=== PATIENT | female | born 1950 | race Caucasian/White ===

== ENCOUNTER → 2018-03-09 10:05 | Outpatient (CLI) | payer MEDICARE, OTHER, SELFPAY ==
[2018-03-09 12:46] LABS: Anion Gap 12 (5-15); BUN 15 mg/dL (7-18); BUN/Creat Ratio 22.9 RATIO (10-20); CRP, High Sensitivity Cardiac 1.84 mg/L; Calcium,Total 9.5 mg/dL (8.5-10.1); Chloride 105 mmol/L (98-107); Cholesterol 406 mg/dL (200); Creatinine, Serum 0.66 mg/dL (0.55-1.02); EST Glomerular Filtration Rate 96 mL/min (>60); Est Glom Filt Rate - Afr Amer 116 mL/min (>60); Glucose 92 mg/dL (74-106); High Density Lipoprotein 54 mg/dL; Sodium Level 143 mmol/L (136-145); Triglycerides 99 mg/dL; Very Low Density Lipoprotein 20 mg/dL (5-40)
[2018-03-09 12:50] LABS: Vitamin D,25 Hydroxy 59.2 ng/mL (29.95-100.01)
== END ==
PROVIDERS: Family Provider Family Medicine; PCP Family Medicine; Visit Provider Family Medicine
DX: I10 Essential (primary) hypertension (principal); E78.5 Hyperlipidemia, unspecified; E55.9 Vitamin D deficiency, unspecified
CPT/HCPCS: 36415; 80048; 80061; 82306; 86141

== ENCOUNTER → 2018-04-13 06:57 | Outpatient (CLI) | payer MEDICARE, OTHER, SELFPAY ==
--- NOTE | 2018-04-13 07:00 | BI_ITS ---
MAMMOGRAPHY - BILATERAL SCREENING 3-D HERBIE SYNTHESIS REASON FOR EXAM: Female, 68 years old. Bilateral Screening 3-D tomosynthesis PERTINENT HISTORY: Left breast carcinoma with lumpectomy and radiation treatment 2009. No significant family history. TECHNIQUE: 2-D mammograms and 3-D Heribe synthesis of the breast (s) were performed. CAD was performed. COMPARISON: 03/18/2017, 03/04/2016. FINDINGS: The breast composition is composed of scattered fibroglandular density. Scattered benign appearing calcifications are again seen. No dense spiculated dominant masses or suspicious microcalcification cluster are identified. No new architectural distortion, asymmetric density, adenopathy, skin thickening or nipple retraction identified. There has been no significant change since the most recent prior study including left breast postsurgical changes. BI/SCREENING MAMM (CAD), BILAT IMPRESSION: No mammographic sign of malignancy. Routine yearly mammograms recommended. ASSESSMENT CATEGORY: BIRADS Category 2: Benign. A letter regarding these results will be sent to the patient by the facility within 30 days. FOLLOW UP RECOMMENDATION: Yearly follow up mammogram recommended. (A) Negative mammographic results should not deter biopsy as a palpable lesion if present should be followed on clinical grounds and biopsy performed if clinically persistent for 3 months or increasing size. Approximately 10% of breast cancers are not detected by mammography. A normal mammogram should not delay biopsy of a clinically suspicious abnormality. Dense breast tissue mainstream neoplasm. Electronically Signed: Ramon Becerra, at 20:38 EDT Tel , Service support ,
== END ==
PROVIDERS: Family Provider Family Medicine; PCP Family Medicine; Referring Provider Family Medicine; Visit Provider Family Medicine
DX: Z12.31 Encounter for screening mammogram for malignant neoplasm of breast (principal)
CPT/HCPCS: 77063; 77067

== ENCOUNTER → 2018-10-31 14:51 | Outpatient (CLI) | payer MEDICARE, OTHER, SELFPAY ==
[2018-10-31 17:45] LABS: Absolute Lymphocyte Count 2.05 X10^3/ul (0.83-4.51); Absolute Neutrophil Count 4.5 X10^3/uL (2.0-7.7); Basophil# 0.04 X10^3/uL; Basophil% 0.5 % (0-1); Eosinophil# 0.25 X10^3/uL; Eosinophils% 3.4 % (0-5); Hematocrit 38.5 % (37-47); Hemoglobin 12.5 g/dl (12.0-15.0); Lymphocyte # 2.05 X10^3/ul (4.0); Lymphocyte % 27.8 % (19-41); Mean Corp Hgb Conc 32.5 g/gl (32-36); Mean Corpuscular Hgb 29.6 pg (27.0-32.0); Mean Platelet Vol. 9.2 fl (6.2-12.0); Monocyte# 0.49 X10^3/uL; Monocyte% 6.6 % (0-10); Neutrophil # 4.53 X10^3/uL (2.7-7.7); Neutrophil % 61.6 % (47-70); Platelet Count 296 K/mm3 (150-450); RBC Distribution Width CV 12.9 % (11.6-14.6); RBC Distribution Width SD 42.5 fl (35.1-43.9); Red Blood Count 4.23 M/mm3 (4.2-5.4); White Blood Count 7.4 K/mm3 (4.4-11.0)
[2018-10-31 17:46] LABS: POSITIVE COUNT NO; POSITIVE DIFFERENTIAL NO; POSITIVE MORPHOLOGY NO
[2018-10-31 18:18] LABS: AST(SGOT) 22 U/L (15-37); Alanine Aminotransfer ALT/SGPT 43 U/L (13-56); Alkaline Phosphatase 146 U/L (45-117); Anion Gap 8 (5-15); BUN 17 mg/dL (7-18); Calcium,Total 9.3 mg/dL (8.5-10.1); Chloride 105 mmol/L (98-107); Creatinine, Serum 0.63 mg/dL (0.55-1.02); EST Glomerular Filtration Rate 100 mL/min (>60); Est Glom Filt Rate - Afr Amer 121 mL/min (>60); Glucose 82 mg/dL (74-106); Potassium 3.6 mmol/L (3.5-5.1); Sodium Level 140 mmol/L (136-145); Thyroid Stim Hormone (TSH) 0.82 uIU/mL (0.358-3.74)
[2018-11-01 13:18] LABS: GGTP 141 U/L (5-55)
== END ==
PROVIDERS: Family Provider Family Medicine; PCP Family Medicine; Visit Provider Family Medicine
DX: R00.2 Palpitations (principal); R74.8 Abnormal levels of other serum enzymes
CPT/HCPCS: 36415; 80053; 82977; 84443; 85025

== ENCOUNTER → 2018-11-07 11:56 | Outpatient (CLI) | payer MEDICARE, OTHER, SELFPAY ==
[2018-11-07 12:03] LABS: Lyme Ab Screen Interpretation REF LAB
[2018-11-11 11:59] LABS: Lyme Scn Total Ab w/Rflx <0.91 ISR (0.00-0.90)
== END ==
PROVIDERS: Family Provider Family Medicine; PCP Family Medicine; Referring Provider Family Medicine; Visit Provider Family Medicine
DX: T14.8XXA Other injury of unspecified body region, initial encounter (principal); W57.XXXA Bitten or stung by nonvenomous insect and other nonvenomous arthropods, initial encounter; Y93.9 Activity, unspecified; Y92.9 Unspecified place or not applicable; Y99.9 Unspecified external cause status
CPT/HCPCS: 36415; 86618

== ENCOUNTER → 2018-11-08 08:47 | Outpatient (CLI) | payer MEDICARE, OTHER, SELFPAY ==
--- NOTE | 2018-11-08 08:51 | US_ITS ---
STUDY: ABDOMINAL ULTRASOUND - RIGHT UPPER QUADRANT REASON FOR VISIT: Female, 68 years old. Elevated liver enzymes. TECHNIQUE: Ultrasound evaluation of the right upper quadrant was performed with real-time and static connell-scale imaging. TECHNICAL QUALITY: Adequate. COMPARISON: None. FINDINGS: Liver: The liver measures 14.4 cm. There is normal echogenicity of the liver. The bile ducts are within normal limits. There is hepatic color flow. The direction of portal flow is hepatopetal. There is no demonstrated mass lesion. Gallbladder: Normal distended gallbladder. The gallbladder wall measures 2.3 mm. There is a negative sonographic Webb's sign. There is no pericholecystic fluid. There are no gallstones. There is a 4 mm polyp adherent to the gallbladder wall. Common Bile Duct (C.B.D.): The common bile duct measures 4.3 mm. Pancreas: Normal size of the head, body and tail of the pancreas. There is normal echogenicity of the pancreas. There is no demonstrated pancreatic mass or cyst. Right Kidney: Normal size of the right kidney. The right kidney measures 11 cm x 4.4 cm x 4.5 cm. Normal renal cortex. The right cortex measures 1.2 cm. There is no demonstrated renal mass or cyst. There is no right hydronephrosis. US/Abdomen Limited IMPRESSION: There is evidence of a 4 mm gallbladder polyp. Electronically Signed: Kurtis Plaza, at 15:41 EDT , Service support ,
== END ==
PROVIDERS: Family Provider Family Medicine; PCP Family Medicine; Referring Provider Family Medicine; Visit Provider Family Medicine
DX: R00.2 Palpitations (principal)
CPT/HCPCS: 76705

== ENCOUNTER → 2019-01-02 11:34 | Outpatient (CLI) | payer MEDICARE, OTHER, SELFPAY ==
[2019-01-02 14:29] LABS: AST(SGOT) 20 U/L (15-37); Alanine Aminotransfer ALT/SGPT 31 U/L (13-56); Albumin, Serum 3.8 g/dL (3.2-5.0); Alkaline Phosphatase 120 U/L (45-117); Bilirubin, Direct 0.06 mg/dL (0.00-0.30); GGTP 58 U/L (5-55); Globulin 3.7 g/dL (2.2-4.2); Protein, Total 7.5 g/dL (6.4-8.2)
== END ==
PROVIDERS: Family Provider Family Medicine; PCP Family Medicine; Visit Provider Family Medicine
DX: R74.8 Abnormal levels of other serum enzymes (principal)
CPT/HCPCS: 36415; 80076; 82977

== ENCOUNTER 2019-01-19 10:10 | Emergency (ER) | payer MEDICARE, OTHER, SELFPAY ==
[2019-01-19 10:12] VITALS: BP 172/77; PULSE 67; RESP 17; TEMP 36.7; O2SAT 99; BMI 24.4
--- NOTE | 2019-01-19 10:38 | RAD_ITS ---
STUDY: X-RAY CHEST REASON FOR EXAM: Female, 68 years old. Chest pain following a fall. TECHNIQUE: Single AP portable view of the chest. COMPARISON: None. FINDINGS: Hyperinflation. Scattered calcified granulomas. The lungs are clear. There is no demonstrated pleural abnormality. Normal size heart. Normal mediastinum and emiliano. Normal visualized pulmonary arteries. There is atherosclerotic calcification of the aortic arch with tortuosity. There are degenerative changes of the visualized thoracic spine. Normal visualized ribs, clavicles, and shoulders. There is no demonstrated abnormality of the visualized soft tissue structures of the upper abdomen. RAD/Chest 1 View (Portable) IMPRESSION: Hyperinflation. No acute abnormality is seen. Electronically Signed: Kurtis Plaza, at 11:05 EDT , Service support ,
--- NOTE | 2019-01-19 10:38 | RAD_ITS ---
STUDY: X-RAY - LEFT SHOULDER REASON FOR EXAM: Female, 68 years old. Shoulder pain following a fall. TECHNIQUE: 4 view(s) of the shoulder. COMPARISON: None. FINDINGS: Normal glenohumeral articulation. Normal acromioclavicular joint. Normal acromion. Nondisplaced avulsion fracture of the distal aspect of the left clavicle. Normal humeral head and visualized proximal humerus. The soft tissue structures are unremarkable. Normal visualized pulmonary apex. RAD/Shoulder min 2 Views IMPRESSION: Nondisplaced avulsion type fracture of the distal portion of the left clavicle. Electronically Signed: Kurtis Plaza, at 11:06 EDT , Service support ,
[2019-01-19] MEDS: fentaNYL 100 MCG/2 ML Ampul 50 MCG IM (10:43)
--- NOTE | 2019-01-19 11:17 | ED.DCSUM_ITS ---
- ER Visit Summary Date of Service: 01/19/19 Chief Complaint: Fall History of Present Illness: The patient is a [address] Herrera. She reports that she was moving a canopy down the steps and lost her balance. She fell off the steps today did not have a railing from approximately 5 to 6 feet. She reports that she has left shoulder pain that stated 10 severity at rest and 10 out of 10 with movement. She has neck pain is 5/10 severity. She is right- hand dominant. Patient denies any blood in the head or loss of consciousness. No wrist or hip pain. Physical Examination: Vitals: Stable. Afebrile. Neck: No vertebral tenderness. Full ROM without difficulty. Cleared by NEXUS criteria. Moderate tenderness palpation over the left trapezius muscle. Back: No vertebral tenderness. General: A&O x 3. NAD. Cardiovascular exam: Regular rate and rhythm, no murmur, rub or gallop. Respiratory exam: Chest nontender. No crepitus. Clear to auscultation bilaterally. No wheezes or stridor. Abdominal exam: Soft, nontender, nondistended, normal bowel sounds. No pain in RUQ or LUQ specifically. No peritoneal signs. Extremity: Severe tenderness palpation over the left AC joint. Mild tenderness palpation over the left deltoid. She is neurovascular intact distal to this. Test Results: Left shoulder x-ray shows a distal clavicle fracture. Chest x-ray shows no acute disease. Emergency Department Course and Treatment: Patient was treated with fentanyl IM prior to the x-rays. She was then given ibuprofen and Percocet p.o. She is placed in a sling. Treatment Plan: Patient will be discharged with Percocet and Colace. Instruction of Dr. Jourdan Valle within a week for another exam. Return to the emergency department for any worsening symptoms. Disposition: To home in improved and stable condition. Impression: 1. Fall. 2. Left clavicle fracture. This note was generated with [employer] dictation software. It may contain incorrect words, spelling, and punctuation that were not noted in review of the chart prior to signing ED Disposition - Plan for ED Patient: Instructions: FRACTURE, Clavicle Prescriptions: Docusate Sodium [Colace] 100 mg PO DAILY #20 cap Prescription Printed Oxycodone HCl/Acetaminophen [Percocet 5/325] 1 tab PO Q6H PRN PRN 5 Days #20 tab PRN Reason: Pain Prescription Printed Referrals: Jourdan Valle MD [STAFF PHYSICIAN] - 1 Week
[2019-01-19] MEDS: Ibuprofen 400 MG Tablet PO (13:00)
[2019-01-19] MEDS: oxyCODONE 5 MG Tablet PO (13:01)
[2019-01-19 13:07] VITALS: PULSE 65; RESP 14; RESP 17; O2SAT 98
== END 2019-01-19 13:10 | disposition home or self-care (01) ==
PROVIDERS: Emergency Provider Emergency Medicine; Family Provider Family Medicine; PCP Family Medicine
DX: S42.035A Nondisplaced fracture of lateral end of left clavicle, initial encounter for closed fracture (principal); M54.2 Cervicalgia; W10.9XXA Fall (on) (from) unspecified stairs and steps, initial encounter; Y93.9 Activity, unspecified; Y92.9 Unspecified place or not applicable; Y99.9 Unspecified external cause status; I10 Essential (primary) hypertension; Z79.899 Other long term (current) drug therapy; Z85.3 Personal history of malignant neoplasm of breast
CPT/HCPCS: 71045; 73030; 96372; 99284

== ENCOUNTER → 2019-05-03 07:37 | Outpatient (CLI) | payer MEDICARE, OTHER, SELFPAY ==
--- NOTE | 2019-05-03 07:40 | BI_ITS ---
MAMMOGRAPHY - BILATERAL SCREENING REASON FOR EXAM: Female, 69 years old. Routine annual screening examination. PERTINENT HISTORY: Personal history of breast cancer. Prior left lumpectomy with radiation therapy. TECHNIQUE: Digital bilateral breast herbie (3D mammographic acquisition) in the CC and MLO projections. 2-D mediolateral oblique (MLO) and craniocaudad (CC) views of both breasts were obtained. CAD: Full Field Digital Mammography with Computer Added Detection was performed. COMPARISON: Comparison is made with prior study dated April 13, 2018 and March 14, 2010. FINDINGS: Breast Composition: There are scattered areas of fibroglandular density. There are no dominant masses or suspicious calcifications. Stable postsurgical appearance of the upper outer quadrant of the left breast and keep with prior lumpectomy. No other significant abnormalities are identified. There has been no significant change since the prior study. BI/SCREEN MAMM (CAD) W/HERBIE BILAT IMPRESSION: Stable bilateral screening mammogram. Yearly follow-up mammogram recommended. (A) ASSESSMENT CATEGORY: BIRADS Category 2: Benign. A letter regarding these results will be sent to the patient by the facility within 30 days. Approximately 10% of breast cancers are not detected by mammography. A normal mammogram should not delay biopsy of a clinically suspicious abnormality. [id number] Electronically Signed: Kurtis Plaza, at 9:53 EDT , Service support ,
== END ==
PROVIDERS: Family Provider Family Medicine; PCP Family Medicine; Referring Provider Family Medicine; Visit Provider Family Medicine
DX: Z12.31 Encounter for screening mammogram for malignant neoplasm of breast (principal); Z85.3 Personal history of malignant neoplasm of breast
CPT/HCPCS: 77063; 77067

== ENCOUNTER → 2019-07-28 09:47 | Outpatient (CLI) | payer MEDICARE, OTHER, SELFPAY ==
[2019-07-28 12:49] LABS: Anion Gap 7 (5-15); BUN 27 mg/dL (7-18); BUN/Creat Ratio 34.5 RATIO (10-20); Calcium,Total 9.7 mg/dL (8.5-10.1); Chloride 105 mmol/L (98-107); Creatinine, Serum 0.78 mg/dL (0.55-1.02); EST Glomerular Filtration Rate 78 mL/min (>60); Est Glom Filt Rate - Afr Amer 94 mL/min (>60); Glucose 70 mg/dL (74-106); Potassium 3.8 mmol/L (3.5-5.1); Sodium Level 139 mmol/L (136-145)
== END ==
PROVIDERS: PCP Family Medicine; Referring Provider Family Medicine; Visit Provider Family Medicine
DX: I10 Essential (primary) hypertension (principal)
CPT/HCPCS: 36415; 80048

== ENCOUNTER → 2020-01-22 14:36 | Outpatient (CLI) | payer MEDICARE, OTHER, SELFPAY ==
--- NOTE | 2020-01-22 14:38 | CT_ITS ---
STUDY: CT LEFT ankle WITH CONTRAST REASON FOR EXAM: Female, 69 years old. PT STATED PAINLESS PALPABLE LUMPS POSTERIOR ANKLE RADIATION DOSAGE (If Supplied By Facility): CTDIvol = ( 6.13 ) mGy, DLP = ( 270.0 ) mGycm TECHNIQUE: Transaxial imaging of the pelvis was performed without oral contrast. IV 100ML ISOVUE 300 was administered intravenously. Individualized dose optimization techniques were used for this CT. COMPARISON: None. FINDINGS: The distal Achilles tendon is thickened measuring 2.6 cm in diameter. Thickened length is 10 cm. There are also calcifications within the tendon. 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 Other possibilities include tophaceous gout, chronic mucoid tendon degeneration, giant cell tumor of the tendon sheath. Bony structures are intact. There is NO intramuscular abnormality. CT/Extremity Lower WITH Contrast IMPRESSION: Distal Achilles tendon mass as described. Electronically Signed: Layo Hooker MD at 3:18 EDT , Service support ,
[2020-01-22 14:56] LABS: CREATININE FINGERSTICK < 0.6 mg/dL (0.55-1.02)
--- NOTE | 2020-01-24 00:50 | ED.RN ---
RADIOLOGY SUPPORT CALLED IN ASKING MORE DETAILS ABOUT EXAM AND REASON FOR ORDER ATTEMPTED TO FIND INFORMATION AT THIS TIME
== END ==
PROVIDERS: PCP Family Medicine; Referring Provider Family Medicine; Visit Provider Family Medicine
DX: R22.42 Localized swelling, mass and lump, left lower limb (principal)
CPT/HCPCS: 73701; Q9967

== ENCOUNTER → 2020-02-06 14:13 | Outpatient (CLI) | payer MEDICARE, OTHER, SELFPAY ==
--- NOTE | 2020-02-06 14:14 | RAD_ITS ---
STUDY: X-RAY - LEFT HAND REASON FOR EXAM: Lump posterior area of the third metacarpophalangeal joint, began years ago, growing with numbness. TECHNIQUE: 3 view(s) of the hand. COMPARISON: None. FINDINGS: There is osteopenia. Normal radiocarpal articulation. Normal distal radioulnar joint. Normal visualized carpal bones. There is moderate to severe joint space narrowing of the triscaphe articulation. There are marginal osteophytes and moderate to severe joint space narrowing of the carpometacarpal articulation of the thumb. Normal second through fifth carpometacarpal joints. Normal metacarpi. Normal metacarpophalangeal joint of the thumb. Normal interphalangeal joint of the thumb. Normal proximal and distal phalanges of the thumb. Normal metacarpophalangeal joints of the second through fifth fingers. Normal proximal and distal interphalangeal joints of the second through fifth fingers. Normal phalanges of the second through fifth fingers. There is a noncalcified soft tissue mass at the dorsal aspect of the third metacarpophalangeal joint. RAD/Hand Min 3 Views IMPRESSION: Soft tissue mass at the dorsal aspect of the third metacarpophalangeal joint. 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 Electronically Signed: Didier Leigh MD at 8:43 EDT Tel , Service support ,
== END ==
PROVIDERS: PCP Family Medicine; Referring Provider Orthopaedic Surgery; Visit Provider Orthopaedic Surgery
DX: M79.642 Pain in left hand (principal)
CPT/HCPCS: 73130

== ENCOUNTER → 2020-02-12 13:57 | Outpatient (CLI) | payer MEDICARE, OTHER, SELFPAY ==
[2020-02-06 15:13] VITALS: BMI 24.4
[2020-02-12 18:24] LABS: Anion Gap 6 (5-15); BUN 16 mg/dL (7-18); BUN/Creat Ratio 23.9 RATIO (10-20); Calcium,Total 9.7 mg/dL (8.5-10.1); Chloride 105 mmol/L (98-107); Creatinine, Serum 0.67 mg/dL (0.55-1.02); EST Glomerular Filtration Rate 93 mL/min (>60); Est Glom Filt Rate - Afr Amer 112 mL/min (>60); Glucose 109 mg/dL (74-106); Potassium 3.7 mmol/L (3.5-5.1); Sodium Level 140 mmol/L (136-145)
[2020-02-12 18:26] LABS: Vitamin D,25 Hydroxy 79.7 ng/mL
== END ==
PROVIDERS: PCP Family Medicine; Visit Provider Family Medicine
DX: I10 Essential (primary) hypertension (principal); E55.9 Vitamin D deficiency, unspecified
CPT/HCPCS: 36415; 80048; 82306

== ENCOUNTER → 2020-02-13 17:38 | Outpatient (CLI) | payer MEDICARE, OTHER, SELFPAY ==
[2020-02-06 15:13] VITALS: BMI 24.4
--- NOTE | 2020-02-13 17:39 | MRI_ITS ---
STUDY: MRI LEFT HAND (ATTENTION THIRD FINGER) REASON FOR EXAM: Lump at the dorsal aspect of the third metacarpophalangeal joint for 6-8 months, pain and numbness. TECHNIQUE: Standardized fat and water weighted pulse sequences were obtained in all 3 orthogonal planes. COMPARISON: Radiographs 02/06/2020. FINDINGS: Normal visualized metacarpals and visualized phalanges. There is very mild flexor tenosynovitis of the third digit at the level of the distal metacarpal diaphysis (inversion recovery axial images 4, 5). Otherwise, unremarkable flexor and extensor tendons. There are marginal osteophytes and chondral thinning of the first carpometacarpal articulation (T1 coronal images 8, 9). Normal second through fifth carpometacarpal articulations. There is a small subchondral cyst in the fourth metacarpal head (inversion recovery coronal image 9). Otherwise, unremarkable metacarpophalangeal joints. Normal interphalangeal joints. There is a soft tissue mass surrounding the third extensor tendon at the level of the metacarpophalangeal joint measuring approximately 0.6 x 1.2 x 1.3 cm (AP x transverse x length). The lesion is intermediate on T1 sequences (T1 coronal image 15; T1 axial images 11-13) and on T2 sequences (T2 sagittal image 21) with hypointense inversion recovery signal (inversion recovery coronal images 15, 16). MRI/Upper Ext/No Jt/ wo IMPRESSION: Soft tissue mass surrounding the third extensor tendon at the level of the metacarpophalangeal joint, giant cell tumor of the tendon sheath is a leading differential consideration. Very mild flexor tenosynovitis of the third digit. Arthrosis of the first carpometacarpal articulation. Electronically Signed: Didier Leigh MD at 7:41 EDT Tel , Service support ,
== END ==
PROVIDERS: PCP Family Medicine; Referring Provider Orthopaedic Surgery; Visit Provider Orthopaedic Surgery
DX: M25.842 Other specified joint disorders, left hand (principal)
CPT/HCPCS: 73218

== ENCOUNTER → 2020-06-05 07:14 | Outpatient (CLI) | payer MEDICARE, OTHER, SELFPAY ==
[2020-02-06 15:13] VITALS: BMI 24.4
--- NOTE | 2020-06-05 07:16 | BI_ITS ---
MAMMOGRAPHY - BILATERAL SCREENING REASON FOR EXAM: Female, 70 years old. Routine annual screening examination. PERTINENT HISTORY: Personal history of breast cancer. Prior left lumpectomy with radiation treatment. History of chronic bilateral inversion of the nipples. TECHNIQUE: Digital bilateral breast herbie (3D mammographic acquisition) in the CC and MLO projections. 2-D mediolateral oblique (MLO) and craniocaudad (CC) views of both breasts were obtained. CAD: Full Field Digital Mammography with Computer Added Detection was performed. COMPARISON: Comparison is made with prior study dated 05/03/2019 and 04/13/2018. FINDINGS: Breast Composition: There are scattered areas of fibroglandular density. There are no dominant masses or suspicious calcifications. Stable postsurgical changes are seen in the upper outer quadrant of the left breast in keeping with prior lumpectomy. No other significant abnormalities are identified. There has been no significant change since the prior study. BI/SCREEN MAMM (CAD) W/HERBIE BILAT IMPRESSION: Stable bilateral screening mammogram. Yearly follow-up mammogram recommended. (A) ASSESSMENT CATEGORY: BIRADS Category 2: Benign. A letter regarding these results will be sent to the patient by the facility within 30 days. Approximately 10% of breast cancers are not detected by mammography. A normal mammogram should not delay biopsy of a clinically suspicious abnormality. [id number] Electronically Signed: Kurtis Plaza, at 8:48 EST , Service support ,
== END ==
PROVIDERS: PCP Family Medicine; Referring Provider Family Medicine; Visit Provider Family Medicine
DX: Z12.31 Encounter for screening mammogram for malignant neoplasm of breast (principal); Z85.3 Personal history of malignant neoplasm of breast
CPT/HCPCS: 77063; 77067

== ENCOUNTER → 2020-12-10 14:59 | Outpatient (CLI) | payer MEDICARE, OTHER, SELFPAY ==
[2020-06-10 10:01] VITALS: BMI 24.6
[2020-12-10 18:18] LABS: Anion Gap 6 (5-15); BUN 20 mg/dL (7-18); BUN/Creat Ratio 29.1 RATIO (10-20); Calcium,Total 10.8 mg/dL (8.5-10.1); Chloride 102 mmol/L (98-107); Creatinine, Serum 0.69 mg/dL (0.55-1.02); EST Glomerular Filtration Rate 90 mL/min (>60); Est Glom Filt Rate - Afr Amer 108 mL/min (>60); Glucose 83 mg/dL (74-106); Potassium 3.5 mmol/L (3.5-5.1); Sodium Level 139 mmol/L (136-145)
== END ==
PROVIDERS: PCP Family Medicine; Visit Provider Family Medicine
DX: Z20.822 Contact with and (suspected) exposure to COVID-19 (principal)
CPT/HCPCS: 36415; 80048; 86769

== ENCOUNTER → 2021-02-26 08:35 | Outpatient (CLI) | payer MEDICARE, OTHER, SELFPAY | PROVIDERS: PCP Family Medicine; Referring Provider Family Medicine; Visit Provider Family Medicine | DX: Z20.822 Contact with and (suspected) exposure to COVID-19 (principal) | CPT/HCPCS: 36415; 86769 ==

== ENCOUNTER → 2021-06-13 09:14 | Outpatient (CLI) | payer MEDICARE, OTHER, SELFPAY ==
--- NOTE | 2021-06-13 09:18 | BI_ITS ---
MAMMOGRAPHY - BILATERAL SCREENING REASON FOR EXAM: Female, 71 years old. Routine annual screening examination. PERTINENT HISTORY: Personal history of breast cancer. Prior left lumpectomy and radiation treatment. TECHNIQUE: Digital bilateral breast herbie (3D mammographic acquisition) in the CC and MLO projections. 2-D mediolateral oblique (MLO) and craniocaudad (CC) views of both breasts were obtained. CAD: Full Field Digital Mammography with Computer Added Detection was performed. COMPARISON: Comparison is made with prior study dated 06/05/2020 and 05/03/2019. FINDINGS: Breast Composition: There are scattered areas of fibroglandular density. There are no dominant masses or suspicious calcifications. Once again, the patient is status post lumpectomy in the upper outer quadrant of the left breast with resultant postoperative deformity and scarring. This is unchanged. Stable benign appearing bilateral axillary lymph nodes. No other significant abnormalities are identified. There has been no significant change since the prior study. BI/SCRN MAMM (CAD)W/HERBIE BILAT IMPRESSION: Stable bilateral screening mammogram. Yearly follow-up mammogram recommended. (A) ASSESSMENT CATEGORY: BIRADS Category 2: Benign. A letter regarding these results will be sent to the patient by the facility within 30 days. Approximately 10% of breast cancers are not detected by mammography. A normal mammogram should not delay biopsy of a clinically suspicious abnormality. [id number] Electronically Signed: Kurtis Plaza MD at 10:26 EST , Service support ,
== END ==
PROVIDERS: PCP Family Medicine; Referring Provider Family Medicine; Visit Provider Family Medicine
DX: Z12.31 Encounter for screening mammogram for malignant neoplasm of breast (principal); Z85.3 Personal history of malignant neoplasm of breast
CPT/HCPCS: 77063; 77067

== ENCOUNTER → 2021-11-10 | Outpatient (CLI) | payer MEDICARE, OTHER, SELFPAY ==
[2021-11-10 15:50] LABS: Anion Gap 7 (5-15); BUN 18 mg/dL (7-18); BUN/Creat Ratio 23.9 RATIO (10-20); Calcium,Total 9.8 mg/dL (8.5-10.1); Chloride 106 mmol/L (98-107); Cholesterol 392 mg/dL (200); Creatinine, Serum 0.75 mg/dL (0.55-1.02); EST Glomerular Filtration Rate 81 mL/min (>60); Est Glom Filt Rate - Afr Amer 97 mL/min (>60); Glucose 89 mg/dL (74-106); High Density Lipoprotein 55 mg/dL; Potassium 4.1 mmol/L (3.5-5.1); Sodium Level 140 mmol/L (136-145); Triglycerides 119 mg/dL; Very Low Density Lipoprotein 24 mg/dL (5-40)
== END | disposition home or self-care (01) ==
LOC: MFPLAB 10:12
PROVIDERS: PCP Family Medicine; Visit Provider Family Medicine
DX: I10 Essential (primary) hypertension (principal)
CPT/HCPCS: 36415; 80048; 80061

== ENCOUNTER → 2022-11-23 | Outpatient (CLI) | payer MEDICARE, OTHER, SELFPAY ==
[2022-11-23 10:46] LABS: AST(SGOT) 17 U/L (15-37); Alanine Aminotransfer ALT/SGPT 31 U/L (13-56); Anion Gap 8 (5-15); BUN 24 mg/dL (7-18); BUN/Creat Ratio 34.4 RATIO (10-20); Calcium,Total 9.3 mg/dL (8.5-10.1); Chloride 106 mmol/L (98-107); Cholesterol 380 mg/dL (200); EST Glomerular Filtration Rate 88 mL/min (>60); Est Glom Filt Rate - Afr Amer 106 mL/min (>60); Glucose 105 mg/dL (74-106); High Density Lipoprotein 56 mg/dL; Potassium 3.9 mmol/L (3.5-5.1); Sodium Level 141 mmol/L (136-145); Triglycerides 96 mg/dL; Very Low Density Lipoprotein 19 mg/dL (5-40)
== END | disposition home or self-care (01) ==
LOC: MFPLAB 08:05
PROVIDERS: PCP Family Medicine; Visit Provider Family Medicine
DX: E78.5 Hyperlipidemia, unspecified (principal); I10 Essential (primary) hypertension
CPT/HCPCS: 36415; 80048; 80061; 84450; 84460

== ENCOUNTER → 2022-12-08 | Outpatient (CLI) | payer MEDICARE, OTHER, SELFPAY ==
--- NOTE | 2022-12-08 16:20 | RAD_ITS ---
EXAM: XR SACRUM AND COCCYX, 2 OR MORE VIEWS CLINICAL INDICATION: SACROILIAC PAIN TECHNIQUE: Frontal and lateral views of the sacrum and coccyx. COMPARISON: No relevant prior studies available. FINDINGS: SACRUM/COCCYX: Unremarkable. No displaced fracture. No destructive or sclerotic lesions. Note that overlapping bowel shadows may however obscure fine detail in the frontal view. Sacroiliac joints are unremarkable. SOFT TISSUES: Unremarkable. No soft tissue swelling or gas. RAD/S-I Jts 3 or More Views IMPRESSION: Unremarkable sacro-coccygeal spine. Electronically Signed: Magdiel Hare MD at 17:24 EDT ,
== END | disposition home or self-care (01) ==
LOC: MTRAD 16:18
PROVIDERS: PCP Family Medicine; Referring Provider Family Medicine; Visit Provider Family Medicine
DX: M53.3 Sacrococcygeal disorders, not elsewhere classified (principal)
CPT/HCPCS: 72202

== ENCOUNTER → 2022-12-17 | Outpatient (CLI) | payer MEDICARE, OTHER, SELFPAY ==
--- NOTE | 2022-12-17 14:23 | BI_ITS ---
MAMMOGRAPHY - BILATERAL SCREENING REASON FOR EXAM: Female, 72 years old. Routine annual screening examination. PERTINENT HISTORY: Personal history of breast cancer. Prior left lumpectomy and radiation treatment. Bilateral nipple inversion. TECHNIQUE: Digital bilateral breast herbie (3D mammographic acquisition) in the CC and MLO projections. 2-D mediolateral oblique (MLO) and craniocaudad (CC) views of both breasts were obtained. CAD: Full Field Digital Mammography with Computer Added Detection was performed. COMPARISON: Comparison is made with prior study dated June 13, 2021 and June 05, 2020. FINDINGS: Breast Composition: There are scattered areas of fibroglandular density. There are no dominant masses or suspicious calcifications. The patient is status post lumpectomy in the deep central lateral aspect of the left breast with resultant scarring. No other significant abnormalities are identified. There has been no significant change since the prior study. BI/SCRN MAMM (CAD)W/HERBIE BILAT IMPRESSION: Stable bilateral screening mammogram. Yearly follow-up mammogram recommended. (A) ASSESSMENT CATEGORY: BIRADS Category 2: Benign. A letter regarding these results will be sent to the patient by the facility within 30 days. Approximately 10% of breast cancers are not detected by mammography. A normal mammogram should not delay biopsy of a clinically suspicious abnormality. [id number] Electronically Signed: Kurtis Plaza MD at 15:40 EDT ,
--- NOTE | 2022-12-17 14:28 | BD_ITS ---
STUDY: DUAL ENERGY X-RAY ABSORPTIOMETRY / DXA REASON FOR EXAM: Female, 72 years old. N95.9 TECHNIQUE: Bone Mineral Density (BMD) measurements of lumbar spine and bilateral hips were obtained. COMPARISON: Comparison is made with prior study dated January 25, 2017. FINDINGS: Lumbar Spine (L1-L4): g/cm2 (0.705) / T-score (-3.1) / Z-score (-0.8) Findings are suggestive of osteoporosis with a high fracture risk. Left Femur Total: g/cm2 (0.610) / T-score (-2.7) / Z-score (-1.1) Left Femoral Neck: g/cm2 (0.462) / T-score (-3.5) / Z-score (-1.5) Right Femur Total: g/cm2 (0.633) / T-score (-2.5) / Z-score (-0.9) Right Femoral Neck: g/cm2 (0.521) / T-score (-3.0) / Z-score (-1.0) The T-Scores on the most recent prior examination were: Lumbar Spine (L1-L4): There has been worsening of bone density since the previous examination. Left Femur Total: which represents a worsening of 4.3%. Right Femur Total: which represents a worsening of 0.2%. BD/Dexa Bone Density Study IMPRESSION: The patient is considered osteoporotic as outlined below according to World [employer] (WHO) criteria with a high fracture risk. There has been worsening of bone density since the previous examination. Reference Information: The T-score is the number of standard deviations above or below the standard which is normal for young adults at their peak bone mineral density. The World Health Organization (WHO) interprets the T-scores as follows: Above -1 Normal bone density Between -1 and -2.5 Osteopenia Equal to / or below -2.5 Osteoporosis As a practical clinical guideline, osteopenia may be graded as follows: Mild -1 through -1.5 Moderate -1.6 through -2.0 Severe -2.1 through -2.4 The Z-score is the number of standard deviations above or below age-matched controls. A Z-score of less than -1.5 would be considered abnormal. References: 1. NIH Osteoporosis and Related Bone Diseases www osteo.org 2. International Society for Clinical Densitometry www iscd.org 3. National Osteoporosis Foundation www nof.org Electronically Signed: Kurtis Plaza MD at 14:41 EDT ,
== END | disposition home or self-care (01) ==
LOC: OPBI 14:20
PROVIDERS: PCP Family Medicine; Referring Provider Family Medicine; Visit Provider Family Medicine
DX: Z12.31 Encounter for screening mammogram for malignant neoplasm of breast (principal); M81.0 Age-related osteoporosis without current pathological fracture; N95.9 Unspecified menopausal and perimenopausal disorder; Z85.3 Personal history of malignant neoplasm of breast
CPT/HCPCS: 77063; 77067; 77080

== ENCOUNTER 2023-02-09 09:30 | Outpatient (RCR) | payer MEDICARE, OTHER, SELFPAY ==
--- NOTE | 2022-12-22 08:45 | HP.PTEVAL_ITS ---
Patient's Visit Information FATOUMATA NUNEZ is a 72 year old F referred to Physical Therapy by Dr. Angelique Herrera MD with a diagnosis of SI Pain. Date of Evaluation: 12/22/22 Physical Therapist: GINNY West - Visit Plan Frequency: 2x /Week Duration: 2 Months Plan: 2X/ week for 8 weeks for L LE 90/90 nerve root stretching, L IT band stretching, LTR, Piriformis stretches, neutral spine core stability. +++Pt does have microtears in B achilles with increase inflammation present...stretching on her own and being seen for that by another Dr+++. HEP: 90/90 nerve root stretch L, bridges, supine hip ball squeeze, LTR with knees more up in flexion to get more stretch into SI area - Subjective This started mid September and woke up one morning. The pain is on L side and points to SI area. It is painful when she is sitting, walking. Pain is getting worse with walking. She has been wearing a back brace. Heat feels soothing to it. She has pain in the L ankle and calf. She also has microtears in her achilles. Her pain radiates to that area and it is a sharp pain. She has to stand sometimes. Dr Herrera did an x-ray and that came back normal. She feels weakness on the L LE especially on the L and will feel like it will give out with sit to stand. If she lays on her L side she has spasm and tight and painful. Last night she slept in a recliner and not as stiff or as spasms. - Pain SI pain Pain Intensity (Out of 10): 4 L ankle Pain Intensity (Out of 10): 6 - Objective Gait: Walks with decrease stride length and flexed trunk. LE MMT: R hip flex 15.5 and L 11.8. R knee ext 14.1 and L 15.7. R knee flex 13.3 and L 15.2. Supine hip abd R 16 and L 16.5. Hip ext B 3+/5 with increase pain. Standing he el and toe raises: able without and UE assistance. Patella DTR 1+/3 B. SLUMP Test +on the R for L sided back pain and only a little pain on the R. SLR test: + on the L and on the R for L sided back pain. Pt is tight on the L side IT band, Neural tension of sciatic nerve, HS. Supine 90/90 floss: very painful on the L but the more she did it the better she was able to move. Trunk AROM: Fle x 25, Ext 10, SB B 50%, Rot L 25%, Rot R 50%. Stairs: up and down one at a time with a railing due to pain - Balance/Special Test Scores Oswestry Low Back Score: 25 - Goals Goal 1:: I HEP Goal Time Frame: 6-8 Weeks Goal 2:: Increase stride length with gait and be able to get back to normal 2 mile walks per day Goal Time Frame: 6-8 Weeks Goal 3:: Increase pain free trunk AROM (at time of the eval: Trunk AROM: Flex 25, Ext 10, SB B 50%, Rot L 25%, Rot R 50%) Goal Time Frame: 6-8 Weeks Goal 4:: Increase hip ext strength and with no pain (3+/5 at eval B with pain) Goal Time Frame: 6-8 Weeks - Rehabilitation Potential Rehabilitation Potential: Good - Anticipated Interventions Patient/Client Instruction: Educate patient on: Condition, Plan of Care For the Purpose of:: To decrease pain, To increase ROM, To improve nutrient delivery to tissue, To improve muscle performance and motor function, To improve ability to perform ADL's, To increase tolerance to activity/condition/position, To improve performance and independence with ADL's, To decrease level of supervision to perform tasks, To improve ability of physical actions for home/community/work/leisure, To improve gait and locomotor functions, To improve health of tissue, To decrease soft tissue restriction, To increase flexibility/ROM Therapeutic Exercise to Include: Strength training, Postural training, Flexibilty training, Gait and locomotor training, Neuromotor development, Passive ROM, Active ROM, Dynamic Lumbar Stabilization For the Purpose of:: To decrease pain, To increase ROM, To improve nutrient delivery to tissue, To improve muscle performance and motor function, To improve ability to perform ADL's, To increase tolerance to activity/condition/position, To improve performance and independence with ADL's, To improve ability of physical actions for home/community/work/leisure, To improve health of tissue, To decrease soft tissue restriction, To increase flexibility/ROM Functional Training to Include: Gait training For the Purpose of:: To improve gait and locomotor functions Manual Therapy Techniques to Include: Mobilization, Passive ROM, Soft tissue mobilization For the Purpose of:: To decrease pain, To decrease swelling/inflammation, To improve nutrient delivery to tissue, To improve muscle performance and motor function, To improve ability to perform ADL's, To increase tolerance to activity/condition/position Thank you for the opportunity to evaluate your patient. For Medicare and Medicare HMO plans, please review the plan of care and approve it. It will need to be FAXED BACK to us at [phone] for Medicare purposes. For Medicare only, by signing this I certify the plan of care. Please let me know if there are questions or concerns regarding this plan of care. Physician Signature: Date:
--- NOTE | 2023-01-04 10:28 | HP.PTDCSUM ---
Discharge Summary D/C summary: It has been my pleasure to treat FATOUMATA NUNEZ referred by Dr. Angelique Herrera MD, with the diagnosis of SI Pain for a total of 3 visit(s). Discharge Date: Please see the following information for a summary of their discharge status. Subjective Subjective: Patient reports sharp, stabbing, throbbing and some burning pain in buttocks and ankle. Fluctuates between 4-8 pain when up and moving. Ankle pain has been more frequent and when sitting pain is a 8-10 Pain SI pain: Pain Intensity (Out of 10): 4 L ankle: Pain Intensity (Out of 10): 8 Objective Objective/Function: Patient had pinpoint pain and tenderness along piriformis. Continued with stretches with patient stating the stretches seem to help in the moment and added US today. Goals Goal 1:: I HEP Goal 2:: Increase stride length with gait and be able to get back to normal 2 mile walks per day Goal 3:: Increase pain free trunk AROM (at time of the eval: Trunk AROM: Flex 25, Ext 10, SB B 50%, Rot L 25%, Rot R 50%) Goal 4:: Increase hip ext strength and with no pain (3+/5 at eval B with pain) Plan Plan: Trial of US along the L piriformis muscle belly and continue with stretches 2X/ week for 8 weeks for L LE 90/90 nerve root stretching, L IT band stretching, LTR, Piriformis stretches, neutral spine core stability +++Pt does have microtears in B achilles with increase inflammation present...stretching on her own and being seen for that by another Dr+++ HEP: 90/90 nerve root stretch L, bridges, supine hip ball squeeze, LTR with knees more up in flexion to get more stretch into SI area D/C Information d/c sentence: If there are questions or concerns regarding this patient's physical therapy, please feel free to call me at [phone]. Thank you for the referral of this patient. Sincerely, Jason Jurado, PT, Cert MDT, OCS Balance/Gait/Functional tests Balance/Special Test Scores Oswestry Low Back Score: 25
--- NOTE | 2023-02-09 09:51 | HP.PTDCSUM ---
Discharge Summary D/C summary: It has been my pleasure to treat FATOUMATA NUNEZ referred by Dr. Angelique Herrera MD, with the diagnosis of SI Pain for a total of 10 visit(s). Discharge Date: 02/09/23 Please see the following information for a summary of their discharge status. Subjective Subjective: Pt back is much better since the injection in her back. She now has an appt with Dr Santos for her B achilles cause she is afraid it will rupture. She is still doing her exercises. She had an amazing vacation. Pain SI pain: Pain Intensity (Out of 10): 1 L ankle: Pain Intensity (Out of 10): 0 Overall Improvement % Improvement: 100 Objective Objective/Function: Trunk AROM: Flex 75, Ext 50, SB B 90%, Rot B 75% Gait: Walks with decrease stride and decreased heel to toe gait pattern. If we try and increase stride her back now feels fine but she still walks with less PF and push off... Pt admits to being fearful of ankles and them tearing more. Hip ext strength: 4/5 B Goals Goal 1:: I HEP Goal Progress: Goal Met Goal 2:: Increase stride length with gait and be able to get back to normal 2 mile walks per day Goal Progress: Progressing Goal 3:: Increase pain free trunk AROM (at time of the eval: Trunk AROM: Flex 25, Ext 10, SB B 50%, Rot L 25%, Rot R 50%) Goal Progress: Goal Met Goal 4:: Increase hip ext strength and with no pain (3+/5 at eval B with pain) Goal Progress: Goal Met Plan Plan: DC PT to HEP. Pt to go to about her B achilles issues D/C Information Discharge Comments: DC PT to HEP d/c sentence: If there are questions or concerns regarding this patient's physical therapy, please feel free to call me at [phone]. Thank you for the referral of this patient. Sincerely, Kimberly Gonsales, MPT Balance/Gait/Functional tests Balance/Special Test Scores Oswestry Low Back Score: 0
== END 2023-02-09 10:00 | disposition home or self-care (01) ==
LOC: PT 09:30
PROVIDERS: PCP Family Medicine; Referring Provider Family Medicine; Visit Provider Family Medicine
DX: M53.3 Sacrococcygeal disorders, not elsewhere classified (principal)
CPT/HCPCS: 97035; 97110; 97161; 97530

== ENCOUNTER → 2023-03-03 | Outpatient (CLI) | payer MEDICARE, OTHER, SELFPAY | END | disposition home or self-care (01) | LOC: LABSPEC 14:06 | PROVIDERS: PCP Family Medicine; Visit Provider Family Medicine | DX: N39.0 Urinary tract infection, site not specified (principal) | CPT/HCPCS: 87086; 87088; 87186 ==

== ENCOUNTER → 2023-11-22 | Outpatient (CLI) | payer MEDICARE, OTHER, SELFPAY ==
[2023-11-22 13:06] LABS: Vitamin D,25 Hydroxy 121.2 ng/mL
[2023-11-22 13:21] LABS: Anion Gap 3 (5-15); BUN 19 mg/dL (7-18); BUN/Creat Ratio 28.4 RATIO (10-20); Calcium,Total 9.6 mg/dL (8.5-10.1); Chloride 105 mmol/L (98-107); Cholesterol 403 mg/dL (200); Creatinine, Serum 0.67 mg/dL (0.55-1.02); EST Glomerular Filtration Rate 92 mL/min (>60); Est Glom Filt Rate - Afr Amer 111 mL/min (>60); Glucose 95 mg/dL (74-106); High Density Lipoprotein 52 mg/dL; Potassium 3.7 mmol/L (3.5-5.1); Sodium Level 138 mmol/L (136-145); Triglycerides 141 mg/dL; Very Low Density Lipoprotein 28 mg/dL (5-40)
[2023-11-22 13:27] LABS: Protein, Urine (Random) < 6.0 mg/dL (<11.9)
== END | disposition home or self-care (01) ==
LOC: MFPLAB 09:59
PROVIDERS: PCP Family Medicine; Visit Provider Family Medicine
DX: I10 Essential (primary) hypertension (principal); E55.9 Vitamin D deficiency, unspecified
CPT/HCPCS: 36415; 80048; 80061; 82306; 82570; 84156

== ENCOUNTER → 2023-12-17 | Outpatient (CLI) | payer MEDICARE, OTHER, SELFPAY ==
--- NOTE | 2023-12-17 13:45 | RAD_ITS ---
EXAM: XR RIGHT SHOULDER COMPLETE, 2 OR MORE VIEWS CLINICAL INDICATION: pain -- R TECHNIQUE: Two or more views of the right shoulder. COMPARISON: No relevant prior studies available. FINDINGS: BONES/JOINTS: Unremarkable. No acute fracture. No subluxation. Normal alignment. Preservation of the joint space. No sclerotic or destructive changes observed. SOFT TISSUES: Unremarkable. No soft tissue swelling or gas. No radiopaque foreign body. RAD/Shoulder min 2 Views IMPRESSION: Negative right shoulder x-rays. Electronically Signed: Segun Choe MD at 16:14 EDT ,
== END | disposition home or self-care (01) ==
LOC: MTRAD 13:42
PROVIDERS: PCP Family Medicine; Referring Provider Family Medicine; Visit Provider Family Medicine
DX: M75.80 Other shoulder lesions, unspecified shoulder (principal)
CPT/HCPCS: 73030

== ENCOUNTER → 2023-12-21 | Outpatient (CLI) | payer MEDICARE, OTHER, SELFPAY ==
--- NOTE | 2023-12-21 09:30 | BI_ITS ---
MAMMOGRAPHY - BILATERAL SCREENING REASON FOR EXAM: Female, 73 years old. Routine annual screening examination. PERTINENT HISTORY: Personal history of breast cancer. Prior left lumpectomy with radiation treatment. Chronic inversion of both nipples. TECHNIQUE: Digital bilateral breast herbie (3D mammographic acquisition) in the CC and MLO projections. 2-D mediolateral oblique (MLO) and craniocaudad (CC) views of both breasts were obtained. CAD: Full Field Digital Mammography with Computer Added Detection was performed. COMPARISON: Comparison is made with prior study dated December 17, 2022 and June 13, 2021. FINDINGS: Breast Composition: There are scattered areas of fibroglandular density. There are no dominant masses or suspicious calcifications. The patient is status post lumpectomy with resultant postoperative changes in the central lateral aspect of the left breast. No other significant abnormalities are identified. There has been no significant change since the prior study. BI/SCRN MAMM (CAD)W/HERBIE BILAT IMPRESSION: Stable bilateral screening mammogram. Yearly follow-up mammogram recommended. (A) ASSESSMENT CATEGORY: BIRADS Category 2: Benign. A letter regarding these results will be sent to the patient by the facility within 30 days. Approximately 10% of breast cancers are not detected by mammography. A normal mammogram should not delay biopsy of a clinically suspicious abnormality. [id number] Electronically Signed: Kurtis Plaza MD at 10:13 EDT ,
== END | disposition home or self-care (01) ==
LOC: OPBI 09:30
PROVIDERS: PCP Family Medicine; Referring Provider Family Medicine; Visit Provider Family Medicine
DX: Z12.31 Encounter for screening mammogram for malignant neoplasm of breast (principal); Z85.3 Personal history of malignant neoplasm of breast; Z92.3 Personal history of irradiation
CPT/HCPCS: 77063; 77067

== ENCOUNTER 2024-01-21 10:00 | Outpatient (RCR) | payer MEDICARE, OTHER, SELFPAY | END 2024-01-21 19:00 | disposition home or self-care (01) | LOC: PT 10:00 | PROVIDERS: PCP Family Medicine; Referring Provider Family Medicine; Visit Provider Family Medicine | DX: M77.9 Enthesopathy, unspecified (principal) | CPT/HCPCS: 97014; 97032; 97110; 97162; 97530; G0283 ==

== ENCOUNTER → 2024-03-02 | Outpatient (CLI) | payer MEDICARE, OTHER, SELFPAY ==
--- NOTE | 2024-03-02 13:28 | EKG12_ITS ---
Test Reason : PRE OP Blood Pressure : / mmHG Vent. Rate : 069 BPM Atrial Rate : 069 BPM P-R Int : 184 ms QRS Dur : 072 ms QT Int : 402 ms P-R-T Axes : 083 081 058 degrees QTc Int : 430 ms Normal sinus rhythm Normal ECG Confirmed by Jw Camacho ([id number]), market editor CHRIS TOLEDO ([id number]) on 03/03/2024 6:31:31 AM Referred By: Rosalba Andino Confirmed By:Jw Camacho
[2024-03-02 13:34] LABS: Absolute Lymphocyte Count 1.91 X10^3/uL (0.83-4.51); Absolute Neutrophil Count 3.7 X10^3/uL (2.0-7.7); Basophil# 0.05 X10^3/uL; Basophil% 0.8 % (0-1); Eosinophils% 4.7 % (0-5); Hematocrit 36.7 % (37-47); Hemoglobin 12.2 g/dL (12.0-15.0); Lymphocyte # 1.91 X10^3/ul (0.83-4.51); Lymphocyte % 29.9 % (19-41); Mean Corp Hgb Conc 33.2 g/dL (32-36); Mean Corpuscular Hgb 30.6 pg (27.0-32.0); Monocyte# 0.45 X10^3/uL; NRBC Flagged by Analyzer 0 % (0-5); Neutrophil # 3.67 X10^3/uL (2.7-7.7); Neutrophil % 57.4 % (47-70); Platelet Count 292 K/mm3 (150-450); RBC Distribution Width CV 12.1 % (11.6-14.6); RBC Distribution Width SD 40.6 fl (35.1-43.9); Red Blood Count 3.99 M/mm3 (4.2-5.4); White Blood Count 6.4 K/mm3 (4.4-11.0)
[2024-03-02 13:55] LABS: Anion Gap 7 (5-15); BUN 20 mg/dL (7-18); BUN/Creat Ratio 26.6 RATIO (10-20); Calcium,Total 9.4 mg/dL (8.5-10.1); Chloride 103 mmol/L (98-107); Creatinine, Serum 0.75 mg/dL (0.55-1.02); EST Glomerular Filtration Rate 80 mL/min (>60); Est Glom Filt Rate - Afr Amer 97 mL/min (>60); Glucose 93 mg/dL (74-106); Sodium Level 138 mmol/L (136-145)
== END | disposition home or self-care (01) ==
LOC: PSN 13:18
PROVIDERS: PCP Family Medicine; Referring Provider Physician Assistant Surgical; Visit Provider Physician Assistant Surgical
DX: Z01.810 Encounter for preprocedural cardiovascular examination (principal)
CPT/HCPCS: 36415; 80048; 85025; 93005

== ENCOUNTER → 2024-12-01 | Outpatient (CLI) | payer MEDICARE, OTHER, SELFPAY ==
[2024-12-01 13:16] LABS: Cholesterol 427 mg/dL (<=200); Hemoglobin A1c 5.7 % (<=5.6); High Density Lipoprotein 53 mg/dL; Low Density Lipoprotein Calc. 353 mg/dL; Triglycerides 103 mg/dL; Very Low Density Lipoprotein 21 mg/dL (5-40); cholesterol:hdl ratio screen 8.04
== END | disposition home or self-care (01) ==
LOC: MFPLAB 10:48
PROVIDERS: PCP Family Medicine; Visit Provider Family Medicine
DX: Z13.220 Encounter for screening for lipoid disorders (principal); Z13.1 Encounter for screening for diabetes mellitus
CPT/HCPCS: 36415; 80061; 83036

== ENCOUNTER → 2025-01-02 | Outpatient (CLI) | payer MEDICARE, OTHER, SELFPAY ==
--- NOTE | 2025-01-02 15:49 | BI_ITS ---
EXAM: SCRN MAMM (CAD)W/HERBIE BILAT DATE: 01/02/2025 CLINICAL HISTORY: F, Age 74 y/o , SCREENING FOR BREAST CANCER TECHNIQUE: SCRN MAMM (CAD)W/HERBIE BILAT COMPARISON: Prior exam(s) were compared FINDINGS: TISSUE DENSITY: The breasts are heterogeneously dense, which may obscure small masses. Bilateral Breast Mammographic Findings: No significant masses, calcifications or other abnormalities are identified. BI/SCRN MAMM (CAD)W/HERBIE BILAT IMPRESSION: No mammographic evidence of malignancy in either breast. OVERALL FINAL ASSESSMENT BI-RADS 1: NEGATIVE. RECOMMEND ANNUAL MAMMOGRAPHIC SCREENING. RECOMMENDATION: Routine annual follow-up in 1 Year A letter with findings and recommendations will be mailed to the patient. Reading Location: [id number]
--- NOTE | 2025-01-02 15:51 | BD_ITS ---
PROCEDURE: DEXA BONE DENSITY STUDY 01/02/2025 REASON FOR EXAM: F, age 74 y/o . TECHNIQUE: DEXA BONE DENSITY STUDY COMPARISON: DEXA scan on 12/17/2022 FINDINGS: BMD and T-SCORES Lumbar spine: 0.697 g/cm2, T-score -3.2 Levels: L1 through L4 Change from prior: No significant change in BMD.. Left femoral neck: 0.525 g/cm2, T-score -2.9 Femoral neck comparison data not recommended for monitoring change. Prior T-score -3.5 Left total hip: 0.597 g/cm2, T-score -2.8 Change from prior: No significant change in BMD.. Right femoral neck: 0.503 g/cm2, T-score -3.1 Femoral neck comparison data not recommended for monitoring change. Prior T-score -3.0 Right total hip: 0.605 g/cm2, T-score -2.8 Change from prior: Statistically significant BMD decrease of 4.4%. The World Health Organization has defined the following categories based on bone density: Normal bone density: T-score equal to or greater than -1.0 Osteopenia: T-score between -1.0 and -2.5 Osteoporosis: T-score equal to or less than -2.5 BD/Dexa Bone Density Study IMPRESSION: OSTEOPOROSIS. Reading Location: [id number]
== END | disposition home or self-care (01) ==
LOC: OPBD 15:45
PROVIDERS: PCP Family Medicine
DX: Z13.820 Encounter for screening for osteoporosis (principal); N95.9 Unspecified menopausal and perimenopausal disorder; Z12.31 Encounter for screening mammogram for malignant neoplasm of breast
CPT/HCPCS: 77063; 77067; 77080

== ENCOUNTER → 2025-03-26 | Outpatient (CLI) | payer MEDICARE, OTHER, SELFPAY ==
--- OUTSIDE RECORDS SUMMARY | 2025-03-26 10:29 | XMS RPT_ITS | CCD ---
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 Angelique Saavedra Primary Care Provider Javier ESPARZA, Dr. Angelique Saavedra Referring Provider [phone] Janice ESPARZA, Dr. Escalera Attending Provider Javier ESPARZA, Dr. Angelique Saavedra Attending Provider [phone] [facility] FNPS-CAnjel Attending Provider [phone] [facility] FNPS-C, Anjel Referring Provider [phone] Javier Angelique S Referring Unavailable Joaleksandriff, Angelique S Primary Care Unavailable Jw Camacho Attending Unavailable Jw Camacho Attending Unavailable Rosalba Andino Referring Unavailable Jolliff, Angelique S Primary Care Unavailable Jolliff, Angelique S Primary Care Unavailable Christiano Arnold Consulting Unavailable Rosalba Andino Attending Unavailable Rosalba Andino Referring Unavailable Jolliff, Angelique S Attending Unavailable Jolliff, Angelique S Primary Care Unavailable Joaleksandriff, Angelique S Primary Care Unavailable [facility] FNPSAnjel Attending Unavailable McMorrow FNPSAnjel Referring Unavailable Jolliff, Angelique S Primary Care Unavailable Jolliff, Angelique S Attending Unavailable Jolliff, Angelique S Referring Unavailable Allergies Allergy Classification Reported Allergen(s) Allergy Type Date of Onset Reaction(s) Facility (3 sources) Qbtrpsy-Yjr-Ufq Reductase Inhibitor Propensity to adverse reactions 5 myalgia [facility] (1 source) Eaxatvp-Bal-Hka Reductase Inhibitor Drug allergy (disorder) 5 [facility] Repository Medications Current Medications Medication Drug Class(es) Dates Sig (Normalized) Sig (Original) aspirin 81 mg delayed release oral tablet (3 sources) Platelet Aggregation Inhibitor, Nonsteroidal Anti-inflammator y Drug Start: 5 Aspirin (Adult Low Dose Aspirin) 81 mg tablet,delayed release (DR/EC) Active 81 mg PO daily November 13, 2024 12:00am Chondroitin Sulfates / Glucosamine (3 sources) Start: 5 Glucosamine-Chondroiti n (Osteo Bi-Flex) 250-200 mg tablet Active 2 {tbl} PO daily November 13, 2024 12:00am 1 ml evolocumab 140 mg/ml auto-injector (2 sources) PCSK9 Inhibitor Start: 5 Evolocumab (Repatha Sureclick) 140 mg/mL pen injector Active 140 mg SC every 2 weeks 2 November 22, 2024 3:20pm hydroCHLOROthiazide 25 mg oral tablet (7 sources) Thiazide Diuretic Start: 6 take 1 tablet by mouth once daily Hydrochlorothiazide 25 MG tablet Active 25 mg PO DAILY December 10, 2015 12:00am lisinopril 40 mg oral tablet (10 sources) Angiotensin Converting Enzyme Inhibitor Start: 5 take 1 tablet by mouth once daily Lisinopril 40 mg tablet Active 40 mg PO daily November 13, 2024 12:00am Start: 12-10-2015 End: 11-13-2024 take 1 tablet by mouth once daily Lisinopril 10 MG tablet Discontinued 10 mg PO DAILY December 10, 2015 12:00am November 13, 2024 9:46am melatonin 10 mg oral capsule (3 sources) Start: 11-13-2024 take 1 capsule by mouth at bedtime as needed Melatonin 10 mg capsule Active 10 mg PO BEDTIME as needed November 13, 2024 12:00am zolpidem tartrate 10 mg oral tablet (3 sources) gamma-Aminobutyr ic Acid-ergic Agonist Start: 11-13-2024 take 1 tablet by mouth at bedtime Zolpidem (Ambien) 10 mg tablet Active 10 mg PO AT BEDTIME November 13, 2024 12:00am Completed/Discontinued Medications Medication Drug Class(es) Dates Sig (Normalized) Sig (Original) acetaminophen 325 mg / oxyCODONE hydrochloride 5 mg oral tablet (7 sources) Opioid Agonist Start: 01-19-2019 End: 01-29-2019 Oxycodone-Acetamino phen 1 TABLET tablet Discontinued 1 {tbl} PO EVERY 6 HOURS NEEDED as needed for Pain 20 5 0 January 19, 2019 January 23, 2019 12:00am January 29, 2019 12:08am Closed fracture of shaft of clavicle Start: 01-19-2019 End: 01-29-2019 take 1 tablet by mouth every six hours as needed Oxycodone-Acetaminophen Discontinued 1 TABLET PO EVERY 6 HOURS NEEDED 20 5 January 19, 2019 January 29, 2019 12:08am docusate sodium 100 mg oral capsule (7 sources) Start: 01-19-2019 End: 06-10-2020 take 1 capsule by mouth once daily Docusate Sodium 100 MG capsule Discontinued 100 mg PO DAILY 20 0 January 19, 2019 12:00am June 10, 2020 11:00am Evolocumab (Repatha Sureclick) 140 mg/mL pen injector (3 sources) Start: 11-22-2024 End: 11-22-2024 Evolocumab (Repatha Sureclick) 140 mg/mL pen injector Discontinued 140 mg SC every 2 weeks 2 November 22, 2024 12:00am November 22, 2024 3:20pm Start: 11-22-2024 End: 11-22-2024 Evolocumab (Repatha Sureclic k) 140 mg/mL pen injector Discontinued 140 mg SC every 2 weeks November 22, 2024 12:00am November 22, 2024 3:20pm Start: 11-22-2024 Evolocumab (Re patha Sureclick) 140 mg/mL pen injector Active 140 mg SC every 2 weeks November 22, 2024 12:00am Problems Problem Classification Problem Date Documented Da te Episodic/Chronic Cancer of breast (1 source) Malignant neoplasm of unspecified site of left female breast; Translations: [Malignant neoplasm of unspecified site of left female breast] Onset: 03-18-2017 Chronic Disorders of lipid metabolism (8 sources) Hyperlipidemia; Translations: [Hyperlipidemia, unspecified] Onset: 11-22-2024 11-22-2024 Chronic Essential hypertension (7 sources) Hypertensive disorder; Translations: [Essential (primary) hypertension] Onset: 11-22-2024 11-22-2024 Chronic Neoplasms of unspecified nature or uncertain behavior (7 sources) Nodular tenosynovitis; Translations: [Neoplasm of uncertain behavior of connective and other soft tissue] 06-11-2020 Episodic Comment on above: 1.3 cm soft tissue m ass dorsum left long finger at proximal aspect proximal phalanx near the MP joint Other connective tissue disease (2 sources) Achilles tendinitis, right leg; Translations: [Achilles tendinitis, right leg] Onset: 02-12-2023 Episodic Other connective tissue disease (2 sources) Achilles tendinitis, left leg; Translations: [Achilles tendinitis, left leg] Onset: 02-12-2023 Episodic Residual codes; unclassified (6 sources) Family history of sudden cardiac ; Translations: [Family history of sudden cardiac ] 11-22-2024 Episodic Residual codes; unclassified (1 source) Family history of sudden cardiac ; Translations: [Family history of sudden cardiac ] Onset: 11-22-2024 Episodic Unclassified (3 sources) Encounter for screening mammogram for malignant neoplasm of breast; Translations: [Encounter for screening for osteoporosis] Onset: 03-18-2017 Episodic Results Test Name Value Interpretation Reference Range Facility Bone density reportOrdered B y: Luís Love on 01-03-2025 Study report Skeletal system DXA [facility] Imaging Services [address] [place] [address] [id number] Dexa Bone Density Study MR#: [id number] Acct: [id number] Name: VIKI NUNEZ Rep #: [id number] : 1950 F 74 From: Pretty Love MD PCP: Dr. Angelique Herrera MD Status: [facility] Study:Dexa Bone Density Study Date of Exam: 01/02/25 Exam# [id number] Ordering Dr: Anjel Adams NP FNPS-C PROCEDURE: DEXA BONE DENSITY STUDY 01/02/2025 REASON FOR EXAM: F, age 74 y/o . TECHNIQUE: DEXA BONE DENSITY STUDY COMPARISON: DEXA scan on 12/17/2022 FINDINGS: BMD and T-SCORES Lumbar spine: 0.697 g/cm2, T-score -3.2 Levels: L1 through L4 Change from prior: No significant change in BMD.. Left femoral neck: 0.525 g/cm2, T-score -2.9 Femoral neck comparison data not recommended for monitoring change. Prior T-score -3.5 Left total hip: 0.597 g/cm2, T-score -2.8 Change from prior: No significant change in BMD.. Right femoral neck: 0.503 g/cm2, T-score -3.1 Femoral neck comparison data not recommended for monitoring change. Prior T-score -3.0 Right total hip: 0.605 g/cm2, T-score -2.8 Change from prior: Statistically significant BMD decrease of 4.4%. The World Health Organization has defined the following categories based on bonedensity: Normal bone density: T-score equal to or greater than -1.0 Osteopenia: T-score between -1.0 and -2.5 Osteoporosis: T-score equal to or less than -2.5 BD/Dexa Bone Density Study IMPRESSION: OSTEOPOROSIS. Reading Location: [id number] CC: Anjel Adams; Dr. Angelique Herrera MD ~ Side Sawyer: Signed [facility] Breast imaging reportOrdered By: Adriana Cash on 01-02-2025 Study report [facility] Imaging Services [address] [place] [address] SCRN MAMM (CAD)W/HERBIE BILAT MR#: [id number] Acct: [id number] Name: VIKI NUNEZ Rep #: [id number] : 1950 F 74 From: Demario Mccauley MD PCP: Dr. Angelique Herrera MD Status: [facility] Study:SCRN MAMM (CAD)W/HERBIE BILAT Date of Exa m: 01/02/25 Exam# [id number] Ordering Dr: Anjel Adams NP FNPS-C EXAM: SCRN MAMM (CAD)W/HERBIE BILAT DATE: 01/02/2025 CLINICAL HISTORY: F, Age 74 y/o , SCREENING FOR BREAST CANCER TECHNIQUE: SCRN MAMM (CAD)W/HERBIE BILAT COMPARISON: Prior exam(s) were compared FINDINGS: TISSUE DENSITY: The breasts are heterogeneously dense, which may obscure small masses. Bilateral Breast Mammographic Findings: No significant masses, calcifications or other abnormalities are identified. BI/SCRN MAMM (CAD)W/HERBIE BILAT IMPRESSION: No mammographic evidence of malignancy in either breast. OVERALL FINAL ASSESSMENT BI-RADS 1: NEGATIVE. RECOMMEND ANNUAL MAMMOGRAPHIC SCREENING. RECOMMENDATION: Routine annual follow-up in 1 Year A letter with findings and recommendations will be mailed to the patient. Reading Location: [id number] CC: Anjel Adams; Dr. Angelique Herrera MD ~ Side Sawyer: Signed [facility] Dexa Bone Density Studyon Dexa Bone Density Study [facility] Imaging Services [address] [place] [address] Dexa Bone Density Study MR#: [id number] Acct: [id number] Name: VIKI NUNEZ Rep #: [id number] : 1950 F 74 From: Luís Love MD PCP: Dr. Angelique Herrera MD Status: REG CLI Study: Dexa Bone Density Study Date of Exam: 01/02/25 Exam# [id number] Ordering Dr: Anjel Adams NP, NP PROCEDURE: DEXA BONE DENSITY STUDY 01/02/2025 REASON FOR EXAM: F, age 74 y/o . TECHNIQUE: DEXA BONE DENSITY STUDY COMPARISON: DEXA scan on 12/17/2022 FINDINGS: BMD and T-SCORES Lumbar spine: 0.697 g/cm2, T-score -3.2 Levels: L1 through L4 Change from prior: No significant change in BMD.. Left femoral neck: 0.525 g/cm2, T-score -2.9 Femoral neck comparison data not recommended for monitoring change. Prior T-score -3.5 Left total hip: 0.597 g/cm2, T-score -2.8 Change from prior: No significant change in BMD.. Right femoral neck: 0.503 g/cm2, T-score -3.1 Femoral neck comparison data not recommended for monitoring change. Prior T-score -3.0 Right total hip: 0.605 g/cm2, T-score -2.8 Change from prior: Statistically significant BMD decrease of 4.4%. The World Health Organization has defined the following categories based on bone density: Normal bone density: T-score equal to or greater than -1.0 Osteopenia: T-score between -1.0 and -2.5 Osteoporosis: T-score equal to or less than -2.5 BD/Dexa Bone Density Study IMPRESSION: OSTEOPOROSIS. Reading Location: [id number] CC: Anjel RUTLEDGE NP-Melba Adams; Dr. Angelique Herrera MD Side Sawyer: Signed Normal [facility] SCRN MAMM (CAD)W/HERBIE BILATo n 01-02-2025 SCRN MAMM (CAD)W/HERBIE BILAT [facility] Imaging Services [address] [place] [address] SCRN MAMM (CAD)W/HERBIE BILAT MR#: [id number] Acct: [id number] Name: VIKI NUNEZ Rep #: [id number] : 1950 F 74 From: Adriana Jernigan i, MD PCP: Dr. Angelique Herrera MD Status: REG CLI Study: SCRN MAMM (CAD)W/HERBIE BILAT Date of Exam: 07/29 Exam# [id number] Ordering Dr: Anjel Adams NP FNPS -C EXAM: SCRN MAMM (CAD)W/HERBIE BILAT DATE: 01/02/2025 CLINICAL HISTORY: F, Age 74 y/o , SCREENING FOR BREAST CANCER TECHNIQUE: SCRN MAMM (CAD)W/HERBIE BILAT COMPARISON: Prior exam(s) were compared FINDINGS: TISSUE DENSITY: The breasts are heterogeneously dense, which may obscure small masses. Bilateral Breast Mammographic Findings: No significant masses, calcifications or other abnormalities are identified. BI/SCRN MAMM (CAD)W/HERBIE BILAT IMPRESSION: No mammographic evidence of malignancy in either breast. OVERALL FINAL ASSESSMENT BI-RADS 1: NEGATIVE. RECOMMEND ANNUAL MAMMOGRAPHIC SCREENING. RECOMMENDATION: Routine annual follow-up in 1 Year A letter with findings and recommendations will be mailed to the patient. Reading Location: [facility] CC: Anjel Adams; Dr. Angelique Herrera MD Side Sawyer: Signed Normal [facility] Calculated very low density lipoprotein (VLDL) cholesterol measurementOrdered By: Anjel Adams on 12-01-2024 Calculated very low density lipoprotein (VLDL) cholesterol measurement 21 mg/dL 5-40 [facility] Hemoglobin A1con 12-01-2024 HbA1c (Bld) [Mass fraction] 5.7 % Normal <=5.6 [facility] Comment on above: Order Comment: PER P T-JUST ORDER Order Date: 12/01/24 Order Info: [id number] - A1C Comments: screening diabetes Result Comment: Norm al < 5.7 % Prediabetic 5.7 - 6.4 % Diabetic >or= 6.5 % Please note range changes. Performed By: #### L 501.9945 #### [facility] [address] [place], [address] Hemoglobin A1c percentageOrd ered By: Anjel Adams on 12-01-2024 HbA1c (Bld) [Mass fraction] 5.7 % <5.7 [facility] Comment on above: Normal < 5.7 % Predi abetic 5.7 - 6.4 % Diabetic >or= 6.5 % Please note range changes. LDL calc ser/plasOrdered By: Anjel Adams on 12-01-2024 Cholesterol in LDL [Mass/Vol] 353 mg/dL [facility] Comment on above: Ptzscfnmgn=106-436 m g/dL & Higher Pprz=894 mg/dL or greater Lipid Profileon 12-01-2024 CHOL:HDL 8.04 Normal [facility] Comment on above: Order Comment: PER P T-JUST [facility] ORDER Order Date: 12/01/24 Order Info: [id number] - LIPID Comments: screening cholesterol Performed By: #### L 500.4100 #### [facility] [address] [place], [address] Cholesterol [Mass/Vol] 427 mg/dL High <=200 [facility] Comment on above: Order Comment: PER P T-JUST ORDER Order Date: 12/01/24 Order Info: [id number] - LIPID Comments: screening cholesterol Result Comment: Chol esterol level, Desirable <200 mg/dL Borderline high cholesterol 200-239 mg/dL High cholesterol >=240 mg/dL Recommendations of the NCEP Adult Treatment Panel for the following risk-cutoff thresholds for the [place] population. Performed By: #### L 500.4100 #### [facility] [address] [place], [address] Cholesterol in HDL [Mass/Vol] 53 mg/dL Normal [facility] Comment on above: Order Comment: PER P T-JUST ORDER Order Date: 12/01/24 Order Info: [id number] - LIPID Comments: screening cholesterol Result Comment: Lauren onal Cholesterol Education Program (NCEP) guidelines: <40 mg/dL: Low HDL-cholesterol (major risk factor for CHD) >= 60 mg/dL: High HDL-cholesterol (negative risk factor for CHD) HDL-cholesterol is affected by a number of factors, e.g. smoking, exercise, hormones, sex and age. Performed By: #### L 500.4100 #### [facility] [address] [place], [address] Cholesterol in LDL [Mass/Vol] 353 mg/dL Normal [facility] Comment on above: Order Comment: PER P T-JUST ORDER Order Date: 12/01/24 Order Info: [id number] - LIPID Comments: screening cholesterol Result Comment: Bord wcimft=313-318 mg/dL Higher Wdwa=480 mg/dL or greater Performed By: #### L 500.4100 #### [facility] [address] [place], [address] Cholesterol in VLDL [Mass/Vol] 21 mg/dL Normal 5-40 [facility] Comment on above: Order Comment: PER P T-JUST ORDER Order Date: 12/01/24 Order Info: [id number] - LIPID Comments: screening cholesterol Performed By: #### L 500.4100 #### [facility] [address] [place], [address] Triglyceride [Mass/Vol] 103 mg/dL Normal [facility] Comment on above: Order Comment: MARTINEZ Mejia IsauraROBERT ADAMS ORDER Order Date: 12/01/24 Order Info: [id number] - LIPID Comments: screening cholesterol Result Comment: The drugs N-Acetylcysteine and Metamizole may falsely depress this assay. Normal range: <150 mg/dL Borderline High: 150-199 mg/dL High: 200-499 mg/dL Very High: >500 mg/dL Performed By: #### L 500.4100 #### [facility] [address] [place], [place], [id number] Screening total cholesterol/ high density lipoprotein (HDL) cholesterol ratioOrdered By: Anjel Adams on 12-01-2024 Cholesterol.total/Chol esterol in HDL [Mass ratio] 8.04 {ratio} [facility] Serum or plasma cholesterol in HDL measurement (mass/volume)Ordered By: Anjel Adams on 12-01-2024 Cholesterol in HDL [Mass/Vol] 53 mg/dL >40 [facility] Comment on above: National Cholesterol Education Program (NCEP) guidelines:<40 mg/dL: Low HDL-cholesterol (major risk factor for CHD)>= 60 mg/dL: High HDL-cholesterol (negative risk factor for CHD)HDL-cholesterol is affected by a number of factors, e.g. smoking, exercise, hormones, sex and age. Serum or plasma cholesterol measurement (mass/volume)Ordered By: Anjel Adams on 12-01-2024 Cholesterol [Mass/Vol] 427 mg/dL High <201 [facility] Comment on above: Cholesterol level, D esirable <200 mg/dLBorderline high cholesterol 200-239 mg/dLHigh cholesterol >=240 mg/dLRecommendations of the NCEP Adult Treatment Panel for the following risk-cutoff thresholds for the [place] population. Triglycerides measurementOrd ered By: Anjel Adams on 12-01-2024 Triglyceride [Mass/Vol] 103 mg/dL <199 [facility] Comment on above: The drugs N-Acetylcy steine and Metamizole may falsely depress this assay. Normal range: <150 mg/dLBorderline High: 150-199 mg/dLHigh: 200-499 mg/dLVery High: >500 mg/dL 12 Lead EKG performed by [facility] on 11-22-2024 12 Lead EKG performed by [facility] [address] [place] [address] 12 Lead EKG performed by [facility] 11/22/24 1659 MR#: [id number] Acct: [id number] Name: VIKI NUNEZ Rep #: [id number] : 1950 74 From: Jw Camacho MD Attending Dr: Dr. Jw Camacho MD Status: DE P AMB Ordering Dr: Jw Camacho MD Date: 11/22/24 Location: [facility] Sex: F C Admitted: BMS/12 Lead EKG performed by [facility] ECG Report Interpretation --Sinus Rhythm WITHIN NORMAL LIMITSElectronically signed on 11/22/2024 at 12:[address] Jw Camacho [employer] Version [id number] 11/22/24 1207 Date Jw Camacho MD CC: Dr. Angelique Herrera MD Date Dictated: 11/22/241658 Date Transcribed: 11/22/241658 Side Sawyer: Signed Normal [facility] Cardiology Visit Reporton Cardiology Visit Report [facility] [address] [place] [address] OFFICE VISIT Date of Service: 11/22/24 MR#: [id number] Acct: [id number] Name: VIKI NUNEZ Rep #: [id number] : 1950 Provider: Dr. Jw hutchinson MD Age/Sex: 74/F Location: [facility] Status: Signed with Addenda ADDENDUM by Dr. Jw Camacho MD on 11/22/24 at 0910 HPI History of Present Illness Details: ECG in the office today shows sinus rhythm and is within normal limits. Assessment and Plan Assessment and Plan (1) Hyperlipidemia: Status: Acute Qualifiers: Hyperlipidemia type: pure hypercholesterolemia Qualified Code(s): E78.00 - Pure hypercholesterolemia, unspecified (2) Family history of sudden cardiac : Status: Acute (3) Hypertension: Status: Chronic Qualifiers: Hypertension type: primary hypertension Qualified Code(s): I10 - Essential (primary) hypertension Orders: Orders 12 Lead EKG performed by [facility] Today E78.5 - Hyperlipidemia, unspecified Lipid Profile 8 Weeks E78.5 - Hyperlipidemia, unspecified Liver Profile 8 Weeks E78.5 - Hyperlipidemia, unspecified Plan Details Follow Up: 1 Year (With Dr. Camacho and as needed) 11/22/24909 Date Jw Camacho MD cc: Dr. Angelique Herrera MD * Signed HPI HPI History of Present Illness Details: Patient is a 74-year-old white female is comes in today for a new patient visit. Patient reports that she is here because of a concern over her cardiovascular risk. The patient has had multiple family members that have suddenly of sudden cardiac related to ischemic heart disease she is the only living person in her immediate family that has not had a cardiac event. She has brothers and sisters both older and younger as well as her dad. The patient has failed multiple statins due to myalgias and brain fog. She actually tried to take him for several years but just could not tolerate the symptoms. The patient's lipids in November 2023 total cholesterol was 403 HDL 52 LDL 323 and triglycerides 141. There is not a documented diagnosis of familial hyperlipidemia in the family. The patient is very active she walks at least 2 miles every day and has had no change in her exercise tolerance in the past several months. The patient is not diabetic she is never smoked she does have hyperlipidemia and hypertension which is well-controlled. 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 Accompanied by: Self Is patient in pain?: No Allergies Njagmgc-LSM-TtF Reductase Inhibitor Adverse Reaction (Verified 11/22/24 08:30) myalgia Medications ???Medication ???Instructions ???Recorded ???Confirmed ???Type hydrochlorothiazide 25 mg tablet 25 mg PO DAILY 12/10/15 11/22/24 H istory aspirin 81 mg tablet,delayed 81 mg PO QDAY 11/13/24 11/22/24 Hi story release (Adult Low Dose Aspirin) glucosamine-chondroitin 250 mg-200 2 tab PO QDAY 11/13/24 11/22/24 History mg tablet (Osteo Bi-Flex) lisinopril 40 mg tablet 40 mg PO QDAY 11/13/24 11/22/24 Hi story melatonin 10 mg capsule 10 mg PO HS PRN 11/13/24 11/22/24 History zolpidem 10 mg tablet (Ambien) 10 mg PO QHS 11/13/24 11/22/24 His tory evolocumab 140 mg/mL subcutaneous 140 mg subcut Q2W #2 mL 11/22/24 Rx pen injector ([employer]) Have you fallen in the past year?: No PFSH Medical History Colon polyp Hyperlipidemia Hypertension Giant cell tumor of tendon sheath Hearing problem Breast cancer Breast lump Bone fracture Surgical History History of lumpectomy of left breast Family History Father , age 58 Hypertension CAD (coronary artery disease) Mother Diabetes Myocardial infarction Brother , age 62 CAD (coronary artery disease) Brother , age 64 CAD (coronary artery disease) Sister CAD (coronary artery disease) Sister Hx of CABG CAD (coronary artery disease) Brother Myocardial infarction Brother Myocardial infarction Social History Smoking Status: Never smoker alcohol intake: never substance use type: does not use additional social history: DOES TAKE ASPIRIN NEEDED DOES TAKE IBUPROFEN NEEDED ROS Const Const: Negative for fatigue or we (more content not included)... Normal [facility] PT D/C Summary (1)on 024 PT D/C Summary (1) [facility] Physical Therapy [facility] [address] [place] [address] / REHABILITATION SERVICES DISCHARGE SUMMARY MR#: [id number] Acct: [id number] Name: VIKI NUNEZ Rep #: [id number] : 1950 74 From: Jason Jurado PT, Cert. T, OCS Referring Dr.: Dr. Angelique Herrera MD Status: RE G RCR Insurance: MEDICARE PART A B [employer] [facility] Discharge Summary D/C summary: It has been my pleasure to treat VIKI NUNEZ referred by Dr. Angelique Herrera MD, with the diagnosis of RIGHT ROTATOR CUFF TENDONITIS for a total of 8 visit(s). Discharge Date: Please see the following information for a summary of their discharge status. Subjective Subjective: Feels stronger ,but conts to have Pain Right Shoulder: Pain Intensity (Out of 10): 5 Objective Objective/Function: POSTURE: mild forward posture NEURO: denies paresthesia/tingling ,reflexes intact PALAPTION: unremarkable AROM: shoulder flexion 90 degrees pain ,abduction 80 degrees pain ,ER 70 degrees pain ,IR L1 MMT: ( peak force) infraspinatus 10.7 ,supraspinatus 3.7 ,deltoid 4.9 ,subscapularis 13.2 Goals Goal 1:: I with HEP for shoulder Goal 2:: Patient to improve AROM shoulder flexion/abduction by 140 degrees to improve function with ADLS Goal 3:: Patient to improve peak force RTC and deltoid by 5-10 # to improve function and ADLS Goal 4:: Patient to improve quick dash by 5 points to improve QOL and function Goal 5:: Patient to demonstrate 50% improvement with less pain and improved function. Plan Plan: RTD NO PROGRESS PAINFUL WEAK AND DECREASE LAILA POSSIBLE NEEDING MRI D/C Information d/c sentence: If there are questions or concerns regarding this patient's physical therapy, please feel free to call me at [phone]. Thank you for the referral of this patient. Sincerely, Jason Jurado, PT, Cert T, OCS Balance/Gait/Functional tests Balance/Special Test Scores Quick DASH Score: 63.6350 06/07/24 1455 CC: Dr. Angelique Herrera MD FLAQUITA Signed Normal [facility] 12 Lead EKGon 03-02-2024 12 Lead EKG [facility] Cardiovascular Services [address] [place] [address] 12 Lead EKG 03/02/24 1347 MR#: [id number] Acct: [id number] Name: VIKI NUNEZ Rep #: [id number] : 1950 73 From: Jw Camacho MD Attending Dr: DAMEON Chapin Status: REG CLI Ordering Dr: Rosalba Andino Date: 03/02/24 Location: [facility] Sex: F C Admitted: Test Reason : PRE OP Blood Pressure : / mmHG Vent. Rate : 069 BPM Atrial Rate : 069 BPM P-R Int : 184 ms QRS Dur : 072 ms QT Int : 402 ms P-R-T Axes : 083 081 058 degrees QTc Int : 430 ms Normal sinus rhythm Normal ECG Confirmed by Jw Camacho ([id number]), film and video editor CHRIS TOLEDO ([id number]) on 03/03/2024 6:31:31 AM Referred By: Rosalba Andino Confirmed By:Jw Camacho 03/03/24 0631 Date Jw Camacho MD CC: Dr. Angelique Herrera MD; DAMEON Chapin Signed Normal [facility] Basic Metabolic Profile (BMP )on 03-02-2024 BUN/CRE 26.6 RATIO High 10-20 [facility] Comment on above: Performed By: #### L 500.2500, L100.0100 #### [facility] Laboratory [address] [place], [address] CA,Total 9.4 mg/dL Normal 8.5-10.1 [facility] Comment on above: Performed By: #### L 500.2500, L100.0100 #### [facility] Laboratory [address] [place], [address] Chloride [Moles/Vol] 103 mmol/L Normal 98-107 [facility] Comment on above: Performed By: #### L 500.2500, L100.0100 #### [facility] Laboratory [address] [place], [address] CO2 [Moles/Vol] 28.0 mmol/L Normal 21.0-32.0 [facility] Comment on above: Performed By: #### L 500.2500, L100.0100 #### [facility] Laboratory [address] [place], [address] Creatinine [Mass/Vol] 0.75 mg/dL Normal 0.55-1.02 [facility] Comment on above: Result Comment: The validity of the calculated GFR GFRAA in patients over 70 years has not been determined. Clinical correlation is essential. Performed By: #### L 500.2500, L100.0100 #### [facility] [address] [place], [address] EST GFR - AA 97 mL/min Normal >60 [facility] Comment on above: Result Comment: Afri can [place]i GFR Calc Performed By: #### L 500.2500, L100.0100 #### [facility] Laboratory [address] [place], [address] GAP 7 Normal 5-15 [facility] Comment on above: Performed By: #### L 500.2500, L100.0100 #### [facility] [address] [place], [address] GFR/1.73 sq M.predicted among non-blacks MDRD (S/P/Bld) [Vol rate/Area] 80 mL/min/{1.73_m2} Normal >60 [facility] Comment on above: Result Comment: Non- GFR Calc Performed By: #### L 500.2500, L100.0100 #### [facility] Laboratory [address] [place], [address] Glucose [Mass/Vol] 93 mg/dL Normal 74-106 [facility] Comment on above: Performed By: #### L 500.2500, L100.0100 #### [facility] [address] [place], [address] Potassium [Moles/Vol] 4.0 mmol/L Normal 3.5-5.1 [facility] Comment on above: Performed By: #### L 500.2500, L100.0100 #### [facility] [address] [place], [address] Sodium [Moles/Vol] 138 mmol/L Normal 136-145 [facility] Comment on above: Performed By: #### L 500.2500, L100.0100 #### [facility] [address] [place], [address] Urea nitrogen [Mass/Vol] 20 mg/dL High 7-18 [facility] Comment on above: Performed By: #### L 500.2500, L100.0100 #### [facility] [address] [place], [address] CBC W/Diff, Automatedon 08-2 Absolute Lymph 1.91 X10 3/uL Normal 0.83-4.51 [facility] Comment on above: Performed By: #### L 500.2500, L100.0100 #### [facility] Laboratory [address] [place], [address] Absolute Neut 3.7 X10 3/uL Normal 2.0-7.7 [facility] Comment on above: Performed By: #### L 500.2500, L100.0100 #### [facility] [address] [place], [address] Basophils/100 WBC (Bld) 0.8 % Normal 0-1 [facility] Comment on above: Performed By: #### L 500.2500, L100.0100 #### [facility] [address] [place], [address] Eosinophils/100 WBC (Bld) 4.7 % Normal 0-5 [facility] Comment on above: Performed By: #### L 500.2500, L100.0100 #### [facility] [address] [place], [address] Erythrocyte distribution width (RBC) [Ratio] 12.1 % Normal 11.6-14.6 [facility] Comment on above: Performed By: #### L 500.2500, L100.0100 #### [facility] [address] [place], [address] Hematocrit (Bld) [Volume fraction] 36.7 % Low 37-47 [facility] Comment on above: Performed By: #### L 500.2500, L100.0100 #### [facility] [address] [place], [address] Hemoglobin (Bld) [Mass/Vol] 12.2 g/dL Normal 12.0-15.0 [facility] Comment on above: Performed By: #### L 500.2500, L100.0100 #### [facility] [address] [place], [address] IG% 0.200 Normal 0.0-0.9 [facility] Comment on above: Result Comment: IG% - Immature Granulocytes (promyelocytes, myelocytes and metamyelocytes) > 1% indicates that a LEFT SHIFT is Present. Performed By: #### L 500.2500, L100.0100 #### [facility] Laboratory [address] [place], [address] Lymphocytes/100 WBC (Bld) 29.9 % Normal 19-41 [facility] Comment on above: Performed By: #### L 500.2500, L100.0100 #### [facility] [address] [place], [address] MCH (RBC) [Entitic mass] 30.6 pg Normal 27.0-32.0 [facility] Comment on above: Performed By: #### L 500.2500, L100.0100 #### [facility] [address] [place], [address] MCHC (RBC) [Mass/Vol] 33.2 g/dL Normal 32-36 [facility] Comment on above: Performed By: #### L 500.2500, L100.0100 #### [facility] [address] [place], [address] MCV (RBC) [Entitic vol] 92.0 fL Normal 81-99 [facility] Comment on above: Performed By: #### L 500.2500, L100.0100 #### [facility] [address] [place] [place], [address] Monocytes/100 WBC (Bld) 7.0 % Normal 0-10 [facility] Comment on above: Performed By: #### L 500.2500, L100.0100 #### [facility] [address] [place], [address] Neutrophils/100 WBC (Bld) 57.4 % Normal 47-70 [facility] Comment on above: Performed By: #### L 500.2500, L100.0100 #### [facility] [address] [place], [address] Nucleated RBC (Bld) [#/Vol] 0 10*3/uL Normal 0-5 [facility] Comment on above: Performed By: #### L 500.2500, L100.0100 #### [facility] [address] [place], [address] Platelet mean volume (Bld) [Entitic vol] 9.0 fL Normal 6.2-12.0 [facility] Comment on above: Performed By: #### L 500.2500, L100.0100 #### [facility] Laboratory [address] [place], [address] Platelets (Bld) [#/Vol] 292 10*3/uL Normal 150-450 [facility] Comment on above: Performed By: #### L 500.2500, L100.0100 #### [facility] [address] [place], [address] RBC (Bld) [#/Vol] 3.99 10*6/uL Low 4.2-5.4 [facility] Comment on above: Performed By: #### L 500.2500, L100.0100 #### [facility] [address] [place], [address] RDW SD 40.6 fl Normal 35.1-43.9 [facility] Comment on above: Performed By: #### L 500.2500, L100.0100 #### [facility] [address] [place], [address] WBC (Bld) [#/Vol] 6.4 10*3/uL Normal 4.4-11.0 [facility] Comment on above: Performed By: #### L 500.2500, L100.0100 #### [facility] [address] [place], [address] Culture, urineOrdered By: Dameon Rowe on 03-03-2023 Bacteria identified Cx Nom (U) Presumptive E. coli [facility] Office Visiton 02-12-2023 Follow-up visit [id number] Quentin Nunez 1950 F Date Provider Department Center 02/12/2023 20191-VVBJHELGRODOLFO NAVARRETE [facility] None No family history on file Level of Service:25464 PA OFFICE/OUTPATIENT NEW LOW MDM 30-44 MINUTES Reason for Visit and Comments: New Patient [542] - Left Achilles Tendinitis Normal [facility] PATINSon 08-11-2023 PATINS Achilles Tendon: Eccentric Exercises Range of Motion: Static Stretch Stand about 2 feet from a wall, and place your hands on the wall at about shoulder height. Or you can stand behind a chair, placing your hands on the back of it for balance. Step back with the leg you want to stretch. Keep the knee straight, and press your heel into the floor with your toe turned slightly in. Lean forward, and bend your other leg slightly. Feel the stretch in the Achilles tendon of your back leg. Hold for 60 seconds. Repeat 2 to 4 times a session, up to 5 sessions a day. Repeat steps 1 to 3 stretching with your back leg knee bent. Do both legs. Eccentric Achilles Stand with the balls of both feet on the edge of a step or curb (or a medium-sized phone book). With at least one hand, hold onto something solid for balance, such as a banister or handrail. Keeping both legs straight, slowly push all the way up onto your toes. On one foot, slowly lower yourself as low as possible without loosing balance or control. Take about 5-6 seconds to lower yourself. Hold this position for at least 5 to 10 seconds. Reposition your other foot on the step. Slowly raise yourself back to the starting position with BOTH feet. Repeat steps 3 to 6. Repeat 2-15 times a session, up to 5 times a day. Repeat with your knees bent. Progression Start on the progression listed below where you feel comfortable. When the last three reps are perfect form, then increase one step. When you add a set, don't add to the total reps. Repetitions Sets 4 2 6 2 8 2 10 2 12 2 15 2 10 3 12 3 15 3 Normal [facility] Progress Noteon 02-12-2023 Progress Note [facility] [address] [place] [address] Dept: [phone] Dept Chief Complaint Patient presents with New Patient Left Achilles Tendinitis Subjective History of Present Illness: Viki Nunez is a 72 y.o. female who presents today for evaluation of left ankle pain. Hx of Herniated disc with nerve pain and sharp pain from low back down legs. Location: posterior Onset: 3 years, chronic, Flare up over the last 4-5 weeks Injury: no Quality: aching, throbbing, tight/stiff, and sharp Mechanical symptoms: grinding and instability Radiation of symptoms: no Severity: 0/10 at rest and 4/10 at worst Exacerbating factor(s): repetitive use, direct pressure, walking, and prolonged standing Relieving factor(s): rest and heat Timing: intermittently Imaging to date: uploaded from disc Treatment to date: PT/OT/HEP: yes, physician directed exercise plan for 3 years. 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 Respiratory: Breathing comfortably on room air. No respiratory distress. Skin: Warm, dry, intact. No visible rashes or erythema overlying area of focused exam. Physical Exam Musculoskeletal: Right ankle: Swelling and deformity (Diffuse significant irregular swelling across the Achilles tendon.) present. Tenderness present. Normal range of motion. Right Achilles Tendon: Tenderness present. No defects. Mcmahon's test negative. Left ankle: Swelling and deformity (Diffuse significant irregular swelling across the Achilles tendon.) present. Tenderness present. Normal range of motion. Left Achilles Tendon: Tenderness present. No defects. Mcmahon's test negative. External Notes None available Labs No results found for: HGBA1C No results found for: CREATININE Imaging Images reviewed with patient today I have personally reviewed the images pertinent to the appointment today EMG/NCT N/A Procedure No procedures completed today Assessment Diagnosis Plan 1. Achilles tendinitis of both lower extremities Plan -Discussed with the patient the nature of Achilles tendinopathy. -Discussed options for activity modification. -Discussed possible treatment modalities including nothing, PT including eccentrics, as well as other topics, we discussed the chronicity of Achilles swelling even if symptoms entirely resolved.. -Discussed home exercises for Achilles and how to do them, eccentric nature. -Questions answered. -Written patient information provided in the AVS. - Will prescribe PT at home on their own with exercises given.. No follow-ups on file. Rodolfo Navarrete MD 02/12/2023 2:22 PM Please note that portions of this note may have been completed with voice recognition software. Documentation reviewed prior to signing but minor errors in real estate processor may have occurred. Normal [facility] Basophil percentageOrdered B y: Dr. Herrera on 11-23-2022 Chloride [Moles/Vol] 106 mmol/L 98-107 [facility] Cholesterol [Mass/Vol] 380 mg/dL <200 [facility] Comment on above: <200 mg/dL Desirable 200-240 mg/dL Borderline >240 mg/dL High Risk Glucose [Mass/Vol] 105 mg/dL 74-106 [facility] Comment on above: Fasting Glucose resu lt from 100 to 125 mg/dL suggests IMPAIRED HOMEOSTASIS per A.D.A. criteria. Potassium [Moles/Vol] 3.9 mmol/L 3.5-5.1 [facility] Sodium [Moles/Vol] 141 mmol/L 136-145 [facility] Triglyceride [Mass/Vol] 96 mg/dL <199 [facility] Comment on above: The drugs N-Acetylcy steine and Metamizole may falsely depress this assay.Serum Triglycerides Reference Interval Normal <150 mg/dL Borderline high 150 - 199 mg/dL High 200 - 499 mg/dL Very High > or = 500 mg/dL Laboratory - Chemistry and C hemistry - challengeOrdered By: Dr. Herrera on 11-23-2022 ALT [Catalytic activity/Vol] 31 U/L 13-56 [facility] CO2 [Moles/Vol] 27.0 mmol/L 21.0-32.0 [facility] Urea nitrogen/Creatinine [Mass ratio] 34.4 mg/mg 10-20 [facility] No Panel InformationOrdered By: Dr. Herrera on 11-23-2022 Estimated GFR (MDRD) Amer 106 mL/min >60 [facility] Comment on above: GFR Calc Estimated GFR (MDRD) Non-Af Amer 88 mL/min >60 [facility] Comment on above: Non- GFR Calc Serum or plasma calcium og urement (mass/volume)Ordered By: Dr. Herrera on 11-23-2022 Calcium [Mass/Vol] 9.3 mg/dL 8.5-10.1 [facility] Serum or plasma cholesterol in HDL measurement (mass/volume)Ordered By: Dr. Herrera on 11-23-2022 Cholesterol in HDL [Mass/Vol] 56 mg/dL >40 [facility] Comment on above: The drugs N-Acetylcy steine and Metamizole may falsely depress this assay. Reference Range HDL <40 mg/dL Low HDL Cholesterol HDL >or= 60 mg/dL High HDL Cholesterol Serum or plasma cholesterol in VLDL measurement (mass/volume)Ordered By: Dr. Herrera on 11-23-2022 Cholesterol in VLDL [Mass/Vol] 19 mg/dL 5-40 [facility] Serum or plasma creatinine m easurement (mass/volume)Ordered By: Dr. Herrera on 11-23-2022 Creatinine [Mass/Vol] 0.70 mg/dL 0.55-1.02 [facility] Comment on above: The validity of the calculated GFR & GFRAA in patients over 70 years has not been determined. Clinical correlation is essential. Serum or plasma low density lipoprotein (LDL) cholesterol measurement (mass/volume)Ordered By: Dr. Herrera on 11-23-2022 Cholesterol in LDL [Mass/Vol] 305 mg/dL 0-130 [facility] Serum or plasma urea nitroge n measurement (mass/volume)Ordered By: Dr. Herrera on 11-23-2022 Urea nitrogen [Mass/Vol] 24 mg/dL 7-18 [facility] Thin prep Papanicolaou smear with manual screeningOrdered By: Dr. Herrera on 11-23-2022 Thin prep Papanicolaou smear with manual screening 17 U/L 15-37 [facility] Thin prep Papanicolaou smear with manual screening 8 5-15 [facility] Basophil percentageon 2021 Chloride [Moles/Vol] 106 mmol/L 98-107 [facility] Work Phone: Cholesterol [Mass/Vol] 392 mg/dL <200 [facility] Work Phone: Comment on above: <200 mg/dL Desirable 200-240 mg/dL Borderline >240 mg/dL High Risk Glucose [Mass/Vol] 89 mg/dL 74-106 [facility] Work Phone: Potassium [Moles/Vol] 4.1 mmol/L 3.5-5.1 [facility] Work Phone: [phone] Sodium [Moles/Vol] 140 mmol/L 136-145 [facility] Work Phone: [phone] Triglyceride [Mass/Vol] 119 mg/dL [facility] Work Phone: [phone] Comment on above: The drugs N-Acetylcy steine and Metamizole may falsely depress this assay.Serum Triglycerides Reference Interval Normal <150 mg/dL Borderline high 150 - 199 mg/dL High 200 - 499 mg/dL Very High > or = 500 mg/dL Laboratory - Chemistry and C hemistry - challengeon 11-10-2021 CO2 [Moles/Vol] 27.0 mmol/L 21.0-32.0 [facility] Work Phone: Urea nitrogen/Creatinine [Mass ratio] 23.9 mg/mg 10-20 [facility] Work Phone: No Panel Informationon 11-10 Estimated GFR (MDRD) Amer 97 mL/min >60 [facility] Work Phone: Comment on above: GFR Calc Estimated GFR (MDRD) Non-Af Amer 81 mL/min >60 [facility] Work Phone: Comment on above: Non- GFR Calc Serum or plasma calcium og urement (mass/volume)on 11-10-2021 Calcium [Mass/Vol] 9.8 mg/dL 8.5-10.1 [facility] Work Phone: [phone] Serum or plasma cholesterol in HDL measurement (mass/volume)on 11-10-2021 Cholesterol in HDL [Mass/Vol] 55 mg/dL [facility] Work Phone: [phone] Comment on above: The drugs N-Acetylcy steine and Metamizole may falsely depress this assay. Reference Range HDL <40 mg/dL Low HDL Cholesterol HDL >or= 60 mg/dL High HDL Cholesterol Serum or plasma cholesterol in VLDL measurement (mass/volume)on 11-10-2021 Cholesterol in VLDL [Mass/Vol] 24 mg/dL 5-40 [facility] Work Phone: Serum or plasma creatinine m easurement (mass/volume)on 11-10-2021 Creatinine [Mass/Vol] 0.75 mg/dL 0.55-1.02 [facility] Work Phone: Comment on above: The validity of the calculated GFR & GFRAA in patients over 70 years has not been determined. Clinical correlation is essential. Serum or plasma low density lipoprotein (LDL) cholesterol measurement (mass/volume)on 11-10-2021 Cholesterol in LDL [Mass/Vol] 313 mg/dL 0-130 [facility] Work Phone: Serum or plasma urea nitroge n measurement (mass/volume)on 11-10-2021 Urea nitrogen [Mass/Vol] 18 mg/dL 7-18 [facility] Work Phone: Thin prep Papanicolaou smear with manual screeningon 11-10-2021 Thin prep Papanicolaou smear with manual screening 7 5-15 [facility] Work Phone: CNCOon 03-18-2017 [facility] HNO ID: [id number]: Mammography CoordinatorService: (none)Author Type: PhysicianType: LetterFiled: 03/22/2017 11:32 PMNote Text:March 18, 2017 PID: [id number] [address] [place] [address] [place], [place] [address]Wpnq Ms. Nunez,We are pleased to inform you that the results of your recent breastimaging exam on 03/18/2017 are normal. Early detection of cancer is veryimportant. We also understand recommendations regarding breast cancerscreening are controversial. Please discuss with your primary careprovider which strategy is best for you and whether a mammogram is rightfor you.Your imaging studies and report will be kept on file at [facility] part of your permanent medical record and are available for yourcontinuing care.Thank you for allowing us to help in meeting your health care needs.Sincerely,Dr. Drummondpreerasmo RadiologistWooster Specialty Center (Normal over 40) Normal [facility] CAR SCREENINGon 03-18-2017 CRA SCREENING * * *Final Report* * *DATE OF EXAM: Mar 18 2017 8:52AM [facility] - [facility] SCREENING / REASON: multiple diagnoses * * * * Physician Interpretation * * * *RESULT: #[id number] - [facility] SCREENINGBILATERAL DIGITAL SCREENING MAMMOGRAM WITH CAD: 03/18/2017HISTORY: Screening Mammogram - patient reports NO breast symptoms /priors available for comparison.RESULT:TECHNI QUE: The study was acquired using full field digital technology and interpreted from soft copy.Current study was also evaluated with a Computer Aided Detection (CAD).Comparison is made to exams dated: 03/04/2016 mammogram, 02/27/2015 mammogram, and 02/20/2014 mammogram - [facility].There are scattered fibroglandular elements in both breasts.There are post operative findings in the left breast.No significant masses, calcifications, or other findings are seen in either breast.There has been no significant interval change.IMPRESSION: NEGATIVEThere is no mammographic evidence of malignancy.A 1 year screening mammogram is recommended. The exam was reviewed by a staff physician.Krystal Denis M.D.ch,bb/penrad:03/18/20 17 10:01:18Imaging Technologist: Anjelica RIVERA)(Darrell), [facility]: Normal over 40Mammogram BI-RADS: 1 NegativeTranscriptionist : JujuTranselizabet Date/Time: Mar 18 2017 8:52ADictated by: JACIEL DENIS MDThis examination was interpreted and the report reviewed and electronically signed by: KRYSTAL SANCHEZ MD on Mar 18 2017 10:01AM EST Normal [facility] PROGRESSon 03-18-2017 PROGRESS HNO ID: [id number]: Angélica Sheppard RtService: (none)Author Type: (none)Type: Progress NotesFiled: 03/18/2017 8:54 AMNote Text: Radiology Service Progress NotePATIENT NAME: Viki NunezMRN: [id number] OF SERVICE: March 18, 2017TIME: 8:30 AMPATIENT IDENTITY VERIFICATION COMPLETED USING TWO (2) METHODS: Patientconfirmed name verbally and Date of .PATIENT GENDER DATA: Female. status: : NoBreastfeeding status: NO.PATIENT RELEVANT IMPLANT DATA REVIEWED: Not ApplicableRADIOLOGY DEPARTMENT: Women's Health abbi scr mammogramPERIPHERAL IV DATA: Not applicableSIGNED BY: Angélica Sheppard RtSeptember 2016 8:30 AM Normal [facility] Vital Signs Date Time Vital Sign Value Performing Clinician Jimbo moeller 11-22-2024 08:30-0400 Body height 154.[address] Angelique Herrera MD Work Phone: [facility] 11-22-2024 08:30-0400 Body mass index (BMI) [Ratio] 23.8 kg/m2 Dr. Angelique Herrera MD Work Phone: [facility] 11-22-2024 08:30-0400 Body weight 57.[address] Angelique Herrera MD Work Phone: [facility] 11-22-2024 08:30-0400 Diastolic blood pressure 65 mm[Hg] Dr. Angelique Herrera MD Work Phone: [facility] 11-22-2024 08:30-0400 Heart rate 73 /min Dr. Angelique Herrera MD Work Phone: [facility] 11-22-2024 08:30-0400 Respiratory rate 18 /min Dr. Angelique Herrera MD Work Phone: [facility] 11-22-2024 08:30-0400 SaO2% (BldA) [Mass fraction] 97 % Dr. Angelique Herrera MD Work Phone: [facility] 11-22-2024 08:30-0400 Systolic blood pressure 115 mm[Hg] Dr. Angelique Herrera MD Work Phone: [facility] 12-17-2022 14:23-0400 Body height 154.94 cm [facility] Encounters Encounter Date Encounter Type Care Provider Facility Start: 01-02-2025 End: 01-02-[address] Angelique Herrera MD Work Phone: -[facility] Start: 01-02-2025 End: 01-02-2025 Patient encounter procedure Anjel Angie FNPS-C -Outpatient Bone Densitometry Work Phone: Start: 01-02-2025 End: 01-02-2025 ambulatory Angelique Herrera Facility:[facility] Start: 12-01-2024 End: 12-01-[address] Angelique Herrera MD Work Phone: [facility] Work Phone: Start: 12-01-2024 End: 12-01-[address] [facility] Start: 12-01-2024 End: 12-01-2024 ambulatory Angelique Herrera Facility:[facility] Start: 11-22-2024 End: 11-22-[address] Jw Camacho MD -[facility] Work Phone: Start: 11-22-2024 End: 11-22-[address] Angelique Herrera MD Work Phone: [facility] Work Phone: Start: 03-14-2024 Encounter for preprocedural cardiovascular examination Rosalba Andino [facility] Start: 03-02-2024 End: 03-02-2024 ambulatory Jw Camacho Facility:[facility] Start: 03-02-2024 End: 03-02-2024 ambulatory Angelique Herrera Facility:[facility] Start: 01-21-2024 End: 01-21-2024 ambulatory Angelique Herrera Facility:[facility] Start: 03-03-2023 End: 03-03-2023 ambulatory [facility] Work Phone: Start: 03-03-2023 End: 03-03-2023 Patient encounter procedure [facility]-Laboratory, Specimen Work Phone: Start: 02-12-2023 End: 02-12-2023 ambulatory [facility] Start: 02-09-2023 End: 02-09-2023 ambulatory [facility] Work Phone: Start: 02-09-2023 End: 02-09-2023 Discharged Recurring [facility]-Physical Therapy Work Phone: Start: 12-22-2022 Registered Recurring [facility]-Physical Therapy Start: 12-17-2022 End: 12-17-2022 ambulatory [facility] Work Phone: Start: 12-17-2022 End: 12-17-2022 Patient encounter procedure [facility]-Outpatient Breast Imaging Start: 12-08-2022 End: 12-08-2022 [facility] Start: 11-23-2022 End: 11-23-2022 [facility] Start: 11-10-2021 End: 11-10-2021 [facility] Start: 03-18-2017 End: 03-18-2017 Ambulatory TAD (NATHALIE) [facility] Procedures Date Procedure Procedure Detail Performing Clinician Start: 01-02-2025 Dual energy X-ray absorptiometry Dr. Angelique Herrera MD Work Phone: Start: 01-02-2025 Screening mammography Minerva Herrera MD Work Phone: Start: 11-22-2024 Evaluation of diagno stic study results Dr. Angelique Herrera MD Work Phone: Start: 03-03-2023 Bacteria identified in Urine by Culture Start: 03-03-2023 Urine culture Start: 12-17-2022 Dual energy X-ray absorptiometry Start: 12-17-2022 Screening mammography Start: 12-08-2022 Plain X-ray of bilat eral sacroiliac joints Plan of Treatment Date Care Activity Detail Author Start: 11-22-2024 Evaluation of diagnostic study results 12 Lead EKG performed by [facility] Hepatic function panel [facility] Lipid 1996 panel - Serum or Plasma [facility] Payers Date Payer Category Payer Self-pay [id number] 2015 Medicare [id number] [id number] 2015 Unknown [id number] Unknown [id number] 2.16.8 [id number] Unknown [id number] 2.16.8 [id number] Unknown [id number] 2.16.8 [id number] Unknown [id number] 2.16.8 [id number] Unknown [id number] 2.16.8 [id number] Unknown [id number] 2.16.8 [id number] Social History Date Type Detail Facility [facility] Start: 1950 Sex Assigned At Female [facility] Start: 06-11-2020 [facility] Evaluation note 11-22-2024 Note Date & Type Note Facility 11-22-2024 Evaluation note Diagnosis Onset Date Resolution Family history of sudden cardiac acute November 22, 2024 8:26am Hyperlipidemia acute November 22, 2024 8:26am Hypertension chronic November 22 8:26am [facility] Work Phone: Progress note 11-22-2024 Note Date & Type Note Facility 11-22-2024 Progress note [facility] Progress note 11-22-2024 Note Date & Type Note Facility 11-22-2024 Progress note Note Date/Time November 22, 2024 9:10am [facility] [address] [place] [address] [address] [place], [place] [address] OFFICE VISIT Date of Service: 11/22/24 MR#: [id number] Acct: [id number] Name: ENRIQUEVIKI Zandra Rep #: [id number] : 1950 Provider: Dr. Don Camacho MD Age/Sex: 74/F Location: [facility] Status: Signed with Addenda ADDENDUM by Dr. Jw aCmacho MD on 11/22/24 at 0910 HPI History of Present Illness Details: ECG in the office today shows sinus rhythm and is within normal limits. Assessment and Plan Assessment and Plan (1) Hyperlipidemia: Status: Acute Qualifiers: Hyperlipidemia type: pure hypercholesterolemia Qualified Code(s): E78.00 - Pure hypercholesterolemia, unspecified (2) Family history of sudden cardiac : Status: Acute (3) Hypertension: Status: Chronic Qualifiers: Hypertension type: primary hypertension Qualified Code(s): I10 - Essential (primary) hypertension Orders: Orders 12 Lead EKG performed by [facility] Today E78.5 - Hyperlipidemia, unspecified Lipid Profile 8 Weeks E78.5 - Hyperlipidemia, unspecified Liver Profile 8 Weeks E78.5 - Hyperlipidemia, unspecified Plan Details Follow Up: 1 Year (With Dr. Camacho and as needed) 11/22/24 0910 <Electronically signed by Jw saavedra MD> Date _ Jw Camacho MD cc: Dr. Angelique Herrera MD ~* Signed HPI HPI History of Present Illness Details: Patient is a 74-year-old white female is comes in today for a new patient visit. Patient reports that she is here because of a concern over her cardiovascular risk. The patient has had multiple family members that have suddenly of sudden cardiac related to ischemic heart disease she is the only living person in her immediate family that has not had a cardiac event. She has brothers and sisters both older and younger as well as her dad. The patient has failed multiple statins due to myalgias and brain fog. She actually tried to take him for several years but just could not tolerate the symptoms. The patient's lipids in November 2023 total cholesterol was 403 HDL 52 [id number] and triglycerides 141. There is not a documented diagnosis of familial hyperlipidemia in the family. The patient is very active she walks at least 2 miles every day and has had no change in her exercise tolerance in the past several months. The patient is not diabetic she is never smoked she does have hyperlipidemia andhypertension which is well-controlled. 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 Accompanied by: Self Is patient in pain?: No Allergies Wzhbezr-NII-HjV Reductase Inhibitor Adverse Reaction (Verified 11/22/24 08:30) myalgia Medications ?Medication ?Instructions ?Recorded ?Confirmed ?Type hydrochlorothiazide 25 mg tablet 25 mg PO DAILY 11/22/24 History aspirin 81 mg tablet,delayed 81 mg PO QDAY 11/13/24 History release (Adult Low Dose Aspirin) glucosamine-chondroitin 250 mg-200 2 tab PO QDAY 11/1311/22/24 History mg tablet (Osteo Bi-Flex) lisinopril 40 mg tablet 40 mg PO QDAY 11/13/2411/22 History melatonin 10 mg capsule 10 mg PO HS PRN 11/13/24 History zolpidem 10 mg tablet (Ambien) 10 mg PO QHS 11/13/24 0 11/22/24 History evolocumab 140 mg/mL subcutaneous 140 mg subcut Q2W #2 mL 11/22/24 Rx pen injector (Reprica Eugenioick) Have you fallen in the past year?: No PFSH Medical History Colon polyp Hyperlipidemia Hypertension Giant cell tumor of tendon sheath Hearing problem Breast cancer Breast lump Bone fracture Surgical History History of lumpectomy of left breast Family History Father , age 58 Hypertension CAD (coronary artery disease) Mother Diabetes Myocardial infarction Brother , age 62 CAD (coronary artery disease) Brother , age 64 CAD (coronary artery disease) Sister CAD (coronary artery disease) Sister Hx of CABG CAD (coronary artery disease) Brother Myocardial infarction Brother Myocardial infarction Social History Smoking Status: Never smoker alcohol intake: never substance use type: does not use additional social history: DOES TAKE ASPIRIN NEEDED DOES TAKE IBUPROFEN NEEDED ROS Const Const: Negative for fatigue or weakness ENT ENT: Negative for dizziness or balance problems Cardio Chest Pain: No Palpitations: Yes Edema: None Muscle aches with walking: None Resp Respiratory: Negative for SOB with activity, SOB at rest or SOB orthopneaundefinedSOB lying down GI GI: Negative nausea, vomiting or heartburn Musc Musc: Negative for muscle weakness or balance problems Neuro Neuro: Negative for dizziness, lightheadedness, near syncope, syncope or weakness Endo Endo: Negative for fatigue Cardiology Exam Const Appearance: cooperative, healthy appearing, comfortable, no acute distress, welldeveloped and well groomed Head Head: normal to inspection Eyes General: appearance normal, both eyes and all related structures Neck Neck: normal visual inspection and no JVD Carotids: Negative bruit Chest Chest inspection: normal inspection of the chest Auscultation: Bilateral: Clear to Auscultation Cardio Palpation: normal PMI Rate: regular rate Rhythm: regular rhythm Heart sounds: S1 normal, S2 normal and murmur; Negative rub or gallop Murmur: Grade 1/6, soft, early systolic and LLSB GI GI: normal to inspection Neuro General: patient alert and patient oriented x3 Extremities Pulses: Normal: Right Radial Pulse and Left Radial Pulse Lower Extremity Edema: None: Bilateral Psych Psychological: normal affect Supplemental Info Supplemental Information Labs: LDL Cholesterol 323 mg/dL (0-130) H HDL Cholesterol 52 mg/dL (40-) Cholesterol 403 mg/dL (200) H Triglycerides 141 mg/dL (-199) Diagnostics: Electrocardiogram Pulmonary: No Data to Display Past Visits: Cardiology Visit 11/22/24 Assessment and Plan Assessment and Plan (1) Hyperlipidemia: Status: Acute Qualifiers: Hyperlipidemia type: pure hypercholesterolemia Qualified Code(s): E78.00 - Pure hypercholesterolemia, unspecified Plan: Patient is last lipids that I have from November 2023 total cholesterol 403 HDL 52, LDL 323, and triglycerides 141. The patient has failed multiple statins. Givenher numbers and her family history of significant coronary disease and multiple episodes of sudden cardiac in first-degree relatives I would recommend that she be trialed on Repatha. (2) Family history of sudden cardiac : Status: Acute Plan: The patient's father and at least 1 brother of sudden cardiac relatedto ischemic heart disease. She also has 2 sisters that have both had documentedcoronary disease status post revascularization procedures. All have significantelevated lipids in the range that hers are currently showing. The patient's hypertension is well-controlled she has never smoked and she is not diabetic. However given this significant family history I would recommend that she be placed on Repatha given her intolerance of statin therapy. (3) Hypertension: Status: Chronic Qualifiers: Hypertension type: primary hypertension Qualified Code(s): I10 - Essential (primary) hypertension Plan: Blood pressure is well-controlled on her current medical therapy. Orders: Orders 12 Lead EKG performed by [facility] Today E78.5 - Hyperlipidemia, unspecified Lipid Profile 8 Weeks E78.5 - Hyperlipidemia, unspecified Liver Profile 8 Weeks E78.5 - Hyperlipidemia, unspecified Plan 1. Will start Repatha injections twice a month. 2. Fasting lipids and liver functions in 8 weeks. 3. Patient be reevaluated here on a yearly basis and as needed. Plan Details Additional Comments: Thank you for allowing me to participate in the care of your patient. Please don't hesitate to call if any issues arise. This note was generated using a voice recognition system and there may be incorrect words, spelling, or punctuation that were not noted when reviewing theoffice note prior to saving. Portions of this documentation were copied and pasted from previous office visitnotes to provide a cohesive continuity of the history. The note has been reviewed, edited, and updated, as necessary. Follow Up: 1 Year (With Dr. Camacho and as needed) Coding Level of Care Code Off vis,new,level 3 Diagnoses Pure hypercholesterolemia E78.00 Hyperlipidemia type: pure hypercholesterolemia Family history of sudden cardiac Z82.41 Primary hypertension I10 Hypertension type: primary hypertension Coding Level of Care Code Off vis,new,level 3 Diagnoses Pure hypercholesterolemia E78.00 Hyperlipidemia type: pure hypercholesterolemia Family history of sudden cardiac Z82.41 Primary hypertension I10 Hypertension type: primary hypertension Clinical Quality Measures Falls Risk Screening/Assistive Devices Have you fallen in the past year?: No 11/22/24 0908 <Electronically signed by Jw saavedra MD> Date _ Jw Sandoval Signature: Date (if applicable) CC: Dr. Angelique Herrera MD ~ [place] [facility] Work Phone: Discharge summary 02-09-2023 Note Date & Type Note Facility 02-09-2023 Discharge summary Note Date/Time February 09, 2023 9:5 1am [facility] Physical Therapy [facility] [address] [place] [address] / REHABILITATION SERVICES DISCHARGE SUMMARY MR#: [id number] Acct: [id number] Name: VIKI NUNEZ Rep #: [id number] : 1950 72 From: Kimberly Gonsales MP T Referring Dr.: Dr. Angelique Herrera MD Status: REG RCR Insurance: MEDICARE PART A B [employer] [facility] Discharge Summary D/C summary: It has been my pleasure to treat VIKI NUNEZ referred by Dr. Angelique Herrera MD, with the diagnosis of SI Pain for a total of 10 visit(s). Discharge Date: 02/09/23 Please see the following information for a summary of their discharge status. Subjective Subjective: Pt back is much better since the injection in her back. She now hasan appt with Dr Santos for her B achilles cause she is afraid it will rupture. She is still doing her exercises. She had an amazing vacation. Pain SI pain: Pain Intensity (Out of 10): 1 L ankle: Pain Intensity (Out of 10): 0 Overall Improvement % Improvement: 100 Objective Objective/Function: Trunk AROM: Flex 75, Ext 50, SB B 90%, Rot B 75% Gait: Walks with decrease stride and decreased heel to toe gait pattern. If wetry and increase stride her back now feels fine but she still walks with less PFand push off... Pt admits to being fearful of ankles and them tearing more. Hip ext strength: 4/5 B Goals Goal 1:: I HEP Goal Progress: Goal Met Goal 2:: Increase stride length with gait and be able to get back to normal 2 mile walks per day Goal Progress: Progressing Goal 3:: Increase pain free trunk AROM (at time of the eval: Trunk AROM: Flex 25, Ext 10, SB B 50%, Rot L 25%, Rot R 50%) Goal Progress: Goal Met Goal 4:: Increase hip ext strength and with no pain (3+/5 at eval B with pain) Goal Progress: Goal Met Plan Plan: DC PT to HEP. Pt to go to Dr about her B achilles issues D/C Information Discharge Comments: DC PT to HEP d/c sentence: If there are questions or concerns regarding this patient's physical therapy, please feel free to call me at [phone]. Thank you for the referral of thispatient. Sincerely, GINNY West Balance/Gait/Functional tests Balance/Special Test Scores Oswestry Low Back Score: 0 <Electronically signed by Kimberly Gonsales MPT> 02/09/23 0951 CC: Dr. Angelique Herrera MD ~ Signed [facility] Work Phone: Discharge summary 01-31-2023 Note Date & Type Note Facility 01-31-2023 Discharge summary Note Date/Time January 04, 2023 10:28 am [facility] Physical [facility] [address] [place] [address]. [address] [place] [address] / REHABILITATION SERVICES DISCHARGE SUMMARY MR#: [id number] Acct: [id number] Name: VIKI NUNEZ Rep #: [id number] : 1950 72 From: Cert. VILMA rKuseT, [facility] Referring Dr.: Dr. Angelique Herrera MD Status: REG RCR Insurance: MEDICARE PART A B [employer] [facility] Discharge Summary D/C summary: It has been my pleasure to treat VIKI NNUEZ referred by Dr. Angelique Herrera MD, with the diagnosis of SI Pain for a total of 3 visit(s). Discharge Date: Please see the following information for a summary of their discharge status. Subjective Subjective: Patient reports sharp, stabbing, throbbing and some burning pain in buttocks and ankle. Fluctuates between 4-8 pain when up and moving. Ankle pain has been more frequent and when sitting pain is a 8-10 Pain SI pain: Pain Intensity (Out of 10): 4 L ankle: Pain Intensity (Out of 10): 8 Objective Objective/Function: Patient had pinpoint pain and tenderness along piriformis. Continued with stretches with patient stating the stretches seem to help in the moment and added US today. Goals Goal 1:: I HEP Goal 2:: Increase stride length with gait and be able to get back to normal 2 mile walks per day Goal 3:: Increase pain free trunk AROM (at time of the eval: Trunk AROM: Flex 25, Ext 10, SB B 50%, Rot L 25%, Rot R 50%) Goal 4:: Increase hip ext strength and with no pain (3+/5 at eval B with pain) Plan Plan: Trial of US along the L piriformis muscle belly and continue with stretches 2X/ week for 8 weeks for L LE 90/90 nerve root stretching, L IT band stretching,LTR, Piriformis stretches, neutral spine core stability +++Pt does have microtears in B achilles with increase inflammation present...stretching on her own and being seen for that by another Dr+++ HEP: 90/90 nerve root stretch L, bridges, supine hip ball squeeze, LTR with knees more up in flexion to get more stretch into SI area D/C Information d/c sentence: If there are questions or concerns regarding this patient's physical therapy, please feel free to call me at [phone]. Thank you for the referral of thispatient. Sincerely, Jason Jurado PT, Cert MDT, OCS Balance/Gait/Functional tests Balance/Special Test Scores Oswestry Low Back Score: 25 <Electronically signed by Jason Jurado PT Cert. BELIA, BETTY> 01/31/23 9423 CC: Dr. Angelique Herrera MD ~ FLAQUITA Signed [facility] Work Phone: Evaluation note Note Date & Type Note Facility Evaluation note No assessment information availa ble [facility] Work Phone: Evaluation note Note Date & Type Note Facility Evaluation note Diagnosis Onset Date Resolution Family history of sudden cardiac acute November 22, 2024 8:26am Hyperlipidemia acute November 22, 2024 8:26am Hypertension chronic November 22 8:26am [facility] Work Phone: Reason for referral (narrative) Note Date & Type Note Facility Reason for referral (narrative) No reason for referral information available [place] [facility] Work Phone: Summary Purpose Family History No Family History Records Found Relationship Condition Age at Onset Recorded Date/T alex father Hypertension Unknown mother Hypertension Unknown Cerebrovascular accident (CVA) Unknown Relationship Condition Age at Onset Recorded Date/T alex father Hypertension Unknown Coronary artery disease Unknown mother Diabetes mellitus Unknown Myocardial infarction Unknown brother Coronary artery disease Unknown sister Coronary artery disease Unknown sister History of coronary artery bypass surgery Unknown brother Myocardial infarction Unknown Advance Directives No Advanced Directives Records Found Advance Directive Response Recorded Date/ Time Living Will Yes January 19, 2019 10:12am Power of Visual Lead Yes January 19 10:12am Chief Complaint and Reason for Visit Chief Complaint Admit Date HDL (Jolliff) November 22, 2024 8:26a m SCREENING January 02, 2025 3:38p m Reason for Visit Admit Date Family history of sudden cardiac M ay 2024 8:26am Hyperlipidemia November 22, 2024 8:26a m Hypertension November 22, 2024 8:26a m Chief Complaint SACROILIAC PAIN SCREENING, POSTMENOPAUSAL SACROILIAC PAIN/RX HERE Chief Complaint Admit Date HDL (Jolliff) November 22, 2024 8:26a m Additional Source Comments INFORMATION SOURCE (unrecogn ized section and content) DATE CREATED AUTHOR 12/29/2017 [facility] DATE CREATED AUTHOR AUTHOR'S ORGANIZ ATION 02/13/2023 [facility] DATE CREATED AUTHOR AUTHOR'S ORGANIZ ATION 01/12/2025 [facility] Goals (unrecognized section and content) Goals may be documented in a n alternate sectionGoals may be documented in an alternate sectionGoals may be documented in an alternate sectionGoals may be documented in an alternate sectionGoals may be documented in an alternate sectionGoals may be documented in an alternate sectionGoals may be documented in an alternate section Care Teams (unrecognized sec tion and content) Team Status: Active Member Role Status Dates Dr. Angelique Herrera MD Family Provider Active Dr. Angelique Herrera MD Primary Care Provider Active Team Status: Inactive Member Role Status Dates Dr. Angelique Herrera MD Primary Care Prov ider, Attending Provider, Referring Provider Active Team Status: Inactive Member Role Status Dates Dr. Angelique Herrera MD Primary Care Provider, Attendin g Provider Active Team Status: Active Member Role Status Dates Dr. Angelique Herrera MD Primary Care Prov ider, Attending Provider, Referring Provider Active Team Status: Inactive Member Role Status Dates Dr. Angelique Herrera MD Primary Care Provider Active Dr. Esdras Rowe MD Attending Provider Active Team Status: Inactive Member Role Status Dates Dr. Angelique Herrera MD Primary Care Provider Active Start: November 22, 2024 End: November 22, 2024 Dr. Angelique Herrera MD Referring Provider Active Start: November 22, 2024 End: November 22, 2024 Dr. Jw Camacho MD Attending Provider Active Start: November 22, 2024 End: November 22, 2024 Team Status: Active Member Role Status Dates Dr. Angelique Herrera MD Primary Care Provider Active Team Status: Inactive Member Role Status Dates Dr. Angelique Herrera MD Primary Care Provider Active Start: December 01, 2024 End: December 01, 2024 Dr. Angelique Herrera MD Attending Provider Active Start: December 01, 2024 End: December 01, 2024 Team Status: Active Member Role/Relationship Status Dates Dr. Angelique Herrera MD Primary Care Provider Active Team Status: Inactive Member Role/Relationship Status Dates Dr. Angelique Herrera MD Primary Care Provider Active Start: November 22, 2024 End: November 22, 2024 Dr. Angelique Herrera MD Referring Provider Active Start: November 22, 2024 End: November 22, 2024 Dr. Jw Camacho MD Attending Provider Active Start: November 22, 2024 End: November 22, 2024 Team Status: Inactive Member Role/Relationship Status Dates Dr. Angelique Herrera MD Primary Care Provider Active Start: December 01, 2024 End: December 01, 2024 Dr. Angelique Herrera MD Attending Provider Active Start: December 01, 2024 End: December 01, 2024 Team Status: Inactive Member Role/Relationship Status Dates Dr. Angelique Herrera MD Primary Care Provider Active Start: January 02, 2025 End: January 02, 2025 INNA Crowley NP Attending Provider Active Start: January 02, 2025 End: January 02, 2025 INNA Crowley NP Referring Provider Active Start: January 02, 2025 End: January 02, 2025 FOR RECORDS PERTAINING TO PATIENTS WHO ARE OR HAVE BEEN ENROLLED IN A CHEMICAL DEPENDENCY/SUBSTANCEABUSE PROGRAM, SOME INFORMATION MAY BE OMITTED. This clinical summary was aggregated from multiple sources. Caution should be exercised in using it in the provision of clinical care. This summary normalizes information from multiple sources, and as a consequence, information in this document may materially change the coding, format and clinical context of patient data. In addition, data may be omitted in some cases. CLINICAL DECISIONS SHOULD BE BASED ON THE PRIMARY CLINICAL RECORDS. [facility] [employer] provides no warranty or guarantee of the accuracy or completeness of information in this document.
[2025-03-26 13:05] LABS: Cholesterol 299 mg/dL (<=200); Low Density Lipoprotein Calc. 225 mg/dL; Triglycerides 93 mg/dL; Very Low Density Lipoprotein 19 mg/dL (5-40); cholesterol:hdl ratio screen 5.37
[2025-03-26 14:07] LABS: AST(SGOT) 21 U/L (<=31); Alanine Aminotransfer ALT/SGPT 20 U/L (<=34); Albumin, Serum 4.2 g/dL (3.4-4.8); Alkaline Phosphatase 103 U/L (35-104); Bilirubin, Direct 0.15 mg/dL (0.00-0.30); Globulin 2.9 g/dL (2.2-4.2)
== END | disposition home or self-care (01) ==
LOC: MFPLAB 09:38
PROVIDERS: Internal Medicine Cardiovascular Disease; PCP Family Medicine; Visit Provider Family Medicine
DX: E78.5 Hyperlipidemia, unspecified (principal)
CPT/HCPCS: 36415; 80061; 80076

== ENCOUNTER 2025-05-27 23:20 | Inpatient (IN) | payer MEDICARE, OTHER, SELFPAY ==
--- NOTE | 2025-05-27 00:15 | RAD_ITS ---
PROCEDURE: CHEST PA AND LATERAL 05/28/2025 REASON FOR EXAM: CHEST PAIN TECHNIQUE: Procedure Code: RADCXR Modality: DX Procedure: CHEST PA AND LATERAL COMPARISON: 01/19/2019. FINDINGS: Chronic bronchopulmonary changes are noted within the lungs, similar to the previous study. No airspace consolidation or pleural effusion. The cardiac silhouette is stable in size with mild atherosclerotic calcification of the aortic knob. Mild levoconvex scoliosis of the lumbar spine, similar to the previous study. Diffuse osteopenia. RAD/Chest PA and Lateral IMPRESSION: As above. Reading Location: [id number]
[2025-05-27 23:21] VITALS: BP 174/76; PULSE 92; RESP 20; TEMP 36.1; O2SAT 98; BMI 23.7
--- NOTE | 2025-05-27 23:45 | EKG12_ITS ---
Test Reason : CP Blood Pressure : */* mmHG Vent. Rate : 91 BPM Atrial Rate : 91 BPM P-R Int : 172 ms QRS Dur : 74 ms QT Int : 362 ms P-R-T Axes : 72 44 93 degrees QTcB Int : 445 ms Normal sinus rhythm Nonspecific ST and T wave abnormality Abnormal ECG Confirmed by RAS ESPARZA, SHOSHANA ([id number]), order editor NANCY ALBARADO ([id number]) on 05/28/2025 1:11:09 PM Referred By: Confirmed By: SHOSHANA MCGINNIS MD
[2025-05-27 23:51] LABS: Hematocrit 38.3 % (37-47); Hemoglobin 12.9 g/dL (12.0-15.0); Immature Granulocytes Count 0.020 X10^3/uL (0.0-0.0); Mean Corp Hgb Conc 33.7 g/dL (32-36); Mean Corpuscular Volume 92.1 fL (81-99); Mean Platelet Vol. 9.3 fl (6.2-12.0); NRBC Flagged by Analyzer 0 % (0-5); Platelet Count 297 K/mm3 (150-450); RBC Distribution Width CV 12.2 % (11.6-14.6); RBC Distribution Width SD 41.8 fl (35.1-43.9); Red Blood Count 4.16 M/mm3 (4.2-5.4); White Blood Count 8.9 K/mm3 (4.4-11.0)
[2025-05-27] MEDS: Nitroglycerin SL (ED/IMG/CATH) 0.4 MG TABLET SL (23:53)
[2025-05-27 23:57] VITALS: BP 147/84; PULSE 74; RESP 18; TEMP 36.6; O2SAT 97
[2025-05-28] VITALS (28 sets, daily range): BP systolic 105–152; BP diastolic 58–94; PULSE 67–91; RESP 14–20; TEMP 36.4–36.8; O2SAT 94–100; BMI 23.7; BMI 23.6
[2025-05-28 00:17] LABS: Prothrombin Time (Protime)PT. 13.0 SECONDS (11.7-14.9)
[2025-05-28 00:18] LABS: Partial Thromboplast Time 29.4 Seconds (24.1-36.2)
[2025-05-28 00:30] LABS: Anion Gap 15 (5-15); BUN 23 mg/dL (4-19); BUN/Creat Ratio 26.9 RATIO (10-20); Calcium,Total 10.0 mg/dL (7.6-11.0); Carbon Dioxide 24.3 mmol/L (21.0-32.0); Chloride 101 mmol/L (98-108); Estimated Creatinine Clearance 42.16 ml/min (50-250); Glucose 118 mg/dL (70-99); Potassium 3.5 mmol/L (3.3-5.1)
[2025-05-28 00:31] LABS: Magnesium 2.0 mg/dL (1.5-2.2)
--- OUTSIDE RECORDS SUMMARY | 2025-05-28 00:32 | XMS RPT_ITS | CCD ---
Author Organization [facility] Inform ion Partnership [facility] Care Team Providers Care [employer] Umpire Name Role Phone TAD CANDELARIO (PARTS SALVAGER) Unavailable [employer], [place] Primary Care Unavailable RODOLFO NAVARRETE Attending Unavailable Javier ESPARZA, Dr. Angelique Saavedra Primary Care Provider Javier ESPARZA, Dr. Angelique Saavedra Referring Provider Dr. Jw Camacho MD Attending Provider Javier ESPARZA, Dr. Angelique Saavedra Attending Provider McMorrow CARD FEEDER-C, Anjel Attending Provider McMorrow CARD FEEDER-C, Anjel Referring Provider Javier ESPARZA, Dr. Aneglique Saavedra Primary Care Physician McMorrow CARD FEEDER-C, Anjel Attending Physician Ninoska Sales MD Attending Physician Angelique Herrera Primary Care Unavailable Ninoska Sales Attending Unavailable McMorrow CARD FEEDERAnjel Referring Unavailable McMorrow CARD FEEDERAnjel Attending Unavailable Angelique Herrera Primary Care Unavailable Angelique Herrera Attending Unavailable Angelique Herrera Primary Care Unavailable Jw Camacho Attending Unavailable Angelique Herrera Referring Unavailable Angelique Herrera Primary Care Unavailable Allergies Allergy Classification Reported Allergen(s) Allergy Type Date of Onset Reaction(s) Facility (4 sources) Wsaeuxu-Xry-Uqk Reductase Inhibitor Propensity to adverse reactions 5 myalgia [facility] (1 source) Hqgegfx-Vgr-Oqf Reductase Inhibitor Drug allergy (disorder) 5 [facility] Repository Medications Current Medications Medication Drug Class(es) Dates Sig (Normalized) Sig (Original) aspirin 81 mg delayed release oral tablet (4 sources) Platelet Aggregation Inhibitor, Nonsteroidal Anti-inflammatory Drug Start: 11-13-2024 chondroitin sulfates 200 mg / glucosamine hydrochloride 250 mg oral tablet (4 sources) Start: 11-13-2024 Start: 11-13-2024 Glucosamine-Ch ondroitin (Osteo Bi-Flex) 250-200 mg tablet Active 2 {tbl} PO daily November 13, 2024 12:00am 1 ml evolocumab 140 mg/ml auto-injector (4 sources) PCSK9 Inhibitor Start: 11-22-2024 End: 11-22-2024 hydroCHLOROthiazide 25 mg oral tablet (8 sources) Thiazide Diuretic Start: 12-10-2015 take 1 tablet by mouth once daily lisinopril 40 mg oral tablet (12 sources) Angiotensin Converting Enzyme Inhibitor Start: 11-13-2024 take 1 tablet by mouth once daily Start: 12-10-2015 End: 11-13-2024 take 1 tablet by mouth once daily Lisinopril 10 MG tablet Discontinued 10 mg PO DAILY December 10, 2015 12:00am November 13, 2024 9:46am melatonin 10 mg oral capsule (4 sources) Start: 11-13-2024 take 1 capsule by mouth at bedtime as needed zolpidem tartrate 10 mg oral tablet (4 sources) gamma-Aminobutyric Acid-ergic Agonist Start: 11-13-2024 take 1 tablet by mouth at bedtime Completed/Discontinued Medications Medication Drug Class(es) Dates Sig (Normalized) Sig (Original) acetaminophen 325 mg / oxyCODONE hydrochloride 5 mg oral tablet (8 sources) Opioid Agonist Start: 01-19-2019 End: 01-29-2019 Oxycodone-Acetamino phen 1 TABLET tablet Discontinued 1 {tbl} PO EVERY 6 HOURS NEEDED as needed for Pain January 19, 2019 January 23, 2019 12:00am January 29, 2019 12:08am Closed fracture of shaft of clavicle Start: 01-19-2019 End: 01-29-2019 take 1 tablet by mouth every six hours as needed Oxycodone-Acetaminophen Discontinued 1 TABLET PO EVERY 6 HOURS NEEDED 21 11January 19, 2019 January 29, 2019 12:08am docusate sodium 100 mg oral capsule (8 sources) Start: 01-19-2019 End: 06-10-2020 take 1 capsule by mouth once daily Docusate Sodium 100 MG capsule Discontinued 100 mg PO DAILY January 19, 2019 12:00am June 10, 2020 [...] 2 weeks November 22, 2024 12:00am Problems Active Problems Problem Classification Problem Date Documented Da te Episodic/Chronic Cancer of breast (1 source) Malignant neoplasm of unspecified site of left female breast; Translations: [Malignant neoplasm of unspecified site of left female breast] Onset: 03-18-2017 Chronic Disorders of lipid metabolism (9 sources) Hyperlipidemia; Translations: [Hyperlipidemia, unspecified] Onset: 11-22-2024 11-22-2024 Chronic Essential hypertension (8 sources) Hypertensive disorder; Translations: [Essential (primary) hypertension] Onset: 11-22-2024 11-22-2024 Chronic Neoplasms of unspecified nature or uncertain behavior (8 sources) Nodular tenosynovitis; Translations: [Neoplasm of uncertain [...] leg] Onset: 02-12-2023 Episodic Residual codes; unclassified (7 sources) Family history of sudden cardiac ; Translations: [Family history of sudden cardiac ] 11-22-2024 Episodic Unclassified (3 sources) Encounter for screening mammogram for malignant neoplasm of breast; Translations: [Encounter for screening for osteoporosis] Onset: 03-18-2017 Episodic Past or Other Problems Problem Classification Problem Date Documented Da te Episodic/Chronic Residual codes; unclassified (1 source) Family history of sudden cardiac ; Translations: [Family history of sudden cardiac ] Onset: 11-22-2024 Episodic Results Test Name Value Interpretation Reference Range Facility Bilirubin directOrdered By: Jw Camacho on 03-26-2025 Bilirubin.direct [Mass/Vol] 0.15 mg/dL 0.00-0.30 [facility] Bilirubin, totalOrdered By: Jw Camacho on 03-26-2025 Bilirubin [Mass/Vol] 0.40 mg/dL 0.00-1.30 [facility] Calculated very low density lipoprotein (VLDL) cholesterol measurementOrdered By: Ninoska Sales on 03-26-2025 Calculated very low density lipoprotein (VLDL) cholesterol measurement 19 mg/dL 5-40 [facility] LDL calc ser/plasOrdered By: Ninoska Sales on 03-26-2025 Cholesterol in LDL [Mass/Vol] 225 mg/dL [facility] Comment on above: Vyizcnuxww=331-287 m g/dL & Higher Ekza=561 mg/dL or greaterFriedwald Equation for LDL-C Laboratory - Chemistry and C hemistry - challengeOrdered By: Jw Camacho on 03-26-2025 AST [Catalytic activity/Vol] 21 U/L <32 [facility] Lipid Profileon 03-26-2025 CHOL:HDL 5.37 Normal [facility] Comment on above: Order Comment: Order Date: 01/02/25 Order Info: [id number] - LIPID Performed By: #### L 500.4100 #### [facility] [address] [place], [address] Cholesterol [Mass/Vol] 299 mg/dL High <=200 [facility] Comment on above: Order Comment: Order Date: 01/02/25 Order Info: [id number] - LIPID Result Comment: Chol esterol level, Desirable <200 mg/dL Borderline high cholesterol 200-239 mg/dL High cholesterol >=240 mg/dL Recommendations of the NCEP Adult Treatment Panel for the following risk-cutoff thresholds for the [place] population. Performed By: #### L 500.4100 #### [facility] [address] [place], [address] Cholesterol in HDL [Mass/Vol] 56 mg/dL Normal [facility] Comment on above: Order Comment: Order Date: 01/02/25 Order Info: [id number] - LIPID Result Comment: Laruen onal Cholesterol Education Program (NCEP) guidelines: <40 mg/dL: Low HDL-cholesterol (major risk factor for CHD) >= 60 mg/dL: High HDL-cholesterol (negative risk factor for CHD) HDL-cholesterol is affected by a number of factors, e.g. smoking, exercise, hormones, sex and age. Performed By: #### L 500.4100 #### [facility] [address] [place], [address] Cholesterol in LDL [Mass/Vol] 225 mg/dL Normal [facility] Comment on above: Order Comment: Order Date: 01/02/25 Order Info: [id number] - LIPID Result Comment: Bord fdgasg=183-469 mg/dL Higher Zsgj=944 mg/dL or greater Friedwald Equation for LDL-C Performed By: #### L 500.4100 #### [facility] [address] [place], [address] Cholesterol in VLDL [Mass/Vol] 19 mg/dL Normal 5-40 [facility] Comment on above: Order Comment: Order Date: 01/02/25 Order Info: [id number] - LIPID Performed By: #### L 500.4100 #### [facility] [address] [place], [address] Triglyceride [Mass/Vol] 93 mg/dL Normal [facility] Comment on above: Order Comment: Order Date: 01/02/25 Order Info: [id number] - LIPID Result Comment: The drugs N-Acetylcysteine and Metamizole may falsely depress this assay. Normal range: <150 mg/dL Borderline High: 150-199 mg/dL High: 200-499 mg/dL Very High: >500 mg/dL Performed By: #### L 500.4100 #### [facility] [address] [place], [address] Liver Profileon 03-26-2025 Albumin [Mass/Vol] 4.2 g/dL Normal 3.4-4.8 [facility] Comment on above: Performed By: #### L 500.3400 #### [facility] [address] [place], [address] ALK PHOS 103 U/L Normal 35-104 [facility] Comment on above: Performed By: #### L 500.3400 #### [facility] [address] [place], [address] ALT [Catalytic activity/Vol] 20 U/L Normal <=34 [facility] Comment on above: Performed By: #### L 500.3400 #### [facility] [address] [place], [address] AST [Catalytic activity/Vol] 21 U/L Normal <=31 [facility] Comment on above: Performed By: #### L 500.3400 #### [facility] [address] [place], [address] Bilirubin [Mass/Vol] 0.40 mg/dL Normal 0.00-1.30 [facility] Comment on above: Performed By: #### L 500.3400 #### [facility] [address] [place], [address] Bilirubin.direct [Mass/Vol] 0.15 mg/dL Normal 0.00-0.30 [facility] Comment on above: Performed By: #### L 500.3400 #### [facility] [address] [place], [address] Globulin (S) [Mass/Vol] 2.9 g/dL Normal 2.2-4.2 [facility] Comment on above: Performed By: #### L 500.3400 #### [facility] [address] [place], [place], [id number] T PROT 7.1 g/dL Normal 5.9-8.4 [facility] Comment on above: Performed By: #### L 500.3400 #### [facility] [address] [place], [place], [id number] Screening total cholesterol/ high density lipoprotein (HDL) cholesterol ratioOrdered By: Ninoska Sales on 03-26-2025 Cholesterol.total/Chol esterol in HDL [Mass ratio] 5.37 {ratio} [facility] Serum globulin measurementOr dered By: Jw Camacho on 03-26-2025 Globulin (S) [Mass/Vol] 2.9 g/dL 2.2-4.2 [facility] Serum or plasma alanine fonseca otransferase (ALT) measurementOrdered By: Jw Camacho on 03-26-2025 ALT [Catalytic activity/Vol] 20 U/L <35 [facility] Serum or plasma albumin og urement (mass/volume)Ordered By: Jw Camacho on 03-26-2025 Albumin [Mass/Vol] 4.2 g/dL 3.4-4.8 [facility] Serum or plasma alkaline tyrone sphatase measurementOrdered By: Jw Camacho on 03-26-2025 ALP [Catalytic activity/Vol] 103 U/L 35-104 [facility] Serum or plasma cholesterol in HDL measurement (mass/volume)Ordered By: Ninoska Sales on 03-26-2025 Cholesterol in HDL [Mass/Vol] 56 mg/dL >40 [facility] Comment on above: National Cholesterol Education Program (NCEP) guidelines:<40 mg/dL: Low HDL-cholesterol (major risk factor for CHD)>= 60 mg/dL: High HDL-cholesterol (negative risk factor for CHD)HDL-cholesterol is affected by a number of factors, e.g. smoking, exercise, hormones, sex and age. Serum or plasma cholesterol measurement (mass/volume)Ordered By: Ninoska Sales on 03-26-2025 Cholesterol [Mass/Vol] 299 mg/dL High <201 [facility] Comment on above: Cholesterol level, D esirable <200 mg/dLBorderline high cholesterol 200-239 mg/dLHigh cholesterol >=240 mg/dLRecommendations of the NCEP Adult Treatment Panel for the following risk-cutoff thresholds for the [place] population. Total proteinOrdered By: True holly Camacho on 03-26-2025 Protein [Mass/Vol] 7.1 g/dL 5.9-8.4 [facility] Triglycerides measurementOrd ered By: Ninoska Sales on 03-26-2025 Triglyceride [Mass/Vol] 93 mg/dL <199 [facility] Comment on above: The drugs N-Acetylcy steine and Metamizole may falsely depress this assay. Normal range: <150 mg/dLBorderline High: 150-199 mg/dLHigh: 200-499 mg/dLVery High: >500 mg/dL Bone density reportOrdered B y: Luís Love on 01-03-2025 Study report Skeletal system DXA [facility] Services [address] [place], [place] [address] Dexa Bone Density Study MR#: [id number] Acct: [id number] Name: VIKI NUNEZ Rep #: [id number] : 1950 F 74 From: Pretty Love MD PCP: Dr. Angelique Herrera MD Status: [facility] Study:Dexa Bone Density Study Date of Exam: 01/02/25 Exam# [id number] Ordering Dr: Anjel Adams CARD FEEDER CARD FEEDER-C PROCEDURE: DEXA BONE DENSITY STUDY 01/02/2025 REASON [...] Bone Density Study IMPRESSION: OSTEOPOROSIS. Reading Location: [id number] CC: Anjel Adams; Dr. Angelique Herrera MD ~ Radiation Safety Officer: Signed [facility] Breast imaging reportOrdered By: Adriana Cash on 01-02-2025 Study report [facility] Imaging Services [address] [place] [id number] SCRN MAMM (CAD)W/HERBIE BILAT MR#: [id number] Acct: [id number] Name: VIKI NUNEZ Rep #: [id number] : 1950 F 74 From: Demario Mccauley MD PCP: Dr. Angelique Herrera MD Status: [facility] Study:SCRN MAMM (CAD)W/HERBIE BILAT Date of Exa m: 01/02/25 Exam# [id number] Ordering Dr: Anjel Adams NP, NP-C EXAM: SCRN MAMM (CAD)W/HERBIE BILAT DATE: 01/02/2025 [...] be mailed to the patient. Reading Location: [id number] CC: Anjel Adams; Dr. Angelique Herrera MD ~ Radiation Safety Officer: Signed [facility] Dexa Bone Density Studyon Dexa Bone Density Study [facility] Services [address] [place], [place] [address] Dexa Bone Density Study MR#: [id number] Acct: [id number] Name: VIKI NUNEZ Rep #: [id number] : 1950 F 74 From: Luís Love MD PCP: Dr. Angelique Herrera MD Status: [facility] Study: Dexa Bone Density Study Date of Exam: 01/02/25 Exam# [id number] Ordering Dr: Anjel Adams NP, NP PROCEDURE: [...] Bone Density Study IMPRESSION: OSTEOPOROSIS. Reading Location: [id number] CC: Anjel Adams; Dr. Angelique Herrera MD Radiation Safety Officer: Signed [facility] SCRN MAMM (CAD)W/HERBIE BILATo n 01-02-2025 SCRN MAMM (CAD)W/HERBIE BILAT [facility] Imaging Services [address] [place] [address] SCRN MAMM (CAD)W/HERBIE BILAT MR#: [id number] Acct: [id number] Name: VIKI NUNEZ Rep #: [id number] : 1950 F 74 From: Adriana Jernigan i, MD PCP: Dr. Angelique Herrera MD Status: [facility] Study: SCRN MAMM (CAD)W/HERBIE BILAT Date of Exam: 07/29 Exam# [id number] Ordering Dr: Anjel Adams NP, NP EXAM: SCRN MAMM (CAD)W/HERBIE BILAT DATE: 01/02/2025 [...] be mailed to the patient. Reading Location: [id number] CC: Anjel Adams; Dr. Angelique Herrera MD Radiation Safety Officer: Signed [facility] Calculated very low density lipoprotein (VLDL) cholesterol measurementOrdered By: Anjel Ariskristie on 12-01-2024 Calculated very low density lipoprotein (VLDL) cholesterol measurement 21 mg/dL 5-40 [facility] Hemoglobin A1con 12-01-2024 HbA1c (Bld) [Mass fraction] 5.7 % Normal <=5.6 [facility] Comment on above: Order Comment: PER P T-JUST [facility] ORDER Order Date: 12/01/24 Order Info: [id number] - A1C Comments: screening diabetes Result Comment: Norm al < 5.7 % Prediabetic 5.7 - 6.4 % Diabetic >or= 6.5 % Please note range changes. Performed By: #### L 501.9985 #### [facility] [address] [place], [place], [id number] Hemoglobin A1c percentageOrd ered By: Anjel Ariskristie on 12-01-2024 HbA1c (Bld) [Mass fraction] 5.7 % <5.7 [facility] Comment on above: Normal < 5.7 % Predi abetic 5.7 - 6.4 % Diabetic >or= 6.5 % Please note range changes. LDL calc ser/plasOrdered By: Anjel Adams on 12-01-2024 Cholesterol in LDL [Mass/Vol] 353 mg/dL [facility] Comment on above: Qkwdjhgxnk=835-828 m g/dL & Higher Fxss=507 mg/dL or greater Lipid Profileon 12-01-2024 CHOL:HDL 8.04 Normal [facility] Comment on above: Order Comment: PER P T-JUST [facility] ORDER Order Date: 12/01/24 Order Info: [id number] - LIPID Comments: screening cholesterol Performed By: #### L 500.4100 #### [facility] [address] [place], [place], [id number] Cholesterol [Mass/Vol] 427 mg/dL High <=200 [facility] Comment on above: Order Comment: PER P T-JUST [facility] ORDER Order Date: 12/01/24 Order Info: [id number] - LIPID Comments: screening cholesterol Result Comment: Chol esterol level, Desirable <200 mg/dL Borderline high cholesterol 200-239 mg/dL High cholesterol >=240 mg/dL Recommendations of the NCEP Adult Treatment Panel for the following risk-cutoff thresholds for the [place] population. Performed By: #### L 500.4100 #### [facility] [address] [place], [address] Cholesterol in HDL [Mass/Vol] 53 mg/dL Normal [facility] Comment on above: Order Comment: PER P T-JUST ORR ORDER Order Date: 12/01/24 Order Info: [id number] - LIPID Comments: screening cholesterol Result Comment: Lauren onal Cholesterol Education Program (NCEP) guidelines: <40 mg/dL: Low HDL-cholesterol (major risk factor for CHD) >= 60 mg/dL: High HDL-cholesterol (negative risk factor for CHD) HDL-cholesterol is affected by a number of factors, e.g. smoking, exercise, hormones, sex and age. Performed By: #### L 500.4100 #### [facility] [address] [place], [address] Cholesterol in LDL [Mass/Vol] 353 mg/dL Normal [facility] Comment on above: Order Comment: PER P T-JUST ORDER Order Date: 12/01/24 Order Info: [id number] - LIPID Comments: screening cholesterol Result Comment: Bord gsddqf=245-451 mg/dL Higher Jbko=500 mg/dL or greater Performed By: #### L 500.4100 #### [facility] [address] [place], [address] Cholesterol in VLDL [Mass/Vol] 21 mg/dL Normal 5-40 [facility] Comment on above: Order Comment: PER P T-JUST ORR ORDER Order Date: 12/01/24 Order Info: [id number] - LIPID Comments: screening cholesterol Performed By: #### L 500.4100 #### [facility] [address] [place], [address] Triglyceride [Mass/Vol] 103 mg/dL Normal [facility] Comment on above: Order Comment: PER P T-JUST ORR ORDER Order Date: 12/01/24 Order Info: [id number] - LIPID Comments: screening cholesterol Result Comment: The drugs N-Acetylcysteine and Metamizole may falsely depress this assay. Normal range: <150 mg/dL Borderline High: 150-199 mg/dL High: 200-499 mg/dL Very High: >500 mg/dL Performed By: #### L 500.4100 #### [facility] [address], [address] Screening total cholesterol/ high density lipoprotein (HDL) cholesterol ratioOrdered By: Anjel Adams on 12-01-2024 Cholesterol.total/Chol esterol in HDL [Mass ratio] 8.04 {ratio} [facility] Serum or plasma cholesterol in HDL measurement (mass/volume)Ordered By: Anjel Adams on 12-01-2024 Cholesterol in HDL [Mass/Vol] 53 mg/dL >40 [facility] Comment on above: National Cholesterol Education Program (NCEP) guidelines:<40 mg/dL: Low HDL-cholesterol (major risk factor for CHD)>= 60 mg/dL: High HDL-cholesterol (negative risk factor for CHD)HDL-cholesterol is affected by a number of factors, e.g. smoking, exercise, hormones, sex and age. Serum or plasma cholesterol measurement (mass/volume)Ordered By: Anjel Adams on 12-01-2024 Cholesterol [Mass/Vol] 427 mg/dL High <201 [facility] Comment on above: Cholesterol level, D esirable <200 mg/dLBorderline high cholesterol 200-239 mg/dLHigh cholesterol >=240 mg/dLRecommendations of the NCEP Adult Treatment Panel for the following risk-cutoff thresholds for the [place] population. Triglycerides measurementOrd ered By: Anjel Adams on 12-01-2024 Triglyceride [Mass/Vol] 103 mg/dL <199 [facility] Comment on above: The drugs N-Acetylcy steine and Metamizole may falsely depress this assay. Normal range: <150 mg/dLBorderline High: 150-199 mg/dLHigh: 200-499 mg/dLVery High: >500 mg/dL 12 Lead EKG performed by [employer] 2000 on 11-22-2024 12 Lead EKG performed by [facility] [address] [place] [address] 12 Lead EKG performed by [facility] 11/22/241658 MR#: [id number] Acct: [id number] Name: VIKI NUNEZ Rep #: [id number] : 1950 74 From: Jw Camacho MD Attending Dr: Dr. Jw Camacho MD Status: DE P AMB Ordering Dr: Jw Camacho MD Date: 11/22/24 Location: [facility] Sex: F C Admitted: BMS/12 Lead EKG performed by [facility] ECG Report Interpretation --Sinus Rhythm WITHIN NORMAL LIMITSElectronically signed on 11/22/2024 at 12:[address] Jw Camacho [employer] Version 8610 11/22/24 1207 Date Jw Camacho MD CC: Dr. Angelique Herrera MD Date Dictated: 11/22/241658 Date Transcribed: 11/22/241658 Radiation Safety Officer: Signed Normal [facility] Cardiology Visit Reporton Cardiology Visit Report [facility] [address] [place] [address] OFFICE VISIT Date of Service: 11/22/24 MR#: [id number] Acct: [id number] Name: VIKI NUNEZ Rep #: [id number] : 1950 Provider: Dr. Jw hutchinson MD Age/Sex: 74/F Location: [facility] Status: Signed with Addenda ADDENDUM by Dr. [...] room air Intake Visit Reasons: HDL (Javier) Rn Allergy Required: No Accompanied by: Self Is patient in pain?: No Allergies Lebakad-QIQ-CeO Reductase Inhibitor Adverse Reaction (Verified 11/22/24 08:30) [...] Q2W #2 mL 11/22/24 Rx pen injector (Labs on the [employer]) Have you fallen in the past year?: [...] or we (more content not included)... Normal [facility] PT D/C Summary (1)on 024 PT D/C Summary (1) [facility] Physical Therapy [facility] [address] [place] [address] / REHABILITATION SERVICES DISCHARGE SUMMARY MR#: [id number] Acct: [id number] Name: VIKI NUNEZ Rep #: [id number] : 1950 74 From: Mckenzie Guillen PT. T, OCS Referring Dr.: Dr. Angelique Herrera MD Status: RE G RCR Insurance: MEDICARE PART A B [employer] [facility] Discharge Summary D/C summary: It has been [...] please feel free to call me at [phone]. Thank you for the referral of this patient. Sincerely, Jason Jurado, PT, Cert T, OCS Balance/Gait/Functional tests Balance/Special Test Scores Quick DASH Score: 63.6350 06/07/24 1455 CC: Dr. Angelique Herrera MD FLAQUITA Signed Normal [facility] Culture, urineOrdered By: Dameon Rowe on 03-03-2023 Bacteria identified Cx Nom (U) Presumptive E. coli [facility] Office Visiton 02-12-2023 Follow-up visit [id number] Quentin Nunez er 1950 F Date Provider Department Center 02/12/2023 24970-YNCEJUTDRODOLFO NAVARRETE [facility] WAD None No family history on file Level of Service:42728 ME OFFICE/OUTPATIENT NEW LOW MDM 30-44 MINUTES Reason for Visit and Comments: New Patient [542] - Left Achilles Tendinitis Normal [facility] PATINSon 02-12-2023 PATINS Achilles Tendon: Eccentric Exercises Range of [...] 10 3 12 3 15 3 Normal [facility] Progress Noteon 02-12-2023 Progress Note [facility] [address] [place] [address] Dept: [phone] Dept Chief Complaint Patient presents with New [...] prior to signing but minor errors in procurement agent may have occurred. Normal [facility] Basophil percentageOrdered B y: Dr. Herrera on 11-23-2022 Chloride [Moles/Vol] 106 mmol/L 98-107 [facility] Cholesterol [Mass/Vol] 380 mg/dL <200 [facility] Comment on above: <200 mg/dL Desirable 200-240 mg/dL Borderline >240 mg/dL High Risk Glucose [Mass/Vol] 105 mg/dL 74-106 [facility] Comment on above: Fasting Glucose resu lt from 100 to 125 mg/dL suggests IMPAIRED HOMEOSTASIS per A.D.A. criteria. Potassium [Moles/Vol] 3.9 mmol/L 3.5-5.1 [facility] Sodium [Moles/Vol] 141 mmol/L 136-145 [facility] Triglyceride [Mass/Vol] 96 mg/dL <199 [facility] [facility] Comment on above: The drugs N-Acetylcy steine and Metamizole may falsely depress this assay.Serum Triglycerides Reference Interval Normal <150 mg/dL Borderline high 150 - 199 mg/dL High 200 - 499 mg/dL Very High > or = 500 mg/dL Laboratory - Chemistry and C hemistry - challengeOrdered By: Dr. Herrera on 11-23-2022 ALT [Catalytic activity/Vol] 31 U/L 13-56 [facility] CO2 [Moles/Vol] 27.0 mmol/L 21.0-32.0 [facility] Urea nitrogen/Creatinine [Mass ratio] 34.4 mg/mg 10-20 [facility] No Panel InformationOrdered By: Dr. Herrera on 11-23-2022 Estimated GFR (MDRD) Amer 106 mL/min >60 [facility] Comment on above: GFR Calc Estimated GFR (MDRD) Non-Af Amer 88 mL/min >60 [facility] Comment on above: Non- GFR Calc Serum or plasma calcium og urement (mass/volume)Ordered By: Dr. Herrera on 11-23-2022 Calcium [Mass/Vol] 9.3 mg/dL 8.5-10.1 [facility] Serum or plasma cholesterol in HDL measurement (mass/volume)Ordered By: Dr. Herrera on 11-23-2022 Cholesterol in HDL [Mass/Vol] 56 mg/dL >40 [facility] Comment on above: The drugs N-Acetylcy steine and Metamizole may falsely depress this assay. Reference Range HDL <40 mg/dL Low HDL Cholesterol HDL >or= 60 mg/dL High HDL Cholesterol Serum or plasma cholesterol in VLDL measurement (mass/volume)Ordered By: Dr. Herrera on 11-23-2022 Cholesterol in VLDL [Mass/Vol] 19 mg/dL 5-40 [facility] Serum or plasma creatinine m easurement (mass/volume)Ordered By: Dr. Herrera on 11-23-2022 Creatinine [Mass/Vol] 0.70 mg/dL 0.55-1.02 [facility] Comment on above: The validity of the calculated GFR & GFRAA in patients over 70 years has not been determined. Clinical correlation is essential. Serum or plasma low density lipoprotein (LDL) cholesterol measurement (mass/volume)Ordered By: Dr. Herrera on 11-23-2022 Cholesterol in LDL [Mass/Vol] 305 mg/dL 0-130 [facility] Serum or plasma urea nitroge n measurement (mass/volume)Ordered By: Dr. Herrera on 11-23-2022 Urea nitrogen [Mass/Vol] 24 mg/dL 7-18 [facility] Thin prep Papanicolaou smear with manual screeningOrdered By: Dr. Herrera on 11-23-2022 Thin prep Papanicolaou smear with manual screening 17 U/L 15-37 [facility] Thin prep Papanicolaou smear with manual screening 8 5-15 [facility] Basophil percentageon 2021 Chloride [Moles/Vol] 106 mmol/L 98-107 [facility] Work Phone: Cholesterol [Mass/Vol] 392 mg/dL <200 [facility] Work Phone: [phone] Comment on above: <200 mg/dL Desirable 200-240 mg/dL Borderline >240 mg/dL High Risk Glucose [Mass/Vol] 89 mg/dL 74-106 [facility] Work Phone: Potassium [Moles/Vol] 4.1 mmol/L 3.5-5.1 [facility] Work Phone: [phone] Sodium [Moles/Vol] 140 mmol/L 136-145 [facility] Work Phone: [phone] Triglyceride [Mass/Vol] 119 mg/dL [facility] Work Phone: Comment on above: The drugs N-Acetylcy steine and Metamizole may falsely depress this assay.Serum Triglycerides Reference Interval Normal <150 mg/dL Borderline high 150 - 199 mg/dL High 200 - 499 mg/dL Very High > or = 500 mg/dL Laboratory - Chemistry and C hemistry - challengeon 11-10-2021 CO2 [Moles/Vol] 27.0 mmol/L 21.0-32.0 [facility] Work Phone: Urea nitrogen/Creatinine [Mass ratio] 23.9 mg/mg 10-20 [facility] Work Phone: No Panel Informationon 11-10 Estimated GFR (MDRD) Amer 97 mL/min >60 [facility] Work Phone: Comment on above: GFR Calc Estimated GFR (MDRD) Non-Af Amer 81 mL/min >60 [facility] Work Phone: Comment on above: Non- GFR Calc Serum or plasma calcium og urement (mass/volume)on 11-10-2021 Calcium [Mass/Vol] 9.8 mg/dL 8.5-10.1 [facility] Work Phone: Serum or plasma cholesterol in HDL measurement (mass/volume)on 11-10-2021 Cholesterol in HDL [Mass/Vol] 55 mg/dL [facility] Work Phone: Comment on above: The drugs N-Acetylcy steine and Metamizole may falsely depress this assay. Reference Range HDL <40 mg/dL Low HDL Cholesterol HDL >or= 60 mg/dL High HDL Cholesterol Serum or plasma cholesterol in VLDL measurement (mass/volume)on 11-10-2021 Cholesterol in VLDL [Mass/Vol] 24 mg/dL 5-40 [facility] Work Phone: Serum or plasma creatinine m easurement (mass/volume)on 11-10-2021 Creatinine [Mass/Vol] 0.75 mg/dL 0.55-1.02 [facility] Work Phone: Comment on above: The validity of the calculated GFR & GFRAA in patients over 70 years has not been determined. Clinical correlation is essential. Serum or plasma low density lipoprotein (LDL) cholesterol measurement (mass/volume)on 11-10-2021 Cholesterol in LDL [Mass/Vol] 313 mg/dL 0-130 [facility] Work Phone: Serum or plasma urea nitroge n measurement (mass/volume)on 11-10-2021 Urea nitrogen [Mass/Vol] 18 mg/dL 7-18 [facility] Work Phone: Thin prep Papanicolaou smear with manual screeningon 11-10-2021 Thin prep Papanicolaou smear with manual screening 7 5-15 [facility] Work Phone: CNCOon 03-18-2017 [facility] ID: [id number]: Mammography CoordinatorService: (none)Author Type: PhysicianType: LetterFiled: 03/22/2017 11:32 PMNote Text:March 18, 2017 PID: [id number] [place] [address] Rashmi Velásquez [place] [address]Jkxy Ms. Nunez,We are pleased to inform you that the results of your recent breastimaging exam on 03/18/2017 are normal. Early detection of cancer is veryimportant. We also understand recommendations regarding breast cancerscreening are controversial. Please discuss with your primary careprovider which strategy is best for you and whether a mammogram is rightfor you.Your imaging studies and report will [facility] and are available for yourcontinuing care.Thank you for allowing us to help in meeting your health care needs.Sincerely,Dr. Drummondpreerasmo RadiologistWCHI St. [facility] (Normal over 40) Normal [facility] SCREENINGon 03-18-2017 [facility] SCREENING * * *Final Report* * *DATE OF EXAM: Mar 18 2017 8:52AM WRW [id number] - [facility] SCREENING / REASON: multiple diagnoses * * * * Physician Interpretation * * * *RESULT: #[id number] - [facility] SCREENINGBILATERAL DIGITAL SCREENING MAMMOGRAM WITH CAD: 03/18/2017HISTORY: Screening Mammogram - patient reports NO breast symptoms /priors available for comparison.RESULT:TECHNI QUE: The study was acquired using full field digital technology and interpreted from soft copy.Current study was also evaluated with a Computer Aided Detection (CAD).Comparison is made to exams dated: 03/04/2016 mammogram, 02/27/2015 mammogram, and 02/20/2014 mammogram - [facility].There are scattered fibroglandular elements in both breasts.There are post operative findings in the left breast.No significant masses, calcifications, or other findings are seen in either breast.There has been no significant interval change.IMPRESSION: NEGATIVEThere is no mammographic evidence of malignancy.A 1 year screening mammogram is recommended. The exam was reviewed by a staff physician.Krystal Denis M.D.ch,alverto/sulaiman:03/18/20 17 10:01:18Imaging Technologist: Anjelica BOWEN(John)(Darrell), [facility] sent: Normal over 40Mammogram BI-RADS: 1 NegativeTranscriptionist : OrenradTranscribe Date/Time: Mar 18 2017 8:52ADictated by: JACIEL DENIS MDThis examination was interpreted and the report reviewed and electronically signed by: KRYSTAL SANCHEZ MD on Mar 18 2017 10:01AM EST Normal [facility] PROGRESSon 03-18-2017 PROGRESS HNO ID: [id number]: Angélica Sheppard RtService: (none)Author Type: (none)Type: Progress NotesFiled: 03/18/2017 8:54 AMNote Text: Radiology Service Progress NotePATIENT NAME: Viki NunezMRN: [id number] OF SERVICE: March 18, 2017TIME: 8:30 AMPATIENT IDENTITY VERIFICATION COMPLETED USING TWO (2) METHODS: Patientconfirmed name verbally and Date of .PATIENT GENDER DATA: Female. status: : NoBreastfeeding status: NO.PATIENT RELEVANT IMPLANT DATA REVIEWED: Not ApplicableRADIOLOGY DEPARTMENT: [facility] mammogramPERIPHERAL IV DATA: Not applicableSIGNED BY: Angélica Sheppard RtS2016 8:30 AM Normal [facility] Vital Signs Date Time Vital Sign Value Performing Clinician Jimbo moeller 11-22-2024 08:30-0400 Body height 154.[address] Angelique Herrera MD Work Phone: [facility] 11-22-2024 08:30-0400 Body mass index (BMI) [Ratio] 23.8 kg/m2 Dr. Angelique Herrera MD Work Phone: [facility] 11-22-2024 08:30-0400 Body weight 57.[address] Angelique Herrera MD Work Phone: [facility] 11-22-2024 08:30-0400 Diastolic blood pressure 65 mm[Hg] Dr. Angelique Herrera MD Work Phone: [facility] 11-22-2024 08:30-0400 Heart rate 73 /min Dr. Angelique Herrera MD Work Phone: [facility] 11-22-2024 08:30-0400 Respiratory rate 18 /min Dr. Angelique Herrera MD Work Phone: [facility] 11-22-2024 08:30-0400 SaO2% (BldA) [Mass fraction] 97 % Dr. Angelique Herrera MD Work Phone: [facility] 11-22-2024 08:30-0400 Systolic blood pressure 115 mm[Hg] Dr. Angelique Herrera MD Work Phone: [facility] 12-17-2022 14:23-0400 Body height 154.[address] [facility] Encounters Encounter Date Encounter Type Care Provider Facility Start: 03-26-2025 End: 03-26-[address] Angelique Herrera MD Work Phone: -[facility] Start: 03-26-2025 End: 03-26-[address] Ninoska Sales MD -[facility] Start: 03-26-2025 End: 03-26-2025 ambulatory Angelique Herrera Facility:[facility] Start: 01-02-2025 End: 01-02-[address] Angelique Herrera MD Work Phone: -[facility] Start: 01-02-2025 End: 01-02-2025 Patient encounter procedure Anjel Christinbridget CARD FEEDER-C -[facility] Work Phone: Start: 01-02-2025 End: 01-02-2025 ambulatory Anjel McMorrow CARD FEEDER Facility:[facility] Start: 12-01-2024 End: 12-01-[address] Angelique Herrera MD Work Phone: [facility] Work Phone: Start: 12-01-2024 End: 12-01-[address] Angelique Herrera MD -[facility] Start: 12-01-2024 End: 12-01-2024 ambulatory Angelique Herrera Facility:[facility] Start: 11-22-2024 End: 11-22-[address] Jw Camacho MD -[facility] Work Phone: Start: 11-22-2024 End: 11-22-[address] Angelique Herrera MD Work Phone: [facility] Work Phone: Start: 03-03-2023 End: 03-03-2023 ambulatory [facility] Work Phone: Start: 03-03-2023 End: 03-03-2023 Patient encounter procedure [facility]-Laboratory, Specimen Work Phone: Start: 02-12-2023 End: 02-12-2023 ambulatory [facility] Start: 02-09-2023 End: 02-09-2023 ambulatory [facility] Work Phone: Start: 02-09-2023 End: 02-09-2023 Discharged [facility]Physical Therapy Work Phone: Start: 12-22-2022 Registered [facility] Start: 12-17-2022 End: 12-17-2022 ambulatory [facility] Work Phone: Start: 12-17-2022 End: 12-17-2022 Patient encounter procedure [facility]-Outpatient Breast Imaging Start: 12-08-2022 End: 12-08-2022 [facility] Start: 11-23-2022 End: 11-23-2022 [facility] Start: 11-10-2021 End: 11-10-2021 Patient encounter [facility] Start: 03-18-2017 End: 03-18-2017 [facility] TAD ZELAYA [facility] Kim Procedures Date Procedure Procedure Detail Performing Clinician [...] study results 12 Lead EKG performed by KEVIN [facility] Hepatic function panel [facility] Lipid 1996 panel - Serum or Plasma [facility] Payers Date Payer Category Payer Self-pay [id number] 2015 Medicare [id number] 2015 Unknown [id number] Unknown [id number] Unknown [id number] Unknown [id number] [id number] [id number] Unknown [id number] [id number] [id number] Social History Date Type Detail Facility [facility]: [facility] Start: 1950 Sex Assigned At Female [facility] Start: 06-11-2020 [facility] Sex Female [facility] Evaluation note 11-22-2024 Note Date & Type Note Facility 11-22-2024 Evaluation note Diagnosis Onset Date Resolution Family history of sudden cardiac acute November 22, 2024 8:26am Hyperlipidemia acute November 22, 2024 8:26am Hypertension chronic November 22 8:26am [facility] Work Phone: Progress note 11-22-2024 Note Date & Type Note Facility 11-22-2024 Progress note [facility] Progress note 11-22-2024 Note Date & Type Note Facility 11-22-2024 Progress note Note Date/Time November 22, 2024 9:10am [facility] [address] [place] [address] OFFICE VISIT Date of Service: 11/22/24 MR#: [id number] Acct: [id number] Name: VIKI NUNEZ Rep #: [id number] : 1950 Provider: Dr. Don Camacho MD Age/Sex: 74/F Location: [facility] Status: Signed with Addenda ADDENDUM by Dr. [...] Orders: Orders 12 Lead EKG performed by [facility] Today E78.5 - Hyperlipidemia, unspecified Lipid Profile [...] 2023 total cholesterol was 403 HDL 52 LSR422 and triglycerides 141. There is not a [...] room air Intake Visit Reasons: HDL (Javier) Rn Allergy Required: No Accompanied by: Self Is patient in pain?: No Allergies Miylrll-XAI-[id number] Reductase Inhibitor Adverse Reaction (Verified 11/22/24 08:30) [...] Q2W #2 mL 11/22/24 Rx pen injector (Chaitanya Lo) Have you fallen in the past year?: [...] saavedra MD> Date _ Jw Camacho MD Cosigner Signature: Date (if applicable) CC: Dr. Angelique Herrera MD ~ [facility] [employer] Work Phone: Discharge summary 02-09-2023 Note Date & Type Note Facility 02-09-2023 Discharge summary Note Date/Time February 09, 2023 9:5 1am [facility] Physical Therapy [facility] [address] [place] [address] [address] [place] [address] / REHABILITATION SERVICES DISCHARGE SUMMARY MR#: [id number] Acct: [id number] Name: VIKI NUNEZ Rep #: [id number] : 1950 72 From: Kimberly De Paz Referring Dr.: Dr. Angelique Herrera MD Status: REG RCR Insurance: MEDICARE PART A B [employer] [facility] Discharge Summary D/C summary: It has been [...] PT to HEP. Pt to go to about her B achilles issues D/C Information Discharge Comments: DC PT to [facility] d/c sentence: If there are questions or concerns regarding this patient's physical therapy, please feel free to call me at [phone]. Thank you for the referral of thispatient. Sincerely, GINNY West Balance/Gait/Functional tests Balance/Special Test Scores Oswestry Low Back Score: 0 <Electronically signed by Kimberly Gonsales MPT> 02/09/23 0951 CC: Dr. Angelique Herrera MD ~ Signed [facility] Work Phone: Discharge summary 01-31-2023 Note Date & Type Note Facility 01-31-2023 Discharge summary Note Date/Time January 04, 2023 10:28 am [facility] [address] [place] [address]. [address] [place] [address] / REHABILITATION SERVICES DISCHARGE SUMMARY MR#: [id number] Acct: [id number] Name: VIKI NUNEZ Rep #: [id number] : 1950 72 From: Cert. VILMA KruseT, OCS Referring Dr.: Dr. Angelique Herrera MD Status: REG RCR Insurance: MEDICARE PART A B [employer] [facility] Discharge Summary D/C summary: It has been my pleasure to treat VIKI NUNEZ referred by Dr. Angelique eHrrera MD, with the diagnosis of SI Pain [...] please feel free to call me at [phone]. Thank you for the referral of thispatient. Sincerely, Jason Jurado, PT, Cert MDT, OCS Balance/Gait/Functional tests Balance/Special Test Scores Oswestry Low Back Score: 25 <Electronically signed by Jason Jurado PT, Cert. BELIA, OCS> 01/31/23 1703 CC: Dr. Angelique Herrera MD ~ JLA Signed [facility] Work Phone: Evaluation note Note Date & Type Note Facility Evaluation note No assessment information availa ble [facility] Work Phone: Evaluation note Note Date & Type Note Facility Evaluation note Diagnosis Onset Date Resolution Family history of sudden cardiac acute November 22, 2024 8:26am Hyperlipidemia acute November 22, 2024 8:26am Hypertension chronic November 22 8:26am [facility] Work Phone: Reason for referral (narrative) Note Date & Type Note Facility Reason for referral (narrative) No reason for referral information available [facility] Work Phone: Summary Purpose Family History [...] Yes January 19, 2019 10:12am 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 Yes January 19 10:12am Chief Complaint and Reason for Visit Chief Complaint Admit Date HDL (Marceliff) November 22, 2024 8:26a m SCREENING January 02, 2025 3:38p m Reason for Visit Admit Date Family history of sudden cardiac M ay 2024 8:26am Hyperlipidemia November 22, 2024 8:26a m Hypertension November 22, 2024 8:26a m Chief Complaint SACROILIAC PAIN SCREENING, POSTMENOPAUSAL SACROILIAC PAIN/RX HERE Chief Complaint Admit Date HDL (Yaritzalliff) May 21st, 2025 8:26a m Chief Complaint Admit Date SCREENING January 02, 2025 3:38p m Additional Source Comments INFORMATION SOURCE (unrecogn ized section and content) DATE CREATED AUTHOR 12/29/2017 [facility] DATE CREATED AUTHOR AUTHOR'S ORGANIZ ATION 02/13/2023 [facility] DATE CREATED AUTHOR AUTHOR'S ORGANIZ ATION 04/07/[address] [facility] Goals (unrecognized section and content) Goals [...] January 02, 2025 End: January 02, 2025 Anjel Adams CARD FEEDER, CARD FEEDER-C Attending Provider Active Start: January 02, 2025 End: January 02, 2025 Anjel Adams CARD FEEDER, CARD FEEDER-C Referring Provider Active Start: January 02, 2025 End: January 02, 2025 Team Status: Active Member Role/Relationship Status Dates Dr. Angelique Herrera MD Primary care physician Active Team Status: Inactive Member Role/Relationship Status Dates Dr. Angelique Herrera MD Primary care physician Active Start: January 02, 2025 End: January 02, 2025 Anjel Adams CARD FEEDER, CARD FEEDER-C Attending physician Active Start: January 02, 2025 End: January 02, 2025 Anjel Wallerflorissantkristie CARD FEEDER, CARD FEEDER-C Referring Provider Active Start: January 02, 2025 End: January 02, 2025 Team Status: Inactive Member Role/Relationship Status Dates Dr. Angelique Herrera MD Primary care physician Active Start: March 26, 2025 End: March 26, 2025 Ninoska Sales MD Attending physician Active Star t: March 26, 2025 End: March 26, 2025 FOR RECORDS PERTAINING TO PATIENTS WHO [...] BE BASED ON THE PRIMARY CLINICAL RECORDS. [facility]. provides no warranty or guarantee of the accuracy or completeness of information in this document.
[2025-05-28 00:41] LABS: Troponin T High Sensitivity 406 ng/L (<=14)
[2025-05-28] MEDS: Nitroglycerin Oint 1 INCH PACKET TD (01:15)
--- NOTE | 2025-05-28 01:30 | EDS_ITS ---
HPI History of Present Illness Chief Complaint: Chest Pain Informant: patient and friend Narrative Narrative: Patient is a 75-year-old female with past medical history of hypertension and hyperlipidemia. She states she was laying in bed on May 23 got midsternal chest discomfort described as a pressure and shortness of breath. She states this lasted for 10 minutes or so and then resolved. She states that today she was out walking this morning and the symptoms reoccurred however they lasted about 5 minutes and then resolved. This evening while lying in bed once again she had the third episode of chest pressure with shortness of breath. She reports that her brothers and father both had coronary disease and had heart attacks and in their late 50s early 60s. She states with her recurrent symptoms and family history she is concerned that this is cardiac in nature and therefore comes in for evaluation She does state that upon arrival to the ER there has been spontaneous improvement of her symptoms but not complete resolution. [facility] Medical History Colon polyp Hyperlipidemia Hypertension Giant cell tumor of tendon sheath Hearing problem Breast cancer Breast lump Bone fracture Home Medications ?Medication ?Instructions ?Recorded ?Last Taken ?Type hydrochlorothiazide 25 mg tablet 25 mg PO DAILY 01/19/19 History aspirin 81 mg tablet,delayed 81 mg PO QDAY 11/13/24 Un known History release (Adult Low Dose Aspirin) glucosamine-chondroitin 250 mg-200 2 tab PO QDAY 11/13 Unknown History mg tablet (Osteo Bi-Flex) lisinopril 40 mg tablet 40 mg PO QDAY 11/13/24 Unkno wn History melatonin 10 mg capsule 10 mg PO HS PRN sleep Unknown History zolpidem 10 mg tablet (Ambien) 10 mg PO QHS 11/13/24 U nknown History evolocumab 140 mg/mL subcutaneous 140 mg subcut Q2W #2 mL 11/22/24 Unknown Rx pen injector (Repangela Lo) Allergy/AdvReac Type Severity Reaction Status Date / Time [id number] Reductase AdvReac myalgia Verified 05/27/25 23:21 Inhibitor Family History Father , age 58 Hypertension CAD (coronary artery disease) Mother Diabetes Myocardial infarction Brother , age 62 CAD (coronary artery disease) Brother , age 64 CAD (coronary artery disease) Sister CAD (coronary artery disease) Sister Hx of CABG CAD (coronary artery disease) Brother Myocardial infarction Brother Myocardial infarction Surgical History History of lumpectomy of left breast Social History Smoking Status: Never smoker alcohol intake: never substance use type: does not use additional social history: DOES TAKE ASPIRIN NEEDED DOES TAKE IBUPROFEN NEEDED ROS ROS ED Constitutional Constitutional ED: Denies chills, fever(s) or sweats Eyes Eyes: Denies change in vision ENT ENT ED: Denies sore throat Cardiovascular Cardiovascular: Reports chest pain; Denies palpitations or racing heartbeat Respiratory/Chest Respiratory/Chest: Reports dyspnea; Denies cough Gastrointestinal Gastrointestinal: Denies abdominal pain, diarrhea, nausea or vomiting Musculoskeletal Musculoskeletal: Denies back pain Integumentary Denies rash Neurologic Neurologic: Denies headache(s) Hematologic/Lymphatic Hematologic/Lymphatic: Denies easy bleeding or easy bruising EXAM Physical Exam Const Vital Signs: 05/27/25 23:21 05/27/25 23:57 05/28/25 00:21 Temperature 97 F L Temperature Source Temporal Pulse Rate 92 73 Respiratory Rate 20 H 16 Respiratory Effort Normal Non-Labored Blood Pressure 174/76 H 143/72 H Blood Pressure Mean 108 95 Pulse Ox 98 97 Oxygen Delivery Method Room Air Room Air 05/28/25 01:00 05/28/25 01:15 Temperature Temperature Source Pulse Rate 76 78 Respiratory Rate 20 H Respiratory Effort Blood Pressure 139/75 H 152/82 H Blood Pressure Mean 96 Pulse Ox 97 Oxygen Delivery Method Room Air Positive well nourished and well developed General Appearance ED: well developed; Negative for pallor HEENT HEENT Narrative: Normocephalic atraumatic Eyes PERRL and EOMs intact bilaterally General Eye ED: Negative for scleral icterus Neck supple and no JVD Neck Narrative: No nuchal rigidity or meningeal signs Chest Wall palpation of chest normal Chest Narrative: No bony deformity or subcutaneous emphysema noted Resp normal respiratory effort and clear to auscultation bilaterally Resp Narrative: No nasal flaring retractions tachypnea or accessory muscle use Cardio regular rate and regular rhythm Rate: other Other Details: Heart is regular rate and rhythm with grade 3 out of 6 systolic murmur Radial and carotid pulses are equal and symmetric No carotid bruit noted GI normal to inspection, nondistended, normoactive bowel sounds, non-tender, non- distended and no masses GI Narrative: No voluntary guarding or rigidity or pulsatile mass No peritoneal signs Auscultation: normoactive bowel sounds Palpation: soft Extremity normal to inspection Extremity Narrative: No asymmetric edema no pitting edema negative Homans' sign bilaterally Neuro oriented x3, CN's II-XII intact bilaterally and no sensory deficits noted Sensorium / Orientation: alert Motor Exam: strength 5/5 throughout Psych mental status grossly normal Skin no rashes or lesions noted and no wounds General Skin Exam: Negative for jaundice or pallor MDM MDM MDM Narrative Medical decision making narrative: Patient arrived to the ER hypertensive but has a past medical history of this. With her symptoms of chest discomfort and shortness of breath as well as multiple risk factors there is high concern that her symptoms are related to acute coronary syndrome. Secondary to this an EKG was obtained. It revealed ST segment depression mainly in leads V2 through V6 with mild depression in leads II and aVF. This EKG was compared to previous from November of this year as well as 2023 and these depressions are new when compared. With concern that patient is now having unstable angina or non-STEMI basic blood work was obtained. She was given 324 mg of baby aspirin as well as 1 sublingual nitro. After receiving the sublingual nitro she reported complete resolution of her pain but the ST segment depression remained on the phototypesetting equipment monitor. Lab work revealed a troponin of 406 which would correlate with ACS. The phototypesetting equipment monitor revealed no cardiac dysrhythmia and the remainder of her labs showed no signs of acute blood loss anemia acute kidney injury or clinically significant electrolyte abnormality. Chest x-ray also revealed no acute findings such as pneumonia or pneumothorax as a ventral cause for her chest discomfort. The patient was ordered an inch of Nitropaste as the sublingual removed the pain completely. However as the troponin was elevated at 406 which correlates with her symptoms and EKG the case was discussed with cardiology on-call. Based on her risk factors EKG and troponin they recommend she be placed on a nitro drip as well as heparin drip. The plan will be for heart cath later today. Secondary to this the case was discussed with the hospitalist who agrees to accept the patient for continued care. The patient was informed of the plan of action and she is agreeable to it. The patient has remained hemodynamically stable for her ER stay. History & Record Review Discussion w/independent historian: Patient and Friend Lab Data Attestation: I reviewed the patient's lab results. Labs: Laboratory Results - last 24 hr 05/27/25 23:38 WBC 8.9 RBC 4.16 L Hgb 12.9 Hct 38.3 MCV 92.1 MCH 31.0 MCHC 33.7 RDW Std Deviation 41.8 RDW Coeff of Sanjay 12.2 Plt Count 297 MPV 9.3 Immature Gran % (Auto) 0.200 Neut % (Auto) 56.1 Lymph % (Auto) 31.5 Humphreys % (Auto) 8.4 Eos % (Auto) 3.0 Baso % (Auto) 0.8 Absolute Neuts (auto) 5.0 Absolute Lymphs (auto) 2.80 Nucleated RBC % 0 PT 13.0 INR 1.0 APTT 29.4 Sodium 140 Potassium 3.5 Chloride 101 Carbon Dioxide 24.3 Anion Gap 15 BUN 23 H Creatinine 0.87 Estim Creat Clear Calc 42.16 L Est GFR (MDRD) Non-Af 70 BUN/Creatinine Ratio 26.9 H Glucose 118 H Calcium 10.0 Magnesium 2.0 Troponin T High Sens 406 H* Radiography Diagnostic Testing: Clinical Impression(s) from Imaging Studies Chest X-Ray 05/27/25 00:15 IMPRESSION: As above. Reading Location: [facility] Chest x-ray as interpreted by the emergency medicine physician reveals no acute infiltrate pneumothorax or pleural effusion or widening of the mediastinum Management Discussion w/another healthcare provider: Hospitalist and Veneer [employer]ader Discharge Plan Dx/Rx/DC Orders Clinical Impression: Hypertension, Hyperlipidemia, Acute non-ST elevation myocardial infarction (NSTEMI) Disposition Disposition: Acute Care Hospital [facility] Discharge Date/Time: 05/28/25 02:57
--- NOTE | 2025-05-28 01:43 | HP.PCM.HOS_ITS ---
HPI - General General Date of Admission: 05/28/25 Date of Service: 05/28/25 Chief Complaint: Chest pain HPI Narrative FATOUMATA NUNEZ, is a 75 F who presented to emergency department [facility] on 05/27/2025 with a chief complaint of chest pain. Patient initially had symptoms on 05/23/2025 that resolved after about 10 minutes. She had recurrent episode with exertion that resolved with rest on 05/26/2025 and then on 05/27/2025 she had recurrent chest pain in the evening while she was lying so she decided to come in. She states she think she was in denial. She has a very strong family history of coronary disease and she states she is the only one of her siblings but is not had a myocardial infarction. Both of her parents also had coronary disease. Two of her brothers in her 60s from coronary disease and her father at 58 from coronary artery disease. She previously has not tolerated statins due to myalgias. At the time my evaluation her chest pain had resolved. She stated was substernal and burning in nature. She had no radiation but did have associated shortness of breath. No associated diaphoresis or nausea/vomiting. She has no previous cardiac history. She does take aspirin 81 mg daily. Vital signs on presentation showed temperature of 97.0, heart rate was 92, respiratory rate was 20, blood pressure was 174/76 with a repeat of 143/72 and pulse ox was 98% on room air. CBC was unremarkable. Coags were normal. Chemistry panel showed just a mildly elevated BUN at 23 and normal electrolytes. Creatinine was normal at 0.87. Glucose is 118 nonfasting. Magnesium was normal 2.0. Her initial troponin was 406. Chest x-ray was unremarkable for acute findings. EKG showed ST depression in a greater than 1 mm in the anterior lateral leads most notably V3 through V6. Given diagnosis of NSTEMI, cardiology was consulted by the emergency department and they recommended ongoing treatment with heparin and nitroglycerin with cardiac catheterization to be done on 05/28/2025. [facility] Medical History Colon polyp Hyperlipidemia Hypertension Giant cell tumor of tendon sheath Hearing problem Breast cancer Breast lump Bone fracture Home Medications ?Medication ?Instructions ?Recorded ?Last Taken ?Type hydrochlorothiazide 25 mg tablet 25 mg PO DAILY 01/19/19 History aspirin 81 mg tablet,delayed 81 mg PO QDAY 11/13/24 Un known History release (Adult Low Dose Aspirin) glucosamine-chondroitin 250 mg-200 2 tab PO QDAY 11/13 Unknown History mg tablet (Osteo Bi-Flex) lisinopril 40 mg tablet 40 mg PO QDAY 11/13/24 Unkno wn History melatonin 10 mg capsule 10 mg PO HS PRN sleep Unknown History zolpidem 10 mg tablet (Ambien) 10 mg PO QHS 11/13/24 U nknown History evolocumab 140 mg/mL subcutaneous 140 mg subcut Q2W #2 mL 11/22/24 Unknown Rx pen injector (Chaitanya Lo) Allergy/AdvReac Type Severity Reaction Status Date / Time [id number] Reductase AdvReac myalgia Verified 05/27/25 23:21 Inhibitor Family History Father , age 58 Hypertension CAD (coronary artery disease) Mother Diabetes Myocardial infarction Brother , age 62 CAD (coronary artery disease) Brother , age 64 CAD (coronary artery disease) Sister CAD (coronary artery disease) Sister Hx of CABG CAD (coronary artery disease) Brother Myocardial infarction Brother Myocardial infarction Surgical History History of lumpectomy of left breast Social History Smoking Status: Never smoker alcohol intake: never substance use type: does not use additional social history: DOES TAKE ASPIRIN NEEDED DOES TAKE IBUPROFEN NEEDED ROS Constitutional Constitutional: Denies anorexia, change in weight, chills, fatigue, fever(s), malaise, night sweats, weakness or other Eyes Eyes: Denies blurry vision, change in eye color, change in vision, discharge from eye(s), double vision, erythema, eye pain, loss of vision or other ENT HEENT: Denies abnormal hearing, dysphagia, ear pain, epistaxis, headache(s), hearing loss, nasal congestion, nasal discharge, post nasal drip, sinus pressure, sore throat or other Cardiovascular Cardiovascular: Reports chest pain and other Details: Shortness of breath at rest associated with chest pain ; Denies claudication, dyspnea on exertion, edema, lightheadedness, orthopnea, palpitations, paroxysmal nocturnal dyspnea, rapid heart rate or syncope Respiratory/Chest Respiratory/Chest: Denies cough, dyspnea, excessive phlegm production, hemoptysis, productive cough, shortness of breath at rest, shortness of breath with exertion, wheezing or other Gastrointestinal Gastrointestinal: Denies abdominal pain, coffee ground emesis, constipation, diarrhea, dyspepsia, hematemesis, hematochezia, loose stools, melena, nausea, vomiting or other Genitourinary Genitourinary: Denies burning urination, difficulty urinating, dysuria, hematuria, nocturia, urinary frequency, urinary hesitancy, urinary incontinence, urinary urgency or other Musculoskeletal Musculoskeletal: Denies arthralgias, back pain, joint pain, joint stiffness, joint swelling, myalgias, neck pain or other Neurologic Neurologic: Denies abnormal gait, abnormal speech, confusion, disequilibrium, dizziness, focal weakness, headache(s), numbness, paresthesias, seizure-like activity, seizures, syncope, tingling, tremor(s) or other Psychiatric Psychiatric: Denies anxiety, depression, homicidal ideation, suicidal ideation or other Endocrine Endocrinology: Denies change in body appearance, cold intolerance, excessive sweating, heat intolerance, polydipsia, polyuria or other Hematologic/Lymphatic Hematologic/Lymphatic: Denies anemia, easy bleeding, easy bruising, lymphadenopathy or other Allergic/Immunologic Allergic/Immunologic: Denies rhinitis, hives, eczemia, asthma or other Vital Signs Vital Signs Vital Signs: 05/27/25 23:21 05/27/25 23:57 05/28/25 00:21 Temperature 97 F L Temperature Source Temporal Pulse Rate 92 73 Respiratory Rate 20 H 16 Respiratory Effort Normal Non-Labored Blood Pressure 174/76 H 143/72 H Blood Pressure Mean 108 95 Pulse Ox 98 97 Oxygen Delivery Method Room Air Room Air 05/28/25 01:00 05/28/25 01:15 Temperature Temperature Source Pulse Rate 76 78 Respiratory Rate 20 H Respiratory Effort Blood Pressure 139/75 H 152/82 H Blood Pressure Mean 96 Pulse Ox 97 Oxygen Delivery Method Room Air Weight Weight: 57 kg Body Mass Index (BMI) 23.7 Physical Exam Const alert, oriented x3, no apparent distress, average body habitus and well nourished Constitutional Narrative: Very pleasant, older, white female, sitting up in bed, appears younger than stated age, sister at bedside, currently appears comfortable, nontoxic appearing General Appearance: cooperative HEENT normocephalic, head/scalp atraumatic, hearing grossly normal bilaterally and moist oral mucous membranes HEENT Narrative: Mallampati is 2, no thrush Eyes conjunctivae normal Eyes Narrative: No scleral icterus Neck supple Neck Narrative: Trachea midline Resp normal respiratory effort, no retractions, no use of accessory muscles and clear to auscultation bilaterally Auscultation: Negative for crackles, rhonchi or wheezes Cardio regular rate, regular rhythm, S1 normal heart sound, S2 normal heart sound, no rub, no gallops and no clicks; Negative for no murmurs Cardio Narrative: Systolic murmur 3 out of 6 loudest at left lower sternal border GI normal to inspection, nondistended, normoactive bowel sounds, soft to palpation and non-tender Extremity no clubbing, cyanosis or edema Extremity Narrative: 2+ radial and pedal pulses Neuro moves all extremities and no focal motor deficits Speech: speech normal Psych affect normal Psych Narrative: Eye contact is good, patient interacts appropriately Results Lab / Micro Data 05/27/25 23:38 05/27/25 23:38 Labs: Laboratory Results - last 24 hr 05/27/25 23:38: WBC 8.9, RBC 4.16 L, Hgb 12.9, Hct 38.3, MCV 92.1, MCH 31.0, MCHC 33.7, RDW Std Deviation 41.8, RDW Coeff of Sanjay 12.2, Plt Count 297, MPV 9.3, Immature Gran % (Auto) 0.200, Neut % (Auto) 56.1, Lymph % (Auto) 31.5, Blaine % (Auto) 8.4, Eos % (Auto) 3.0, Baso % (Auto) 0.8, Absolute Neuts (auto) 5.0, Absolute Lymphs (auto) 2.80, Nucleated RBC % 0, PT 13.0, INR 1.0, APTT 29.4, Sodium 140, Potassium 3.5, Chloride 101, Carbon Dioxide 24.3, Anion Gap 15, BUN 23 H, Creatinine 0.87, Estim Creat Clear Calc 42.16 L, Est GFR (MDRD) Non-Af 70, BUN/Creatinine Ratio 26.9 H, Glucose 118 H, Calcium 10.0, Magnesium 2.0, T roponin T High Sens 406 H* Imaging Radiology Impression Chest X-Ray 05/27/25 00:15 IMPRESSION: As above. Reading Location: [facility] Assessment & Plan Assessment/Plan (1) Acute non-ST elevation myocardial infarction (NSTEMI): PLAN: Plan NSTEMI - Patient with troponin elevation and ST depression in the anterior lateral leads most notably in V3 through V6 - Start heparin drip - Start nitro drip - Follow-up EKG--> hopeful for resolution of ST depression with nitro and heparin - Follow-up EKG after admission and initiation of drips - Check lipid panel - Continue home aspirin 81 mg daily - Start atorvastatin 80 mg daily--> patient has had tolerance issues previously due to myalgias but important for clear trophic effects at this time - Hold metoprolol to assess for signs of ejection fraction reduction -Continue home losartan - Check echocardiogram - Cardiology consultation - Patient does follow with cardiology already as an outpatient due to high risk and saw Dr. Camacho last on 11/22/2024 Essential hypertension - Continue home HCTZ - continue home lisinopril - On nitro drip for now so blood pressure control should to be improved - Hold off on beta-estela until LV function can be assessed Hyperlipidemia - Will start statin with atorvastatin 80 mg daily for plea atrophic effects and assess for tolerance - patient has previously had tolerance issues with statins may need alternative therapy - Will await cardiology input Osteoarthritis - Restart glucosamine/chondroitin at discharge Insomnia - Continue melatonin as needed - Continue home zolpidem DVT prophylaxis - Heparin drip CODE STATUS - Full code Charges/Coding Visit Charges Inpatient E&M: 28324 Init Hosp L2 JEREMY Risk Score for UA/STEMI Assesmment (YES = 1) Age > or = 65: Yes > or = 3 CAD risk factors (HTN, Hypercholesterolemia, Diabetes, family hx, current smoker): Yes Known CAD (Stenosis > or = 50%): No ASA used in past 7 days: Yes Severe angina (> or = 2 episodes in 24 hrs): Yes EKG ST change > or = 0.5mm: Yes Positive cardiac markers: Yes Score JEREMY Risk Score of mortality/ recurrent ischemic event over the next 14 days: 6- 7 = 40.9% - HIGH RISK
--- OUTSIDE RECORDS SUMMARY | 2025-05-28 01:48 | XMS RPT_ITS | CCD ---
Author Organization [facility] Inform ion Partnership [facility] Care Team Providers Care Truer Pinion And Wheel Name Role Phone TAD CANDELARIO (FOOD SERVICE DIRECTOR) Unavailable [employer], [facility] Primary Care Unavailable RODOLFO NAVARRETE Attending Unavailable Javier ESPARZA, Dr. Angelique Saavedra Primary Care Provider Javier ESPARZA, Dr. Angelique Saavedra Referring Provider Dr. Jw Camacho MD Attending Provider Javier ESPARZA, Dr. Angelique Saavedra Attending Provider McMorrow PROFESSOR IN FAMILY STUDIES-C, Anjel Attending Provider McMorrow PROFESSOR IN FAMILY STUDIES-C, Anjel Referring Provider Javier ESPARZA, Dr. Angelique Saavedra Primary Care Physician McMorrow PROFESSOR IN FAMILY STUDIES-C, Anjel Attending Physician Ninoska Sales MD Attending Physician Angelique Herrera Primary Care Unavailable Ninoska Sales Attending Unavailable McMorrow PROFESSOR IN FAMILY STUDIESAnjel Referring Unavailable McMorrow PROFESSOR IN FAMILY STUDIESAnjel Attending Unavailable Angelique Herrera Primary Care Unavailable Angelique Herrera Attending Unavailable Angelique Herrera Primary Care Unavailable Jw Camacho Attending Unavailable Angelique Herrera Referring Unavailable Angelique Herrera Primary Care Unavailable Allergies Allergy Classification Reported Allergen(s) Allergy Type Date of Onset Reaction(s) Facility (4 sources) Dktcovi-Mgc-Hxn Reductase Inhibitor Propensity to adverse reactions 5 myalgia [facility] (1 source) Ekiussf-Jmd-Aau Reductase Inhibitor Drug allergy (disorder) 5 [facility] Repository Medications Current Medications Medication Drug Class(es) [...] on 03-26-2025 Bilirubin.direct [Mass/Vol] 0.15 mg/dL 0.00-0.30 [facility] Bilirubin, totalOrdered By: Jw Camacho on 03-26-2025 Bilirubin [Mass/Vol] 0.40 mg/dL 0.00-1.30 [facility] Calculated very low density lipoprotein (VLDL) cholesterol measurementOrdered By: Ninoska Sales on 03-26-2025 Calculated very low density lipoprotein (VLDL) cholesterol measurement 19 mg/dL 5-40 [facility] LDL calc ser/plasOrdered By: Ninoska Sales on 03-26-2025 Cholesterol in LDL [Mass/Vol] 225 mg/dL [facility] Comment on above: Uvpojolrcy=955-942 m g/dL & Higher Egqn=078 mg/dL or greaterFriedwald Equation for LDL-C Laboratory - Chemistry and C hemistry - challengeOrdered By: Jw Camacho on 03-26-2025 AST [Catalytic activity/Vol] 21 U/L <32 [facility] Lipid Profileon 03-26-2025 CHOL:HDL 5.37 Normal [facility] Comment on above: Order Comment: Order Date: 01/02/25 Order Info: [id number] - LIPID Performed By: #### L 500.4100 #### [facility] [address] [place], [address] Cholesterol [Mass/Vol] 299 mg/dL High <=200 [facility] Comment on above: Order Comment: Order Date: 01/02/25 Order Info: [id number] - LIPID Result Comment: Chol esterol level, Desirable <200 mg/dL Borderline high cholesterol 200-239 mg/dL High cholesterol >=240 mg/dL Recommendations of the NCEP Adult Treatment Panel for the following risk-cutoff thresholds for the [place] population. Performed By: #### L 500.4100 #### [facility] [address] [place], [address] Cholesterol in HDL [Mass/Vol] 56 mg/dL Normal [facility] Comment on above: Order Comment: Order Date: 01/02/25 Order Info: [id number] - LIPID Result Comment: Lauren onal Cholesterol Education Program (NCEP) guidelines: <40 mg/dL: Low HDL-cholesterol (major risk factor for CHD) >= 60 mg/dL: High HDL-cholesterol (negative risk factor for CHD) HDL-cholesterol is affected by a number of factors, e.g. smoking, exercise, hormones, sex and age. Performed By: #### L 500.4100 #### [facility] [address] [place], [address] Cholesterol in LDL [Mass/Vol] 225 mg/dL Normal [facility] Comment on above: Order Comment: Order Date: 01/02/25 Order Info: [id number] - LIPID Result Comment: Bord qdeibv=224-303 mg/dL Higher Mqjo=258 mg/dL or greater Friedwald Equation for LDL-C Performed By: #### L 500.4100 #### [facility] [address] [place], [address] Cholesterol in VLDL [Mass/Vol] 19 mg/dL Normal 5-40 [facility] Comment on above: Order Comment: Order Date: 01/02/25 Order Info: [id number] - LIPID Performed By: #### L 500.4100 #### [facility] [address] [place], [address] Triglyceride [Mass/Vol] 93 mg/dL Normal [facility] Comment on above: Order Comment: Order Date: 01/02/25 Order Info: [id number] - LIPID Result Comment: The drugs N-Acetylcysteine and Metamizole may falsely depress this assay. Normal range: <150 mg/dL Borderline High: 150-199 mg/dL High: 200-499 mg/dL Very High: >500 mg/dL Performed By: #### L 500.4100 #### [facility] [address] [place], [address] Liver Profileon 03-26-2025 Albumin [Mass/Vol] 4.2 g/dL Normal 3.4-4.8 [facility] Comment on above: Performed By: #### L 500.3400 #### [facility] [address] [place], [address] ALK PHOS 103 U/L Normal 35-104 [facility] Comment on above: Performed By: #### L 500.3400 #### [facility] [address] [place], [address] ALT [Catalytic activity/Vol] 20 U/L Normal <=34 [facility] Comment on above: Performed By: #### L 500.3400 #### [facility] [address] [place], [address] AST [Catalytic activity/Vol] 21 U/L Normal <=31 [facility] Comment on above: Performed By: #### L 500.3400 #### [facility] [address] [place], [address] Bilirubin [Mass/Vol] 0.40 mg/dL Normal 0.00-1.30 [facility] Comment on above: Performed By: #### L 500.3400 #### [facility] [address] [place], [address] Bilirubin.direct [Mass/Vol] 0.15 mg/dL Normal 0.00-0.30 [facility] Comment on above: Performed By: #### L 500.3400 #### [facility] [address] [place], [address] Globulin (S) [Mass/Vol] 2.9 g/dL Normal 2.2-4.2 [facility] Comment on above: Performed By: #### L 500.3400 #### [facility] [address] [place], [place], [id number] T PROT 7.1 g/dL Normal 5.9-8.4 [facility] Comment on above: Performed By: #### L 500.3400 #### [facility] [address] [place], [place], [address] Screening total cholesterol/ high density lipoprotein (HDL) cholesterol ratioOrdered By: Ninoska Sales on 03-26-2025 Cholesterol.total/Chol esterol in HDL [Mass ratio] 5.37 {ratio} [facility] Serum globulin measurementOr dered By: Jw Camacho on 03-26-2025 Globulin (S) [Mass/Vol] 2.9 g/dL 2.2-4.2 [facility] Serum or plasma alanine fonseca otransferase (ALT) measurementOrdered By: Jw Camacho on 03-26-2025 ALT [Catalytic activity/Vol] 20 U/L <35 [facility] Serum or plasma albumin og urement (mass/volume)Ordered By: Jw Camacho on 03-26-2025 Albumin [Mass/Vol] 4.2 g/dL 3.4-4.8 [facility] Serum or plasma alkaline tyrone sphatase measurementOrdered By: Jw Camacho on 03-26-2025 ALP [Catalytic activity/Vol] 103 U/L 35-104 [facility] Serum or plasma cholesterol in HDL measurement (mass/volume)Ordered By: Ninoska Sales on 03-26-2025 Cholesterol in HDL [Mass/Vol] 56 mg/dL >40 [facility] Comment on above: National Cholesterol Education Program (NCEP) guidelines:<40 mg/dL: Low HDL-cholesterol (major risk factor for CHD)>= 60 mg/dL: High HDL-cholesterol (negative risk factor for CHD)HDL-cholesterol is affected by a number of factors, e.g. smoking, exercise, hormones, sex and age. Serum or plasma cholesterol measurement (mass/volume)Ordered By: Ninoska Sales on 03-26-2025 Cholesterol [Mass/Vol] 299 mg/dL High <201 [facility] Comment on above: Cholesterol level, D esirable <200 mg/dLBorderline high cholesterol 200-239 mg/dLHigh cholesterol >=240 mg/dLRecommendations of the NCEP Adult Treatment Panel for the following risk-cutoff thresholds for the [place] population. Total proteinOrdered By: True holly Camacho on 03-26-2025 Protein [Mass/Vol] 7.1 g/dL 5.9-8.4 [facility] Triglycerides measurementOrd ered By: Ninoska Sales on 03-26-2025 Triglyceride [Mass/Vol] 93 mg/dL <199 [facility] Comment on above: The drugs N-Acetylcy steine and Metamizole may falsely depress this assay. Normal range: <150 mg/dLBorderline High: 150-199 mg/dLHigh: 200-499 mg/dLVery High: >500 mg/dL Bone density reportOrdered B y: Luís Love on 01-03-2025 Study report Skeletal system DXA [facility] Imaging Services [address] [place], [place] [address] Dexa Bone Density Study MR#: [id number] Acct: [id number] Name: VIKI NUNEZ Rep #: [id number] : 1950 F 74 From: Pretty Love MD PCP: Dr. Angelique Herrrea MD Status: [facility] Study:Dexa Bone Density Study Date of Exam: 01/02/25 Exam# [id number] Ordering Dr: Anjel Adams PROFESSOR IN FAMILY STUDIES PROFESSOR IN FAMILY STUDIES-C PROCEDURE: DEXA BONE DENSITY STUDY 01/02/2025 REASON [...] Bone Density Study IMPRESSION: OSTEOPOROSIS. Reading Location: [id number] CC: Anjel Adams; Dr. Angelique Herrera MD ~ Air Defense Specialist: Signed [facility] Breast imaging reportOrdered By: Adriana Cash on 01-02-2025 Study report [facility] Imaging Services [address] [place] [id number] SCRN MAMM (CAD)W/HERBIE BILAT MR#: [id number] Acct: [id number] Name: VIKI NUNEZ Rep #: [id number] : 1950 F 74 From: Demario Mccauley MD PCP: Dr. Angelique Herrera MD Status: [facility] Study:SCRN MAMM (CAD)W/HERBIE BILAT Date of Exa m: 01/02/25 Exam# [id number] Ordering Dr: Anjel Adams NP, NP-C EXAM: [...] be mailed to the patient. Reading Location: [id number] CC: Anjel Adams; Dr. Angelique Herrera MD ~ Air Defense Specialist: Signed [facility] Dexa Bone Density Studyon Dexa Bone Density Study [facility] Imaging Services [address] [place], [place] [address] Dexa Bone Density Study MR#: [id number] Acct: [id number] Name: VIKI NUNEZ Rep #: [id number] : 1950 F 74 From: Luís Love MD PCP: Dr. Angelique Herrera MD Status: [facility] Study: Dexa Bone Density Study Date of Exam: 01/02/25 Exam# [id number] Ordering Dr: Anjel Adams NP, NP PROCEDURE: [...] Bone Density Study IMPRESSION: OSTEOPOROSIS. Reading Location: [id number] CC: Anjel Adams; Dr. Angelique Herrera MD Air Defense Specialist: Signed [facility] SCRN MAMM (CAD)W/HERBIE BILATo n 01-02-2025 SCRN MAMM (CAD)W/HERBIE BILAT [facility] Imaging Services [address] [place] [address] SCRN MAMM (CAD)W/HERBIE BILAT MR#: [id number] Acct: [id number] Name: VIKI NUNEZ Rep #: [id number] : 1950 F 74 From: Adriana Jernigan i, MD PCP: Dr. Angelique Herrera MD Status: [facility] Study: SCRN MAMM (CAD)W/HERBIE BILAT Date of Exam: 07/29 Exam# [id number] Ordering Dr: Anjel Adams NP, NP EXAM: [...] be mailed to the patient. Reading Location: [id number] CC: Anjel Adams; Dr. Angelique Herrera MD Air Defense Specialist: Signed [facility] Calculated very low density lipoprotein (VLDL) cholesterol measurementOrdered By: Anjel Ariskristie on 12-01-2024 Calculated very low density lipoprotein (VLDL) cholesterol measurement 21 mg/dL 5-40 [facility] Hemoglobin A1con 12-01-2024 HbA1c (Bld) [Mass fraction] 5.7 % Normal <=5.6 [facility] Comment on above: Order Comment: PER P T-JUST [facility] ORDER Order Date: 12/01/24 Order Info: [id number] - A1C Comments: screening diabetes Result Comment: Norm al < 5.7 % Prediabetic 5.7 - 6.4 % Diabetic >or= 6.5 % Please note range changes. Performed By: #### L 501.9985 #### [facility] [address] [place], [place], [id number] Hemoglobin A1c percentageOrd ered By: Anjel Ariskristie on 12-01-2024 HbA1c (Bld) [Mass fraction] 5.7 % <5.7 [facility] Comment on above: Normal < 5.7 % Predi abetic 5.7 - 6.4 % Diabetic >or= 6.5 % Please note range changes. LDL calc ser/plasOrdered By: Anjel Adams on 12-01-2024 Cholesterol in LDL [Mass/Vol] 353 mg/dL [facility] Comment on above: Ydnhzbbxad=349-584 m g/dL & Higher Fwxx=512 mg/dL or greater Lipid Profileon 12-01-2024 CHOL:HDL 8.04 Normal [facility] Comment on above: Order Comment: PER P T-JUST [facility] ORDER Order Date: 12/01/24 Order Info: [id number] - LIPID Comments: screening cholesterol Performed By: #### L 500.4100 #### [facility] [address] [place], [place], [address] Cholesterol [Mass/Vol] 427 mg/dL High <=200 [facility] Comment on above: Order Comment: PER P T-JUST [facility] ORDER Order Date: 12/01/24 Order Info: [id number] - LIPID Comments: screening cholesterol Result Comment: Chol esterol level, Desirable <200 mg/dL Borderline high cholesterol 200-239 mg/dL High cholesterol >=240 mg/dL Recommendations of the NCEP Adult Treatment Panel for the following risk-cutoff thresholds for the [place] population. Performed By: #### L 500.4100 #### [facility] [address] [place], [address] Cholesterol in HDL [Mass/Vol] 53 mg/dL Normal [facility] Comment on above: Order Comment: PER P T-JUST ORR ORDER Order Date: 12/01/24 Order Info: [id number] - LIPID Comments: screening cholesterol Result Comment: Lauren onal Cholesterol Education Program (NCEP) guidelines: <40 mg/dL: Low HDL-cholesterol (major risk factor for CHD) >= 60 mg/dL: High HDL-cholesterol (negative risk factor for CHD) HDL-cholesterol is affected by a number of factors, e.g. smoking, exercise, hormones, sex and age. Performed By: #### L 500.4100 #### [facility] [address] [place], [address] Cholesterol in LDL [Mass/Vol] 353 mg/dL Normal [facility] Comment on above: Order Comment: PER P T-JUST ORDER Order Date: 12/01/24 Order Info: [id number] - LIPID Comments: screening cholesterol Result Comment: Bord adhgxr=513-440 mg/dL Higher Pkhl=744 mg/dL or greater Performed By: #### L 500.4100 #### [facility] [address] [place], [address] Cholesterol in VLDL [Mass/Vol] 21 mg/dL Normal 5-40 [facility] Comment on above: Order Comment: PER P T-JUST ORR ORDER Order Date: 12/01/24 Order Info: [id number] - LIPID Comments: screening cholesterol Performed By: #### L 500.4100 #### [facility] [address] [place], [address] Triglyceride [Mass/Vol] 103 mg/dL Normal [facility] Comment on above: Order Comment: PER P T-JUST ORR ORDER Order Date: 12/01/24 Order Info: [id number] - LIPID Comments: screening cholesterol Result Comment: The drugs N-Acetylcysteine and Metamizole may falsely depress this assay. Normal range: <150 mg/dL Borderline High: 150-199 mg/dL High: 200-499 mg/dL Very High: >500 mg/dL Performed By: #### L 500.4100 #### [facility] [place], [address] Screening total cholesterol/ high density lipoprotein (HDL) cholesterol ratioOrdered By: Anjel Adams on 12-01-2024 Cholesterol.total/Chol esterol in HDL [Mass ratio] 8.04 {ratio} [facility] Serum or plasma cholesterol in HDL measurement (mass/volume)Ordered By: Anjel Adams on 12-01-2024 Cholesterol in HDL [Mass/Vol] 53 mg/dL >40 [facility] Comment on above: National Cholesterol Education Program (NCEP) guidelines:<40 mg/dL: Low HDL-cholesterol (major risk factor for CHD)>= 60 mg/dL: High HDL-cholesterol (negative risk factor for CHD)HDL-cholesterol is affected by a number of factors, e.g. smoking, exercise, hormones, sex and age. Serum or plasma cholesterol measurement (mass/volume)Ordered By: Anjel Adams on 12-01-2024 Cholesterol [Mass/Vol] 427 mg/dL High <201 [facility] Comment on above: Cholesterol level, D esirable <200 mg/dLBorderline high cholesterol 200-239 mg/dLHigh cholesterol >=240 mg/dLRecommendations of the NCEP Adult Treatment Panel for the following risk-cutoff thresholds for the [place] population. Triglycerides measurementOrd ered By: Anjel Adams on 12-01-2024 Triglyceride [Mass/Vol] 103 mg/dL <199 [facility] Comment on above: The drugs N-Acetylcy steine and Metamizole may falsely depress this assay. Normal range: <150 mg/dLBorderline High: 150-199 mg/dLHigh: 200-499 mg/dLVery High: >500 mg/dL 12 Lead EKG performed by [facility] on 11-22-2024 12 Lead EKG performed by [facility] [address] [place] [address] 12 Lead EKG performed by [facility] 11/22/241658 MR#: [id number] Acct: [id number] Name: VIKI NUNEZ Rep #: [id number] : 1950 74 From: Jw Camacho MD Attending Dr: Dr. Jw Camacho MD Status: DE P AMB Ordering Dr: Jw Camacho MD Date: 11/22/24 [place] [facility] [place] F C Admitted: BMS/12 Lead EKG performed by [facility] ECG Report Interpretation --Sinus Rhythm WITHIN NORMAL LIMITSElectronically signed on 11/22/2024 at 12:[address] Jw Camacho [employer] Version 8610 11/22/24 1207 Date Jw Camacho MD CC: Dr. Angelique Herrera MD Date Dictated: 11/22/241658 Date Transcribed: 11/22/241658 Air Defense Specialist: Signed Normal [facility] Cardiology Visit Reporton Cardiology Visit Report [facility] [address] [place] [address] OFFICE VISIT Date of Service: 11/22/24 MR#: [id number] Acct: [id number] Name: VIKI NUNEZ Rep #: [id number] : 1950 Provider: Dr. 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 Normal [facility] PT D/C Summary (1)on 024 PT D/C Summary (1) [facility] Physical Therapy [facility] [address] [place] [address] / REHABILITATION SERVICES DISCHARGE SUMMARY MR#: [id number] Acct: [id number] Name: VIKI NUNEZ Rep #: [id number] : 1950 74 From: Mckenzie Guillen PT. T, OCS Referring Dr.: Dr. Angelique Herrera MD Status: RE G RCR Insurance: MEDICARE PART A B [employer] [facility] Discharge Summary D/C summary: It has [...] please feel free to call me at [phone]. Thank you for the referral of this patient. Sincerely, Jason Jurado, PT, Cert T, OCS Balance/Gait/Functional tests Balance/Special Test Scores Quick DASH Score: 63.6350 06/07/24 1455 CC: Dr. Angelique Herrera MD FLAQUITA Signed Normal [facility] Culture, urineOrdered By: Dameon Rowe on 03-03-2023 Bacteria identified Cx Nom (U) Presumptive E. coli [facility] Office Visiton 02-12-2023 Follow-up visit [id number] Quentin Nunez er 1950 F Date Provider Department Center 02/12/2023 [id number] NAVARRETE [facility] WAD None No family history on file Level of Service:81800 [place] OFFICE/OUTPATIENT NEW LOW MDM 30-44 MINUTES Reason for Visit and Comments: New Patient [542] - Left Achilles Tendinitis Normal [facility] PATINSon 02-12-2023 PATINS Achilles Tendon: Eccentric [...] 3 12 3 15 3 Normal [facility] Progress Noteon 02-12-2023 Progress Note [facility] [address] [place] [address] Dept: [phone] Dept Chief Complaint Patient presents with New [...] prior to signing but minor errors in recycle driver may have occurred. Normal [facility] Basophil percentageOrdered B y: Dr. Herrera on 11-23-2022 Chloride [Moles/Vol] 106 mmol/L 98-107 [facility] Cholesterol [Mass/Vol] 380 mg/dL <200 [facility] Comment on above: <200 mg/dL Desirable 200-240 mg/dL Borderline >240 mg/dL High Risk Glucose [Mass/Vol] 105 mg/dL 74-106 [facility] Comment on above: Fasting Glucose resu lt from 100 to 125 mg/dL suggests IMPAIRED HOMEOSTASIS per A.D.A. criteria. Potassium [Moles/Vol] 3.9 mmol/L 3.5-5.1 [facility] Sodium [Moles/Vol] 141 mmol/L 136-145 [facility] Triglyceride [Mass/Vol] 96 mg/dL <199 [facility] Comment on above: The drugs N-Acetylcy steine and Metamizole may falsely depress this assay.Serum Triglycerides Reference Interval Normal <150 mg/dL Borderline high 150 - 199 mg/dL High 200 - 499 mg/dL Very High > or = 500 mg/dL Laboratory - Chemistry and C hemistry - challengeOrdered By: Dr. Herrera on 11-23-2022 ALT [Catalytic activity/Vol] 31 U/L 13-56 [facility] CO2 [Moles/Vol] 27.0 mmol/L 21.0-32.0 [facility] Urea nitrogen/Creatinine [Mass ratio] 34.4 mg/mg 10-20 [facility] No Panel InformationOrdered By: Dr. Herrera on 11-23-2022 Estimated GFR (MDRD) Amer 106 mL/min >60 [facility] Comment on above: GFR Calc Estimated GFR (MDRD) Non-Af Amer 88 mL/min >60 [facility] Comment on above: Non- GFR Calc Serum or plasma calcium og urement (mass/volume)Ordered By: Dr. Herrera on 11-23-2022 Calcium [Mass/Vol] 9.3 mg/dL 8.5-10.1 [facility] Serum or plasma cholesterol in HDL measurement (mass/volume)Ordered By: Dr. Herrera on 11-23-2022 Cholesterol in HDL [Mass/Vol] 56 mg/dL >40 [facility] Comment on above: The drugs N-Acetylcy steine and Metamizole may falsely depress this assay. Reference Range HDL <40 mg/dL Low HDL Cholesterol HDL >or= 60 mg/dL High HDL Cholesterol Serum or plasma cholesterol in VLDL measurement (mass/volume)Ordered By: Dr. Herrera on 11-23-2022 Cholesterol in VLDL [Mass/Vol] 19 mg/dL 5-40 [facility] Serum or plasma creatinine m easurement (mass/volume)Ordered By: Dr. Herrera on 11-23-2022 Creatinine [Mass/Vol] 0.70 mg/dL 0.55-1.02 [facility] Comment on above: The validity of the calculated GFR & GFRAA in patients over 70 years has not been determined. Clinical correlation is essential. Serum or plasma low density lipoprotein (LDL) cholesterol measurement (mass/volume)Ordered By: Dr. Herrera on 11-23-2022 Cholesterol in LDL [Mass/Vol] 305 mg/dL 0-130 [facility] Serum or plasma urea nitroge n measurement (mass/volume)Ordered By: Dr. Herrera on 11-23-2022 Urea nitrogen [Mass/Vol] 24 mg/dL 7-18 [facility] Thin prep Papanicolaou smear with manual screeningOrdered By: Dr. Herrera on 11-23-2022 Thin prep Papanicolaou smear with manual screening 17 U/L 15-37 [facility] Thin prep Papanicolaou smear with manual screening 8 5-15 [facility] Basophil percentageon 2021 Chloride [Moles/Vol] 106 mmol/L 98-107 [facility] Work Phone: Cholesterol [Mass/Vol] 392 mg/dL <200 [facility] Work Phone: [phone] Comment on above: <200 mg/dL Desirable 200-240 mg/dL Borderline >240 mg/dL High Risk Glucose [Mass/Vol] 89 mg/dL 74-106 [facility] Work Phone: Potassium [Moles/Vol] 4.1 mmol/L 3.5-5.1 [facility] Work Phone: [phone] Sodium [Moles/Vol] 140 mmol/L 136-145 [facility] Work Phone: [phone] Triglyceride [Mass/Vol] 119 mg/dL [facility] Work Phone: Comment on above: The drugs N-Acetylcy steine and Metamizole may falsely depress this assay.Serum Triglycerides Reference Interval Normal <150 mg/dL Borderline high 150 - 199 mg/dL High 200 - 499 mg/dL Very High > or = 500 mg/dL Laboratory - Chemistry and C hemistry - challengeon 11-10-2021 CO2 [Moles/Vol] 27.0 mmol/L 21.0-32.0 [facility] Work Phone: Urea nitrogen/Creatinine [Mass ratio] 23.9 mg/mg 10-20 [facility] Work Phone: No Panel Informationon 11-10 Estimated GFR (MDRD) Amer 97 mL/min >60 [facility] Work Phone: Comment on above: GFR Calc Estimated GFR (MDRD) Non-Af Amer 81 mL/min >60 [facility] Work Phone: Comment on above: Non- GFR Calc Serum or plasma calcium og urement (mass/volume)on 11-10-2021 Calcium [Mass/Vol] 9.8 mg/dL 8.5-10.1 [facility] Work Phone: Serum or plasma cholesterol in HDL measurement (mass/volume)on 11-10-2021 Cholesterol in HDL [Mass/Vol] 55 mg/dL [facility] Work Phone: Comment on above: The drugs N-Acetylcy steine and Metamizole may falsely depress this assay. Reference Range HDL <40 mg/dL Low HDL Cholesterol HDL >or= 60 mg/dL High HDL Cholesterol Serum or plasma cholesterol in VLDL measurement (mass/volume)on 11-10-2021 Cholesterol in VLDL [Mass/Vol] 24 mg/dL 5-40 [facility] Work Phone: Serum or plasma creatinine m easurement (mass/volume)on 11-10-2021 Creatinine [Mass/Vol] 0.75 mg/dL 0.55-1.02 [facility] Work Phone: Comment on above: The validity of the calculated GFR & GFRAA in patients over 70 years has not been determined. Clinical correlation is essential. Serum or plasma low density lipoprotein (LDL) cholesterol measurement (mass/volume)on 11-10-2021 Cholesterol in LDL [Mass/Vol] 313 mg/dL 0-130 [facility] Work Phone: Serum or plasma urea nitroge n measurement (mass/volume)on 11-10-2021 Urea nitrogen [Mass/Vol] 18 mg/dL 7-18 [facility] Work Phone: Thin prep Papanicolaou smear with manual screeningon 11-10-2021 Thin prep Papanicolaou smear with manual screening 7 5-15 [facility] Work Phone: CNCOon 03-18-2017 [facility] ID: [id number]: Mammography CoordinatorService: (none)Author Type: PhysicianType: LetterFiled: 03/22/2017 11:32 PMNote Text:March 18, 2017 PID: [id number] [address] [place] [address] Rashmi Velásquez [place] [address]Yutx Ms. Nunez,We are pleased to inform you that the results of your recent breastimaging exam on 03/18/2017 are normal. Early detection of cancer is veryimportant. We also understand recommendations regarding breast cancerscreening are controversial. Please discuss with your primary careprovider which strategy is best for you and whether a mammogram is rightfor you.Your imaging studies and report will [facility] and are available for yourcontinuing care.Thank you for allowing us to help in meeting your health care needs.Sincerely,Dr. Drummondpreerasmo RadiologistWSt. Aloisius [facility] (Normal over 40) Normal [facility] SCREENINGon 03-18-2017 [facility] SCREENING * * *Final Report* * *DATE OF EXAM: Mar 18 2017 8:52AM [id number] - [facility] SCREENING / REASON: multiple diagnoses * * * * Physician Interpretation * * * *RESULT: #[id number] - [facility] SCREENINGBILATERAL DIGITAL SCREENING MAMMOGRAM WITH CAD: 03/18/2017HISTORY: Screening Mammogram - patient reports NO breast symptoms /priors available for comparison.RESULT:TECHNI QUE: The study was acquired using full field digital technology and interpreted from soft copy.Current study was also evaluated with a Computer Aided Detection (CAD).Comparison is made to exams dated: 03/04/2016 mammogram, 02/27/2015 mammogram, and 02/20/2014 mammogram - [facility].There are scattered fibroglandular elements in both breasts.There are post operative findings in the left breast.No significant masses, calcifications, or other findings are seen in either breast.There has been no significant interval change.IMPRESSION: NEGATIVEThere is no mammographic evidence of malignancy.A 1 year screening mammogram is recommended. The exam was reviewed by a staff physician.Krystal Denis M.D.ch,alverto/sulaiman:03/18/20 17 10:01:18Imaging Technologist: Anjelica BOWEN(John)(Darrell), [facility]: Normal over 40Mammogram BI-RADS: 1 NegativeTranscriptionist : OrenradTranscribe Date/Time: Mar 18 2017 8:52ADictated by: JACIEL DENIS MDThis examination was interpreted and the report reviewed and electronically signed by: KRYSTAL SANCHEZ MD on Mar 18 2017 10:01AM EST Normal [facility] PROGRESSon 03-18-2017 PROGRESS HNO ID: [id number]: Angélica Sheppard RtService: (none)Author Type: (none)Type: Progress NotesFiled: 03/18/2017 8:54 AMNote Text: Radiology Service Progress NotePATIENT NAME: Viki NunezMRN: [id number] OF SERVICE: March 18, 2017TIME: 8:30 AMPATIENT IDENTITY VERIFICATION COMPLETED USING TWO (2) METHODS: Patientconfirmed name verbally and Date of .PATIENT GENDER DATA: Female. status: : NoBreastfeeding status: NO.PATIENT RELEVANT IMPLANT DATA REVIEWED: Not ApplicableRADIOLOGY DEPARTMENT: [facility] mammogramPERIPHERAL IV DATA: Not applicableSIGNED BY: Angélica Sheppard RtS2016 8:30 AM Normal [facility] Vital Signs Date Time Vital Sign Value Performing Clinician Jimbo moeller 11-22-2024 08:30-0400 Body height 154.[address] Angelique Herrera MD Work Phone: [facility] 11-22-2024 08:30-0400 Body mass index (BMI) [Ratio] 23.8 kg/m2 Dr. Angelique Herrera MD Work Phone: [facility] 11-22-2024 08:30-0400 Body weight 57.[address] Angelique Herrera MD Work Phone: [facility] 11-22-2024 08:30-0400 Diastolic blood pressure 65 mm[Hg] Dr. Angelique Herrera MD Work Phone: [facility] 11-22-2024 08:30-0400 Heart rate 73 /min Dr. Angelique Herrera MD Work Phone: [facility] 11-22-2024 08:30-0400 Respiratory rate 18 /min Dr. Angelique Herrera MD Work Phone: [facility] 11-22-2024 08:30-0400 SaO2% (BldA) [Mass fraction] 97 % Dr. Angelique Herrera MD Work Phone: [facility] 11-22-2024 08:30-0400 Systolic blood pressure 115 mm[Hg] Dr. Angelique Herrera MD Work Phone: [facility] 12-17-2022 14:23-0400 Body height 154.94 cm [facility] Encounters Encounter Date Encounter Type Care Provider Facility Start: 03-26-2025 End: 03-26-[address] Angelique Herrera MD Work Phone: -[facility] Start: 03-26-2025 End: 03-26-[address] Ninoska Sales MD -[facility] Start: 03-26-2025 End: 03-26-2025 ambulatory Angelique Herrera Facility:[facility] Start: 01-02-2025 End: 01-02-[address] Angelique Herrera MD Work Phone: -[facility] Start: 01-02-2025 End: 01-02-2025 Patient encounter procedure Anjel Christinbridget PROFESSOR IN FAMILY STUDIES-C -[facility] Work Phone: Start: 01-02-2025 End: 01-02-2025 ambulatory Anjel McMorrow PROFESSOR IN FAMILY STUDIES Facility:[facility] Start: 12-01-2024 End: 12-01-[address] Angelique Herrera MD Work Phone: [facility] Work Phone: Start: 12-01-2024 End: 12-01-[address] Angelique Herrera MD -[facility] Start: 12-01-2024 End: 12-01-2024 ambulatory Angelique Herrera Facility:[facility] Start: 11-22-2024 End: 11-22-[address] Jw Camacho MD -[facility] Work Phone: Start: 11-22-2024 End: 11-22-[address] Angelique Herrera MD Work Phone: [facility] Work Phone: Start: 03-03-2023 End: 03-03-2023 ambulatory [facility] Work Phone: Start: 03-03-2023 End: 03-03-2023 Patient encounter procedure [facility]Laboratory, Specimen Work Phone: Start: 02-12-2023 End: 02-12-2023 ambulatory [facility] Start: 02-09-2023 End: 02-09-2023 ambulatory [facility] Work Phone: Start: 02-09-2023 End: 02-09-2023 Discharged Recurring [facility] Therapy Work Phone: Start: 12-22-2022 Registered Recurring [facility] Start: 12-17-2022 End: 12-17-2022 ambulatory [facility] Work Phone: Start: 12-17-2022 End: 12-17-2022 Patient encounter procedure [facility] Start: 12-08-2022 End: 12-08-2022 [facility] Start: 11-23-2022 End: 11-23-2022 [facility] Start: 11-10-2021 End: 11-10-2021 [facility] Start: 03-18-2017 End: 03-18-2017 [facility] TAD ZELAYA [facility] Kim Procedures Date Procedure Procedure Detail [...] results 12 Lead EKG performed by KEVIN [facility] Hepatic function panel [facility] Lipid 1996 panel - Serum or Plasma [facility] Payers Date Payer Category Payer Self-pay [id number] 2015 Medicare [id number] [id number] 2015 Unknown [id number] Unknown [id number] Unknown [id number] Unknown [id number] [id number] Unknown [id number] [id number] Social History Date Type Detail Facility [facility] Start: 1950 Sex Assigned At Female [facility] Start: 06-11-2020 [facility] Sex Female [facility] Evaluation note 11-22-2024 Note Date & Type Note Facility 11-22-2024 Evaluation note Diagnosis Onset Date Resolution Family history of sudden cardiac acute November 22, 2024 8:26am Hyperlipidemia acute November 22, 2024 8:26am Hypertension chronic November 22 8:26am [facility] Work Phone: Progress note 11-22-2024 Note Date & Type Note Facility 11-22-2024 Progress note [facility] Progress note 11-22-2024 Note Date & Type Note Facility 11-22-2024 Progress note Note Date/Time November 22, 2024 9:10am [facility] [address] [place] [address] OFFICE VISIT Date of Service: 11/22/24 MR#: [id number] Acct: [id number] Name: VIKI NUNEZ Rep #: [id number] : 1950 Provider: Dr. Don Camacho MD Age/Sex: 74/F [place] [facility] [place]: Signed with Addenda ADDENDUM by [...] Orders: Orders 12 Lead EKG performed by [facility] Today E78.5 - Hyperlipidemia, unspecified Lipid Profile [...] 2023 total cholesterol was 403 HDL 52 RNV015 and triglycerides 141. 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 Angelique Herrrea MD ~ [employer] Work Phone: Discharge summary 02-09-2023 Note Date & Type Note Facility 02-09-2023 Discharge summary Note Date/Time February 09, 2023 9:5 1am [facility] [address] [place] [address] [address] [place] [address] / REHABILITATION SERVICES DISCHARGE SUMMARY MR#: [id number] Acct: [id number] Name: VIKI NUNEZ Rep #: [id number] : 1950 72 From: Kimberly De Paz Referring Dr.: Dr. Angelique Herrera MD Status: REG RCR Insurance: MEDICARE PART A B [employer] [facility] Discharge Summary D/C summary: It has [...] D/C Information Discharge Comments: DC PT to [facility] d/c sentence: If there are questions or concerns regarding this patient's physical therapy, please feel free to call me at [phone]. Thank you for the referral of thispatient. Sincerely, GINNY West Balance/Gait/Functional tests Balance/Special Test Scores Oswestry Low Back Score: 0 <Electronically signed by Kimberly Gonsales MPT> 02/09/23 0951 CC: Dr. Aneglique Herrera MD ~ Signed [facility] Work Phone: Discharge summary 01-31-2023 Note Date & Type Note Facility 01-31-2023 Discharge summary Note Date/Time January 04, 2023 10:28 am [facility] [address] [place] [address]. [address] [place] [address] / REHABILITATION SERVICES DISCHARGE SUMMARY MR#: [id number] Acct: [id number] Name: VIKI NUNEZ Rep #: [id number] : 1950 72 From: Cert. VILMA KruseT, OCS Referring Dr.: Dr. Angelique Herrera MD Status: REG RCR Insurance: MEDICARE PART A B [employer] [facility] Discharge Summary D/C summary: It has [...] please feel free to call me at [phone]. Thank you for the referral of thispatient. Sincerely, Jason Jurado, PT, Cert MDT, OCS Balance/Gait/Functional tests Balance/Special Test Scores Oswestry Low Back Score: 25 <Electronically signed by Jason Jurado PT, Cert. BELIA, OCS> 01/31/23 1703 CC: Dr. Angelique Herrera MD ~ JLA Signed [facility] Work Phone: Evaluation note Note Date & Type Note Facility Evaluation note No assessment information availa ble [facility] Work Phone: Evaluation note Note Date & Type Note Facility Evaluation note Diagnosis Onset Date Resolution Family history of sudden cardiac acute November 22, 2024 8:26am Hyperlipidemia acute November 22, 2024 8:26am Hypertension chronic November 22 8:26am [facility] Work Phone: Reason for referral (narrative) Note Date & Type Note Facility Reason for referral (narrative) No reason for referral information available [facility] Work Phone: Summary Purpose Family History [...] Yes January 19, 2019 10:12am Power of Simulation Educator Yes January 19 10:12am Chief Complaint and [...] section and content) DATE CREATED AUTHOR 12/29/2017 [facility] DATE CREATED AUTHOR AUTHOR'S ORGANIZ ATION 02/13/2023 [facility] tem [facility] DATE CREATED AUTHOR AUTHOR'S ORGANIZ ATION 04/07/2025 [facility] Goals (unrecognized section and content) Goals [...] 2025 End: January 02, 2025 Anjel Adams PROFESSOR IN FAMILY STUDIES, PROFESSOR IN FAMILY STUDIES-C Attending Provider Active Start: January 02, 2025 End: January 02, 2025 Anjel Adams PROFESSOR IN FAMILY STUDIES, PROFESSOR IN FAMILY STUDIES-C Referring Provider Active Start: January 02, 2025 End: January 02, 2025 Team Status: Active Member Role/Relationship Status Dates Dr. Angelique Herrera MD Primary care physician Active Team Status: Inactive Member Role/Relationship Status Dates Dr. Angelique Herrera MD Primary care physician Active Start: January 02, 2025 End: January 02, 2025 Anjel Adams PROFESSOR IN FAMILY STUDIES, PROFESSOR IN FAMILY STUDIES-C Attending physician Active Start: January 02, 2025 End: January 02, 2025 Anjel Wallerlynnkristie PROFESSOR IN FAMILY STUDIES, PROFESSOR IN FAMILY STUDIES-C Referring Provider Active Start: January 02, 2025 [...] BE BASED ON THE PRIMARY CLINICAL RECORDS. [employer] [facility]. provides no warranty or guarantee of the accuracy or completeness of information in this document.
[2025-05-28] MEDS: HEPARIN/D5w 25,000 UNITS 25,000 UNITS/250 ML IV.SOLN. 6.8 UNITS CONT INF (01:53)
[2025-05-28] MEDS: Heparin Injection (Vial) 5,000 UNIT/ML VIAL 3500 UNIT IV (01:55)
[2025-05-28] MEDS: Nitroglycerin Infusion 250 ML 3 MG CONT INF (02:03)
[2025-05-28 02:40] LABS: Troponin T High Sens 2 HR 486 ng/L (<=14)
--- NOTE | 2025-05-28 02:42 | NURSING ---
Received phone call from lab with critical troponin of 486. Pt has not yet arrived to floor. This RN called ED automobiles salespersonStiven and notified her. Stiven states she will notify ED physician.
--- NOTE | 2025-05-28 02:59 | ECHOD_ITS ---
Reason For Study Reason For Study: Chest pain, CAD Procedure This was a 2D Doppler, Color Flow transthoracic echocardiogram. Exam performed portable in patient room. Left Ventricle Normal LV size. The left ventricular ejection fraction is 55 %. Mild segmental systolic dysfunction (see wall motion). Stage 1 diastolic dysfunction. Mid-Lateral : Hypokinetic. Lateral-Basal: Hypokinetic. Mid-Posterior: Hypokinetic. The rest of the wall segments are normal. Right Ventricle Normal RV size. Normal systolic function. Atria Normal left atrium. Normal right atrium. Mitral Valve Normal mitral valve. Mild (1+) eccentric mitral valve insufficiency. Tricuspid Valve Normal tricuspid valve. Mild (1+) tricuspid valve insufficiency. Pulmonary artery systolic pressure is 20 mmHg. Aortic Valve Trisinus/trileaflet aortic valve. Mild focal aortic valve calcification. Peak aortic valve gradient 22 mmHg. Mean aortic valve gradient 13 mmHg. Mild aortic stenosis. Pulmonic Valve Normal pulmonic valve. Great Vessels Normal aortic root. The pulmonary artery is normal size. Inferior vena cava collapse with respiration. Pericardium/Pleural No pericardial effusion. MMode/2D Measurements & Calculations LVIDd: 4.2 cm IVSd: 0.83 cm LVOT diam: 1.9 cm LVIDs: 2.2 cm LVPWd: 0.82 cm LVOT area: 2.9 cm2 RVDd: 2.8 cm FS: 49.0 % LAV(MOD-bp): 26.8 ml LVAd ap4: 23.0 cm2 LVAd ap2: 25.3 cm2 LAV(MOD-bp) Indexed: 17.3 ml/m2 LVLd ap4: 7.7 cm LVLd ap2: 7.7 cm LAV(MOD-sp2): 27.6 ml EDV(MOD-sp4): 57.0 ml EDV(MOD-sp2): 68.5 ml LAV(MOD-sp4): 25.0 ml EDV(sp4-el): 58.1 ml EDV(sp2-el): 70.5 ml LVAs ap4: 14.3 cm2 LVAs ap2: 16.1 cm2 LVLs ap4: 6.8 cm LVLs ap2: 6.8 cm ESV(MOD-sp4): 24.7 ml ESV(MOD-sp2): 31.8 ml ESV(sp4-el): 25.3 ml ESV(sp2-el): 32.5 ml EF(MOD-sp4): 56.7 % EF(MOD-sp2): 53.6 % EF(sp4-el): 56.4 % SV(MOD-sp4): 32.3 ml SV(MOD-sp2): 36.7 ml SV(sp4-el): 32.8 ml SI(MOD-sp4): 20.9 ml/m2 SI(MOD-sp2): 23.7 ml/m2 LA A4 area: 12.4 cm2 LA dimension(2D): 3.2 cm RA A4 area: 11.8 cm2 TAPSE: 1.7 cm Time Measurements MV dec time: 0.28 sec Doppler Measurements & Calculations MV E max michael: 85.7 cm/sec Lat Peak E' Michael: 11.5 cm/sec Med Peak E' Michael: 6.3 cm/sec MV A max michael: 115.7 cm/sec E/E' lat: 7.5 E/E' med: 13.7 MV E/A: 0.74 MV V2 max: 118.0 cm/sec Ao V2 max: 234.9 cm/sec MV max P.6 mmHg MV dec slope: 307.3 cm/sec2 Ao max P.1 mmHg MV V2 mean: 65.1 cm/sec Ao V2 mean: 169.6 cm/sec MV mean P.0 mmHg Ao mean P.9 mmHg MV V2 VTI: 37.2 cm Ao V2 VTI: 52.7 cm AV (velocity ratio): 0.71 MVA(VTI): 2.9 cm2 GERMAN(I,D): 2.1 cm2 GERMAN(V,D): 1.9 cm2 LV V1 max: 156.0 cm/sec SV(LVOT): 109.5 ml TR max michael: 209.3 cm/sec LV V1 max P.8 mmHg TR max P.5 mmHg LV V1 mean P.4 mmHg LV V1 mean: 121.5 cm/sec LV V1 VTI: 37.4 cm ECHO/Echo Complete Interpretation Summary Normal LV size. The left ventricular ejection fraction is 55 %. Mild segmental systolic dysfunction (see wall motion). Stage 1 diastolic dysfunction. Mild (1+) eccentric mitral valve insufficiency. Mild focal aortic valve calcification. Mean aortic valve gradient 13 mmHg. Mild aortic stenosis. Ordering Physician: Yue Villanueva Referring Physician: Ninoska Sales Performed By: Holly Goel RCS
--- NOTE | 2025-05-28 02:59 | EKG12_ITS ---
Test Reason : CP EKG Blood Pressure : */* mmHG Vent. Rate : 71 BPM Atrial Rate : 71 BPM P-R Int : 196 ms QRS Dur : 76 ms QT Int : 408 ms P-R-T Axes : 66 48 84 degrees QTcB Int : 443 ms Normal sinus rhythm Nonspecific ST abnormality Abnormal ECG When compared with ECG of 27-May-2025 23:23, MANUAL COMPARISON REQUIRED DATA IS UNCONFIRMED Confirmed by RAS ESPARZA, SHOSHANA ([id number]), features editor NANCY ALBARADO ([id number]) on 05/29/2025 10:23:38 AM Referred By: Confirmed By: SHOSHANA MCGINNIS MD
[2025-05-28 03:42] LABS: Hematocrit 34.7 % (37-47); Hemoglobin 11.9 g/dL (12.0-15.0); Mean Corp Hgb Conc 34.3 g/dL (32-36); Mean Corpuscular Volume 90.8 fL (81-99); Mean Platelet Vol. 9.4 fl (6.2-12.0); Platelet Count 277 K/mm3 (150-450); RBC Distribution Width CV 12.2 % (11.6-14.6); RBC Distribution Width SD 40.3 fl (35.1-43.9); Red Blood Count 3.82 M/mm3 (4.2-5.4); White Blood Count 8.3 K/mm3 (4.4-11.0)
[2025-05-28 03:59] LABS: Troponin T High Sens 4 HR 494 ng/L (<=14)
[2025-05-28 04:44] LABS: AST(SGOT) 64 U/L (<=31); Alanine Aminotransfer ALT/SGPT 33 U/L (<=34); Albumin, Serum 4.3 g/dL (3.4-4.8); Alkaline Phosphatase 112 U/L (35-104); Anion Gap 15 (5-15); BUN 23 mg/dL (4-19); BUN/Creat Ratio 33.4 RATIO (10-20); Calcium,Total 9.9 mg/dL (7.6-11.0); Carbon Dioxide 21.9 mmol/L (21.0-32.0); Chloride 103 mmol/L (98-108); Cholesterol 300 mg/dL (<=200); Estimated Creatinine Clearance 45.85 ml/min (50-250); Globulin 2.8 g/dL (2.2-4.2); Glucose 125 mg/dL (70-99); Low Density Lipoprotein Calc. 234 mg/dL; Magnesium 2.0 mg/dL (1.5-2.2); Potassium 3.8 mmol/L (3.3-5.1); Triglycerides 73 mg/dL; Very Low Density Lipoprotein 15 mg/dL (5-40); cholesterol:hdl ratio screen 5.49
--- OUTSIDE RECORDS SUMMARY | 2025-05-28 05:35 | XMS RPT_ITS | CCD ---
Author Organization [facility] Inform ion Partnership [facility] Care Team Providers Care Hand Cigar Making Supervisor Name Role Phone TAD CANDELARIO (GENERAL FOREMAN) Unavailable [employer], [facility] Primary Care Unavailable RODOLFO NAVARRETE Attending Unavailable Javier ESPARZA, Dr. Angelique Saavedra Primary Care Provider Javier ESPARZA, Dr. Angelique Saavedra Referring Provider Dr. Jw Camacho MD Attending Provider Javier ESPARZA, Dr. Angelique Saavedra Attending Provider McMorrow TRAFFIC SUPERINTENDENT-C, Anjel Attending Provider McMorrow TRAFFIC SUPERINTENDENT-C, Anjel Referring Provider Javier ESPARZA, Dr. Angelique Saavedra Primary Care Physician McMorrow TRAFFIC SUPERINTENDENT-C, Anjel Attending Physician Ninoska Saels MD Attending Physician Angelique Herrera Primary Care Unavailable Ninoska Sales Attending Unavailable McMorrow TRAFFIC SUPERINTENDENTAnjel Referring Unavailable McMorrow TRAFFIC SUPERINTENDENTAnjel Attending Unavailable Angelique Herrera Primary Care Unavailable Angelique Herrera Attending Unavailable Angelique Herrera Primary Care Unavailable Jw Camacho Attending Unavailable Angelique Herrera Referring Unavailable Angelique Herrera Primary Care Unavailable Allergies Allergy Classification Reported Allergen(s) Allergy Type Date of Onset Reaction(s) Facility (4 sources) Xriufjn-Frh-Zuu Reductase Inhibitor Propensity to adverse reactions 5 myalgia [facility] (1 source) Ypurozd-Psg-Jhy Reductase Inhibitor Drug allergy (disorder) 5 [facility] Repository Medications Current Medications Medication [...] on 03-26-2025 Bilirubin.direct [Mass/Vol] 0.15 mg/dL 0.00-0.30 [facility] Bilirubin, totalOrdered By: Jw Camacho on 03-26-2025 Bilirubin [Mass/Vol] 0.40 mg/dL 0.00-1.30 [facility] Calculated very low density lipoprotein (VLDL) cholesterol measurementOrdered By: Ninoska Sales on 03-26-2025 Calculated very low density lipoprotein (VLDL) cholesterol measurement 19 mg/dL 5-40 [facility] LDL calc ser/plasOrdered By: Ninoska Sales on 03-26-2025 Cholesterol in LDL [Mass/Vol] 225 mg/dL [facility] Comment on above: Siubaeuejt=752-628 m g/dL & Higher Avdk=124 mg/dL or greaterFriedwald Equation for LDL-C Laboratory - Chemistry and C hemistry - challengeOrdered By: Jw Camacho on 03-26-2025 AST [Catalytic activity/Vol] 21 U/L <32 [facility] Lipid Profileon 03-26-2025 CHOL:HDL 5.37 Normal [facility] Comment on above: Order Comment: Order Date: 01/02/25 Order Info: [id number] - LIPID Performed By: #### L 500.4100 #### [facility] [address] [place], [address] Cholesterol [Mass/Vol] 299 mg/dL High <=200 [facility] Comment on above: Order Comment: Order Date: 01/02/25 Order Info: [id number] - LIPID Result Comment: Chol esterol level, Desirable <200 mg/dL Borderline high cholesterol 200-239 mg/dL High cholesterol >=240 mg/dL Recommendations of the NCEP Adult Treatment Panel for the following risk-cutoff thresholds for the [place] population. Performed By: #### L 500.4100 #### [facility] [address] [place], [address] Cholesterol in HDL [Mass/Vol] 56 mg/dL Normal [facility] Comment on above: Order Comment: Order Date: 01/02/25 Order Info: [id number] - LIPID Result Comment: Lauren onal Cholesterol Education Program (NCEP) guidelines: <40 mg/dL: Low HDL-cholesterol (major risk factor for CHD) >= 60 mg/dL: High HDL-cholesterol (negative risk factor for CHD) HDL-cholesterol is affected by a number of factors, e.g. smoking, exercise, hormones, sex and age. Performed By: #### L 500.4100 #### [facility] [address] [place], [address] Cholesterol in LDL [Mass/Vol] 225 mg/dL Normal [facility] Comment on above: Order Comment: Order Date: 01/02/25 Order Info: [id number] - LIPID Result Comment: Bord vzzfsi=595-668 mg/dL Higher Yukq=271 mg/dL or greater Friedwald Equation for LDL-C Performed By: #### L 500.4100 #### [facility] [address] [place], [address] Cholesterol in VLDL [Mass/Vol] 19 mg/dL Normal 5-40 [facility] Comment on above: Order Comment: Order Date: 01/02/25 Order Info: [id number] - LIPID Performed By: #### L 500.4100 #### [facility] [address] [place], [address] Triglyceride [Mass/Vol] 93 mg/dL Normal [facility] Comment on above: Order Comment: Order Date: 01/02/25 Order Info: [id number] - LIPID Result Comment: The drugs N-Acetylcysteine and Metamizole may falsely depress this assay. Normal range: <150 mg/dL Borderline High: 150-199 mg/dL High: 200-499 mg/dL Very High: >500 mg/dL Performed By: #### L 500.4100 #### [facility] [address] [place], [address] Liver Profileon 03-26-2025 Albumin [Mass/Vol] 4.2 g/dL Normal 3.4-4.8 [facility] Comment on above: Performed By: #### L 500.3400 #### [facility] [address] [place], [address] ALK PHOS 103 U/L Normal 35-104 [facility] Comment on above: Performed By: #### L 500.3400 #### [facility] [address] [place], [address] ALT [Catalytic activity/Vol] 20 U/L Normal <=34 [facility] Comment on above: Performed By: #### L 500.3400 #### [facility] [address] [place], [address] AST [Catalytic activity/Vol] 21 U/L Normal <=31 [facility] Comment on above: Performed By: #### L 500.3400 #### [facility] [address] [place], [address] Bilirubin [Mass/Vol] 0.40 mg/dL Normal 0.00-1.30 [facility] Comment on above: Performed By: #### L 500.3400 #### [facility] [address] [place], [address] Bilirubin.direct [Mass/Vol] 0.15 mg/dL Normal 0.00-0.30 [facility] Comment on above: Performed By: #### L 500.3400 #### [facility] [address] [place], [address] Globulin (S) [Mass/Vol] 2.9 g/dL Normal 2.2-4.2 [facility] Comment on above: Performed By: #### L 500.3400 #### [facility] [address] [place], [place], [id number] T PROT 7.1 g/dL Normal 5.9-8.4 [facility] Comment on above: Performed By: #### L 500.3400 #### [facility] [address] [place], [place], [id number] Screening total cholesterol/ high density lipoprotein (HDL) cholesterol ratioOrdered By: Ninoska Sales on 03-26-2025 Cholesterol.total/Chol esterol in HDL [Mass ratio] 5.37 {ratio} [facility] Serum globulin measurementOr dered By: Jw Camacho on 03-26-2025 Globulin (S) [Mass/Vol] 2.9 g/dL 2.2-4.2 [facility] Serum or plasma alanine fonseca otransferase (ALT) measurementOrdered By: Jw Camacho on 03-26-2025 ALT [Catalytic activity/Vol] 20 U/L <35 [facility] Serum or plasma albumin og urement (mass/volume)Ordered By: Jw Camacho on 03-26-2025 Albumin [Mass/Vol] 4.2 g/dL 3.4-4.8 [facility] Serum or plasma alkaline tyrone sphatase measurementOrdered By: Jw Camacho on 03-26-2025 ALP [Catalytic activity/Vol] 103 U/L 35-104 [facility] Serum or plasma cholesterol in HDL measurement (mass/volume)Ordered By: Ninoska Sales on 03-26-2025 Cholesterol in HDL [Mass/Vol] 56 mg/dL >40 [facility] Comment on above: National Cholesterol Education Program (NCEP) guidelines:<40 mg/dL: Low HDL-cholesterol (major risk factor for CHD)>= 60 mg/dL: High HDL-cholesterol (negative risk factor for CHD)HDL-cholesterol is affected by a number of factors, e.g. smoking, exercise, hormones, sex and age. Serum or plasma cholesterol measurement (mass/volume)Ordered By: Ninoska Sales on 03-26-2025 Cholesterol [Mass/Vol] 299 mg/dL High <201 [facility] Comment on above: Cholesterol level, D esirable <200 mg/dLBorderline high cholesterol 200-239 mg/dLHigh cholesterol >=240 mg/dLRecommendations of the NCEP Adult Treatment Panel for the following risk-cutoff thresholds for the [place] population. Total proteinOrdered By: True holly Camacho on 03-26-2025 Protein [Mass/Vol] 7.1 g/dL 5.9-8.4 [facility] Triglycerides measurementOrd ered By: Ninoska Sales on 03-26-2025 Triglyceride [Mass/Vol] 93 mg/dL <199 [facility] Comment on above: The drugs N-Acetylcy steine and Metamizole may falsely depress this assay. Normal range: <150 mg/dLBorderline High: 150-199 mg/dLHigh: 200-499 mg/dLVery High: >500 mg/dL Bone density reportOrdered B y: Luís Love on 01-03-2025 Study report Skeletal system DXA [facility] [address] [place], [place] [address] Dexa Bone Density Study MR#: [id number] Acct: [id number] Name: VIKI NUNEZ Rep #: [id number] : 1950 F 74 From: Pretty Love MD PCP: Dr. Angelique Herrera MD Status: [facility] Study:Dexa Bone Density Study Date of Exam: 01/02/25 Exam# [id number] Ordering Dr: Anjel Adams TRAFFIC SUPERINTENDENT TRAFFIC SUPERINTENDENT-C PROCEDURE: DEXA BONE DENSITY STUDY 01/02/2025 REASON [...] Bone Density Study IMPRESSION: OSTEOPOROSIS. Reading Location: [id number] CC: Anjel Adams; Dr. Angelique Herrera MD ~ Ballet Master/Mistress: Signed [facility] Breast imaging reportOrdered By: Adriana Cash on 01-02-2025 Study report [facility] [address] [place] [id number] SCRN MAMM (CAD)W/HERBIE BILAT MR#: [id number] Acct: [id number] Name: VIKI NUNEZ Rep #: [id number] : 1950 F 74 From: Demario Mccauley MD PCP: Dr. Angelique Herrera MD Status: [facility] Study:SCRN MAMM (CAD)W/HERBIE BILAT Date of Exa m: 01/02/25 Exam# [id number] Ordering Dr: Anjel Adams NP, NP-C EXAM: [...] be mailed to the patient. Reading Location: [id number] CC: Anjel Adams; Dr. Angelique Herrera MD ~ Ballet Master/Mistress: Signed [facility] Dexa Bone Density Studyon Dexa Bone Density Study [facility] [address] [place], [place] [address] Dexa Bone Density Study MR#: [id number] Acct: [id number] Name: VIKI NUNEZ Rep #: [id number] : 1950 F 74 From: Luís Love MD PCP: Dr. Angelique Herrera MD Status: REG [facility] Study: Dexa Bone Density Study Date of Exam: 01/02/25 Exam# [id number] Ordering Dr: Anjel Adams NP, NP PROCEDURE: [...] Bone Density Study IMPRESSION: OSTEOPOROSIS. Reading Location: [id number] CC: Anjel Adams; Dr. Angelique Herrera MD Ballet Master/Mistress: Signed [facility] SCRN MAMM (CAD)W/HERBIE BILATo n 01-02-2025 SCRN MAMM (CAD)W/HERBIE BILAT [facility] [address] [place] [address] SCRN MAMM (CAD)W/HERBIE BILAT MR#: [id number] Acct: [id number] Name: VIKI NUNEZ Rep #: [id number] : 1950 F 74 From: Adriana Jernigan i, MD PCP: Dr. Angelique Herrera MD Status: REG CLI Study: SCRN MAMM (CAD)W/HERBIE BILAT Date of Exam: 07/29 Exam# [id number] Ordering Dr: Anjel Adams NP, NP EXAM: [...] be mailed to the patient. Reading Location: [id number] CC: Anjel Adams; Dr. Angelique Herrera MD Ballet Master/Mistress: Signed [facility] Calculated very low density lipoprotein (VLDL) cholesterol measurementOrdered By: Anjel Ariskristie on 12-01-2024 Calculated very low density lipoprotein (VLDL) cholesterol measurement 21 mg/dL 5-40 [facility] Hemoglobin A1con 12-01-2024 HbA1c (Bld) [Mass fraction] 5.7 % Normal <=5.6 [facility] Comment on above: Order Comment: PER P T-JUST [facility] ORDER Order Date: 12/01/24 Order Info: [id number] - A1C Comments: screening diabetes Result Comment: Norm al < 5.7 % Prediabetic 5.7 - 6.4 % Diabetic >or= 6.5 % Please note range changes. Performed By: #### L 501.9985 #### [facility] [address] [place], [place], [address] Hemoglobin A1c percentageOrd ered By: Anjel Ariskristie on 12-01-2024 HbA1c (Bld) [Mass fraction] 5.7 % <5.7 [facility] Comment on above: Normal < 5.7 % Predi abetic 5.7 - 6.4 % Diabetic >or= 6.5 % Please note range changes. LDL calc ser/plasOrdered By: Anjel Adams on 12-01-2024 Cholesterol in LDL [Mass/Vol] 353 mg/dL [facility] Comment on above: Iwdgbswlhh=770-647 m g/dL & Higher Utbc=137 mg/dL or greater Lipid Profileon 12-01-2024 CHOL:HDL 8.04 Normal [facility] Comment on above: Order Comment: PER P T-JUST [facility] ORDER Order Date: 12/01/24 Order Info: [id number] - LIPID Comments: screening cholesterol Performed By: #### L 500.4100 #### [facility] [address] [place], [place], [address] Cholesterol [Mass/Vol] 427 mg/dL High <=200 [facility] Comment on above: Order Comment: PER P T-JUST [facility] ORDER Order Date: 12/01/24 Order Info: [id number] - LIPID Comments: screening cholesterol Result Comment: Chol esterol level, Desirable <200 mg/dL Borderline high cholesterol 200-239 mg/dL High cholesterol >=240 mg/dL Recommendations of the NCEP Adult Treatment Panel for the following risk-cutoff thresholds for the [place] population. Performed By: #### L 500.4100 #### [facility] [address] [place], [address] Cholesterol in HDL [Mass/Vol] 53 mg/dL Normal [facility] Comment on above: Order Comment: PER P T-JUST ORR ORDER Order Date: 12/01/24 Order Info: [id number] - LIPID Comments: screening cholesterol Result Comment: Lauren onal Cholesterol Education Program (NCEP) guidelines: <40 mg/dL: Low HDL-cholesterol (major risk factor for CHD) >= 60 mg/dL: High HDL-cholesterol (negative risk factor for CHD) HDL-cholesterol is affected by a number of factors, e.g. smoking, exercise, hormones, sex and age. Performed By: #### L 500.4100 #### [facility] [address] [place], [address] Cholesterol in LDL [Mass/Vol] 353 mg/dL Normal [facility] Comment on above: Order Comment: PER P T-JUST ORDER Order Date: 12/01/24 Order Info: [id number] - LIPID Comments: screening cholesterol Result Comment: Bord tpgvkh=338-264 mg/dL Higher Abjx=344 mg/dL or greater Performed By: #### L 500.4100 #### [facility] [address] [place], [address] Cholesterol in VLDL [Mass/Vol] 21 mg/dL Normal 5-40 [facility] Comment on above: Order Comment: PER P T-JUST ORR ORDER Order Date: 12/01/24 Order Info: [id number] - LIPID Comments: screening cholesterol Performed By: #### L 500.4100 #### [facility] [address] [place], [address] Triglyceride [Mass/Vol] 103 mg/dL Normal [facility] Comment on above: Order Comment: PER P T-JUST ORR ORDER Order Date: 12/01/24 Order Info: [id number] - LIPID Comments: screening cholesterol Result Comment: The drugs N-Acetylcysteine and Metamizole may falsely depress this assay. Normal range: <150 mg/dL Borderline High: 150-199 mg/dL High: 200-499 mg/dL Very High: >500 mg/dL Performed By: #### L 500.4100 #### [facility] [address], [address] Screening total cholesterol/ high density lipoprotein (HDL) cholesterol ratioOrdered By: Anjel Adams on 12-01-2024 Cholesterol.total/Chol esterol in HDL [Mass ratio] 8.04 {ratio} [facility] Serum or plasma cholesterol in HDL measurement (mass/volume)Ordered By: Anjel Adams on 12-01-2024 Cholesterol in HDL [Mass/Vol] 53 mg/dL >40 [facility] Comment on above: National Cholesterol Education Program (NCEP) guidelines:<40 mg/dL: Low HDL-cholesterol (major risk factor for CHD)>= 60 mg/dL: High HDL-cholesterol (negative risk factor for CHD)HDL-cholesterol is affected by a number of factors, e.g. smoking, exercise, hormones, sex and age. Serum or plasma cholesterol measurement (mass/volume)Ordered By: Anjel Adams on 12-01-2024 Cholesterol [Mass/Vol] 427 mg/dL High <201 [facility] Comment on above: Cholesterol level, D esirable <200 mg/dLBorderline high cholesterol 200-239 mg/dLHigh cholesterol >=240 mg/dLRecommendations of the NCEP Adult Treatment Panel for the following risk-cutoff thresholds for the [place] population. Triglycerides measurementOrd ered By: Anjel Adams on 12-01-2024 Triglyceride [Mass/Vol] 103 mg/dL <199 [facility] Comment on above: The drugs N-Acetylcy steine and Metamizole may falsely depress this assay. Normal range: <150 mg/dLBorderline High: 150-199 mg/dLHigh: 200-499 mg/dLVery High: >500 mg/dL 12 Lead EKG performed by [facility] on 11-22-2024 12 Lead EKG performed by [facility] [address] [place] [address] 12 Lead [place] [facility] [place]241658 MR#: [id number] Acct: [id number] Name: VIKI NUNEZ Rep #: [id number] : 1950 74 From: Jw Camacho MD Attending Dr: Dr. Jw Camacho MD Status: DE P AMB Ordering Dr: Jw Camacho MD Date: 11/22/24 [place] [facility] Sex: F C Admitted: BMS/12 Lead EKG performed [place] [facility] ECG Report Interpretation --Sinus Rhythm WITHIN NORMAL LIMITSElectronically signed on 11/22/2024 at 12:[address] Jw Camacho [employer] Version 8610 11/22/24 1207 Date Jw Camacho MD CC: Dr. Angelique Herrera MD Date Dictated: 11/22/241658 Date Transcribed: 11/22/241658 Ballet Master/Mistress: Signed Normal [facility] Cardiology Visit Reporton Cardiology Visit Report [facility] [address] [place] [address] OFFICE VISIT Date of Service: 11/22/24 MR#: [id number] Acct: [id number] Name: VIKI NUNEZ Rep #: [id number] : 1950 Provider: Dr. Jw hutchinson MD Age/Sex: 74/F [place] [facility] Status: Signed with Addenda ADDENDUM by Dr. [...] room air Intake Visit Reasons: HDL (Javier) Well Surveying Engineer Required: No Accompanied by: Self Is patient in pain?: No Allergies Wnchwwg-NPM-UtD Reductase Inhibitor Adverse Reaction (Verified 11/22/24 08:30) [...] Q2W #2 mL 11/22/24 Rx pen injector ([facility]) Have you fallen in the past year?: [...] or we (more content not included)... Normal [facility] PT D/C Summary (1)on 024 PT D/C Summary (1) [facility] Physical Therapy [facility] [address] [place] [address] / REHABILITATION SERVICES DISCHARGE SUMMARY MR#: [id number] Acct: [id number] Name: VIKI NUNEZ Rep #: [id number] : 1950 74 From: Mckenzie Guillen PT. T, OCS Referring Dr.: Dr. Angelique Herrera MD Status: RE G RCR Insurance: MEDICARE PART A B [employer] [facility] Discharge Summary D/C summary: It has been [...] please feel free to call me at [phone]. Thank you for the referral of this patient. Sincerely, Jason Jurado, PT, Cert T, OCS Balance/Gait/Functional tests Balance/Special Test Scores Quick DASH Score: 63.6350 06/07/24 1455 CC: Dr. Angelique Herrera MD FLAQUITA Signed Normal [facility] Culture, urineOrdered By: Dameon Rowe on 03-03-2023 Bacteria identified Cx Nom (U) Presumptive E. coli [facility] Office Visiton 02-12-2023 Follow-up visit [id number] Quentin Nunez er 1950 F Date Provider Department Center 02/12/2023 [id number] NAVARRETE [facility] WAD None No family history on file Level of Service:22795 CT OFFICE/OUTPATIENT NEW LOW MDM 30-44 MINUTES Reason for Visit and Comments: New Patient [542] - Left Achilles Tendinitis Normal [facility] PATINSon 02-12-2023 PATINS Achilles Tendon: Eccentric [...] 10 3 12 3 15 3 Normal [facility] Progress Noteon 02-12-2023 Progress Note [facility] [address] [place] [id number] Dept: [phone] Dept Chief Complaint Patient presents with New [...] prior to signing but minor errors in waste reduction coordinator may have occurred. Normal [facility] Basophil percentageOrdered B y: Dr. Herrera on 11-23-2022 Chloride [Moles/Vol] 106 mmol/L 98-107 [facility] Cholesterol [Mass/Vol] 380 mg/dL <200 [facility] Comment on above: <200 mg/dL Desirable 200-240 mg/dL Borderline >240 mg/dL High Risk Glucose [Mass/Vol] 105 mg/dL 74-106 [facility] Comment on above: Fasting Glucose resu lt from 100 to 125 mg/dL suggests IMPAIRED HOMEOSTASIS per A.D.A. criteria. Potassium [Moles/Vol] 3.9 mmol/L 3.5-5.1 [facility] Sodium [Moles/Vol] 141 mmol/L 136-145 [facility] Triglyceride [Mass/Vol] 96 mg/dL <199 [facility] Comment on above: The drugs N-Acetylcy steine and Metamizole may falsely depress this assay.Serum Triglycerides Reference Interval Normal <150 mg/dL Borderline high 150 - 199 mg/dL High 200 - 499 mg/dL Very High > or = 500 mg/dL Laboratory - Chemistry and C hemistry - challengeOrdered By: Dr. Herrera on 11-23-2022 ALT [Catalytic activity/Vol] 31 U/L 13-56 [facility] CO2 [Moles/Vol] 27.0 mmol/L 21.0-32.0 [facility] Urea nitrogen/Creatinine [Mass ratio] 34.4 mg/mg 10-20 [facility] No Panel InformationOrdered By: Dr. Herrera on 11-23-2022 Estimated GFR (MDRD) Amer 106 mL/min >60 [facility] Comment on above: GFR Calc Estimated GFR (MDRD) Non-Af Amer 88 mL/min >60 [facility] Comment on above: Non- GFR Calc Serum or plasma calcium og urement (mass/volume)Ordered By: Dr. Herrera on 11-23-2022 Calcium [Mass/Vol] 9.3 mg/dL 8.5-10.1 [facility] Serum or plasma cholesterol in HDL measurement (mass/volume)Ordered By: Dr. Herrera on 11-23-2022 Cholesterol in HDL [Mass/Vol] 56 mg/dL >40 [facility] Comment on above: The drugs N-Acetylcy steine and Metamizole may falsely depress this assay. Reference Range HDL <40 mg/dL Low HDL Cholesterol HDL >or= 60 mg/dL High HDL Cholesterol Serum or plasma cholesterol in VLDL measurement (mass/volume)Ordered By: Dr. Herrera on 11-23-2022 Cholesterol in VLDL [Mass/Vol] 19 mg/dL 5-40 [facility] Serum or plasma creatinine m easurement (mass/volume)Ordered By: Dr. Herrera on 11-23-2022 Creatinine [Mass/Vol] 0.70 mg/dL 0.55-1.02 [facility] Comment on above: The validity of the calculated GFR & GFRAA in patients over 70 years has not been determined. Clinical correlation is essential. Serum or plasma low density lipoprotein (LDL) cholesterol measurement (mass/volume)Ordered By: Dr. Herrera on 11-23-2022 Cholesterol in LDL [Mass/Vol] 305 mg/dL 0-130 [facility] Serum or plasma urea nitroge n measurement (mass/volume)Ordered By: Dr. Herrera on 11-23-2022 Urea nitrogen [Mass/Vol] 24 mg/dL 7-18 [facility] Thin prep Papanicolaou smear with manual screeningOrdered By: Dr. Herrera on 11-23-2022 Thin prep Papanicolaou smear with manual screening 17 U/L 15-37 [facility] Thin prep Papanicolaou smear with manual screening 8 5-15 [facility] Basophil percentageon 2021 Chloride [Moles/Vol] 106 mmol/L 98-107 [facility] Work Phone: Cholesterol [Mass/Vol] 392 mg/dL <200 [facility] Work Phone: [phone] Comment on above: <200 mg/dL Desirable 200-240 mg/dL Borderline >240 mg/dL High Risk Glucose [Mass/Vol] 89 mg/dL 74-106 [facility] Work Phone: Potassium [Moles/Vol] 4.1 mmol/L 3.5-5.1 [facility] Work Phone: [phone] Sodium [Moles/Vol] 140 mmol/L 136-145 [facility] Work Phone: [phone] Triglyceride [Mass/Vol] 119 mg/dL [facility] Work Phone: Comment on above: The drugs N-Acetylcy steine and Metamizole may falsely depress this assay.Serum Triglycerides Reference Interval Normal <150 mg/dL Borderline high 150 - 199 mg/dL High 200 - 499 mg/dL Very High > or = 500 mg/dL Laboratory - Chemistry and C hemistry - challengeon 11-10-2021 CO2 [Moles/Vol] 27.0 mmol/L 21.0-32.0 [facility] Work Phone: Urea nitrogen/Creatinine [Mass ratio] 23.9 mg/mg 10-20 [facility] Work Phone: No Panel Informationon 11-10 Estimated GFR (MDRD) Amer 97 mL/min >60 [facility] Work Phone: Comment on above: GFR Calc Estimated GFR (MDRD) Non-Af Amer 81 mL/min >60 [facility] Work Phone: Comment on above: Non- GFR Calc Serum or plasma calcium og urement (mass/volume)on 11-10-2021 Calcium [Mass/Vol] 9.8 mg/dL 8.5-10.1 [facility] Work Phone: Serum or plasma cholesterol in HDL measurement (mass/volume)on 11-10-2021 Cholesterol in HDL [Mass/Vol] 55 mg/dL [facility] Work Phone: Comment on above: The drugs N-Acetylcy steine and Metamizole may falsely depress this assay. Reference Range HDL <40 mg/dL Low HDL Cholesterol HDL >or= 60 mg/dL High HDL Cholesterol Serum or plasma cholesterol in VLDL measurement (mass/volume)on 11-10-2021 Cholesterol in VLDL [Mass/Vol] 24 mg/dL 5-40 [facility] Work Phone: Serum or plasma creatinine m easurement (mass/volume)on 11-10-2021 Creatinine [Mass/Vol] 0.75 mg/dL 0.55-1.02 [facility] Work Phone: Comment on above: The validity of the calculated GFR & GFRAA in patients over 70 years has not been determined. Clinical correlation is essential. Serum or plasma low density lipoprotein (LDL) cholesterol measurement (mass/volume)on 11-10-2021 Cholesterol in LDL [Mass/Vol] 313 mg/dL 0-130 [facility] Work Phone: Serum or plasma urea nitroge n measurement (mass/volume)on 11-10-2021 Urea nitrogen [Mass/Vol] 18 mg/dL 7-18 [facility] Work Phone: Thin prep Papanicolaou smear with manual screeningon 11-10-2021 Thin prep Papanicolaou smear with manual screening 7 5-15 [facility] Work Phone: CNCOon 03-18-2017 [facility]: [id number]: Mammography CoordinatorService: (none)Author Type: PhysicianType: LetterFiled: 03/22/2017 11:32 PMNote Text:March 18, 2017 PID: [id number] [address] [place] [address] Rashmi Velásquez [place] [id number] Ms. Nunez,We are pleased to inform you that the results of your recent breastimaging exam on 03/18/2017 are normal. Early detection of cancer is veryimportant. We also understand recommendations regarding breast cancerscreening are controversial. Please discuss with your primary careprovider which strategy is best for you and whether a mammogram is rightfor you.Your imaging studies and report will [facility] and are available for yourcontinuing care.Thank you for allowing us to help in meeting your health care needs.Sincerely,Dr. Drummondpreerasmo RadiologistWTrinity Health (Normal over 40) Normal [facility] SCREENINGon 03-18-2017 [facility] SCREENING * * *Final Report* * *DATE OF EXAM: Mar 18 2017 8:52AM WRW [id number] - [facility] SCREENING / REASON: multiple diagnoses * * * * Physician Interpretation * * * *RESULT: #[id number] - [facility] SCREENINGBILATERAL DIGITAL SCREENING MAMMOGRAM WITH CAD: 03/18/2017HISTORY: Screening Mammogram - patient reports NO breast symptoms /priors available for comparison.RESULT:TECHNI QUE: The study was acquired using full field digital technology and interpreted from soft copy.Current study was also evaluated with a Computer Aided Detection (CAD).Comparison is made to exams dated: 03/04/2016 mammogram, 02/27/2015 mammogram, and 02/20/2014 mammogram - [facility].There are scattered fibroglandular elements in both breasts.There are post operative findings in the left breast.No significant masses, calcifications, or other findings are seen in either breast.There has been no significant interval change.IMPRESSION: NEGATIVEThere is no mammographic evidence of malignancy.A 1 year screening mammogram is recommended. The exam was reviewed by a staff physician.Krystal Denis M.D.ch,alverto/sulaiman:03/18/20 17 10:01:18Imaging Technologist: Anjelica BOWEN(John)(Darrell), [facility]Sletter sent: Normal over 40Mammogram BI-RADS: 1 NegativeTranscriptionist : OrenradTranscribe Date/Time: Mar 18 2017 8:52ADictated by: JACIEL DENIS MDThis examination was interpreted and the report reviewed and electronically signed by: KRYSTAL SANCHEZ MD on Mar 18 2017 10:01AM EST Normal [facility] PROGRESSon 03-18-2017 PROGRESS HNO ID: [id number]: Angélica Sheppard RtService: (none)Author Type: (none)Type: Progress NotesFiled: 03/18/2017 8:54 AMNote Text: Radiology Service Progress NotePATIENT NAME: Viki NunezMRN: [id number] OF SERVICE: March 18, 2017TIME: 8:30 AMPATIENT IDENTITY VERIFICATION COMPLETED USING TWO (2) METHODS: Patientconfirmed name verbally and Date of .PATIENT GENDER DATA: Female. status: : NoBreastfeeding status: NO.PATIENT RELEVANT IMPLANT DATA REVIEWED: Not ApplicableRADIOLOGY DEPARTMENT: [facility] mammogramPERIPHERAL IV DATA: Not applicableSIGNED BY: Angélica Sheppard RtS2016 8:30 AM Normal [facility] Vital Signs Date Time Vital Sign Value Performing Clinician Jimbo moeller 11-22-2024 08:30-0400 Body height 154.[address] Angelique Herrera MD Work Phone: [facility] 11-22-2024 08:30-0400 Body mass index (BMI) [Ratio] 23.8 kg/m2 Dr. Angelique Herrera MD Work Phone: [facility] 11-22-2024 08:30-0400 Body weight 57.[address] Angelique Herrera MD Work Phone: [facility] 11-22-2024 08:30-0400 Diastolic blood pressure 65 mm[Hg] Dr. Angelique Herrera MD Work Phone: [facility] 11-22-2024 08:30-0400 Heart rate 73 /min Dr. Angelique Herrera MD Work Phone: [facility] 11-22-2024 08:30-0400 Respiratory rate 18 /min Dr. Angelique Herrera MD Work Phone: [facility] 11-22-2024 08:30-0400 SaO2% (BldA) [Mass fraction] 97 % Dr. Angelique Herrera MD Work Phone: [facility] 11-22-2024 08:30-0400 Systolic blood pressure 115 mm[Hg] Dr. Angelique Herrera MD Work Phone: [facility] 12-17-2022 14:23-0400 Body height 154.94 cm [facility] Encounters Encounter Date Encounter Type Care Provider Facility Start: 03-26-2025 End: 03-26-[address] Angelique Herrera MD Work Phone: -[facility] Start: 03-26-2025 End: 03-26-[address] Ninoska Sales MD -[facility] Start: 03-26-2025 End: 03-26-2025 ambulatory Angelique Herrera Facility:[facility] Start: 01-02-2025 End: 01-02-[address] Angelique Herrera MD Work Phone: -[facility] Start: 01-02-2025 End: 01-02-2025 Patient encounter procedure Anjel Christinbridget TRAFFIC SUPERINTENDENT-C -[facility] Work Phone: Start: 01-02-2025 End: 01-02-2025 ambulatory Anjel McMorrow TRAFFIC SUPERINTENDENT Facility:[facility] Start: 12-01-2024 End: 12-01-[address] Angelique Herrera MD Work Phone: [facility] Work Phone: Start: 12-01-2024 End: 12-01-[address] Angelique Herrera MD -[facility] Start: 12-01-2024 End: 12-01-2024 ambulatory Angelique Herrera Facility:[facility] Start: 11-22-2024 End: 11-22-[address] Jw Camacho MD -[facility] Work Phone: Start: 11-22-2024 End: 11-22-[address] Angelique Herrera MD Work Phone: [facility] Work Phone: Start: 03-03-2023 End: 03-03-2023 ambulatory [facility] Work Phone: Start: 03-03-2023 End: 03-03-2023 Patient encounter procedure [facility]-Laboratory, Specimen Work Phone: Start: 02-12-2023 End: 02-12-2023 ambulatory [facility] Start: 02-09-2023 End: 02-09-2023 ambulatory [facility] Work Phone: Start: 02-09-2023 End: 02-09-2023 Discharged Recurring [facility]-Physical Therapy Work Phone: Start: 12-22-2022 Registered Rec[facility]ring [facility] Start: 12-17-2022 End: 12-17-2022 ambulatory [facility] Work Phone: Start: 12-17-2022 End: 12-17-2022 Patient encounter procedure [facility]-Outpatient Breast Imaging Start: 12-08-2022 End: 12-08-2022 [facility] Start: 11-23-2022 End: 11-23-2022 [facility] Start: 11-10-2021 End: 11-10-2021 [facility] Start: 03-18-2017 End: 03-18-2017 [facility] TAD ZELAYA [facility] Kim Procedures Date Procedure Procedure Detail [...] results 12 Lead EKG performed by KEVIN [facility] Hepatic function panel [facility] Lipid 1996 panel - Serum or Plasma [facility] Payers Date Payer Category Payer Self-pay [id number] 2015 Medicare [id number] 01b [id number] 2015 Unknown [id number] Unknown [id number] Unknown [id number] Unknown [id number] [id number] [id number] Social History Date Type Detail Facility Start: [facility]11[facility] Start: 1950 Sex Assigned At Female [facility] Start: 06-11-2020 [facility] Never [facility] tobacco (finding) [facility] Sex Female [facility] Evaluation note 11-22-2024 Note Date & Type Note Facility 11-22-2024 Evaluation note Diagnosis Onset Date Resolution Family history of sudden cardiac acute November 22, 2024 8:26am Hyperlipidemia acute November 22, 2024 8:26am Hypertension chronic November 22 8:26am [facility] Work Phone: Progress note 11-22-2024 Note Date & Type Note Facility 11-22-2024 Progress note [facility] Progress note 11-22-2024 Note Date & Type Note Facility 11-22-2024 Progress note Note Date/Time November 22, 2024 9:10am [facility] [address] [place] [address] OFFICE VISIT Date of Service: 11/22/24 MR#: [id number] Acct: [id number] Name: VIKI NUNEZ Rep #: [id number] : 1950 Provider: Dr. Don Camacho MD Age/Sex: 74/F [place] [facility] Status: Signed with Addenda ADDENDUM by Dr. [...] Orders: Orders 12 Lead [place] [facility] [place] E78.5 - Hyperlipidemia, unspecified Lipid Profile [...] 2023 total cholesterol was 403 HDL 52 VWM320 and triglycerides 141. 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 Angelique Herrera MD ~ [place] [employer] Work Phone: Discharge summary 02-09-2023 Note Date & Type Note Facility 02-09-2023 Discharge summary Note Date/Time February 09, 2023 9:5 1am [facility] Physical Therapy [facility] [address] [place] [address] [address] [place] [address] / REHABILITATION SERVICES DISCHARGE SUMMARY MR#: [id number] Acct: [id number] Name: VIKI NUNEZ Rep #: [id number] : 1950 72 From: Kimberly De Paz Referring Dr.: Dr. Angelique Herrera MD Status: REG RCR Insurance: MEDICARE PART A B [employer] [facility] Discharge Summary D/C summary: It has been [...] D/C Information Discharge Comments: DC PT to [facility] d/c sentence: If there are questions or concerns regarding this patient's physical therapy, please feel free to call me at [phone]. Thank you for the referral of thispatient. Sincerely, GINNY West Balance/Gait/Functional tests Balance/Special Test Scores Oswestry Low Back Score: 0 <Electronically signed by Kimberly Gonsales MPT> 02/09/23 0951 CC: Dr. Angelique Herrera MD ~ Signed [facility] Work Phone: Discharge summary 01-31-2023 Note Date & Type Note Facility 01-31-2023 Discharge summary Note Date/Time January 04, 2023 10:28 am [facility] [address] [place] [address]. [address] [place] [address] / REHABILITATION SERVICES DISCHARGE SUMMARY MR#: [id number] Acct: [id number] Name: VIKI NUNEZ Rep #: [id number] : 1950 72 From: Cert. VILMA KruseT, OCS Referring Dr.: Dr. Angelique Herrera MD Status: REG RCR Insurance: MEDICARE PART A B [employer] [facility] Discharge Summary D/C summary: It has been [...] please feel free to call me at [phone]. Thank you for the referral of thispatient. Sincerely, Jason Jurado, PT, Cert MDT, OCS Balance/Gait/Functional tests Balance/Special Test Scores Oswestry Low Back Score: 25 <Electronically signed by Jason Jurado PT, Cert. BELIA, OCS> 01/31/23 1703 CC: Dr. Angelique Herrera MD ~ JLA Signed [facility] Work Phone: Evaluation note Note Date & Type Note Facility Evaluation note No assessment information availa ble [facility] Work Phone: Evaluation note Note Date & Type Note Facility Evaluation note Diagnosis Onset Date Resolution Family history of sudden cardiac acute November 22, 2024 8:26am Hyperlipidemia acute November 22, 2024 8:26am Hypertension chronic November 22 8:26am [facility] Work Phone: Reason for referral (narrative) Note Date & Type Note Facility Reason for referral (narrative) No reason for referral information available [facility] Work Phone: Summary Purpose Family [...] Yes January 19, 2019 10:12am 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 Yes January 19 10:12am Chief Complaint and [...] section and content) DATE CREATED AUTHOR 12/29/2017 [facility] DATE CREATED AUTHOR AUTHOR'S ORGANIZ ATION 02/13/2023 [facility] DATE CREATED AUTHOR AUTHOR'S ORGANIZ ATION 04/07/2025 [facility] Goals (unrecognized section and content) Goals may [...] 2025 End: January 02, 2025 Anjel Adams TRAFFIC SUPERINTENDENT, TRAFFIC SUPERINTENDENT-C Attending Provider Active Start: January 02, 2025 End: January 02, 2025 Anjel Adams TRAFFIC SUPERINTENDENT, TRAFFIC SUPERINTENDENT-C Referring Provider Active Start: January 02, 2025 End: January 02, 2025 Team Status: Active Member Role/Relationship Status Dates Dr. Angelique Herrera MD Primary care physician Active Team Status: Inactive Member Role/Relationship Status Dates Dr. Angelique Herrera MD Primary care physician Active Start: January 02, 2025 End: January 02, 2025 Anjel Adams TRAFFIC SUPERINTENDENT, TRAFFIC SUPERINTENDENT-C Attending physician Active Start: January 02, 2025 End: January 02, 2025 Anjel [place] citykristie TRAFFIC SUPERINTENDENT, TRAFFIC SUPERINTENDENT-C Referring Provider Active Start: January 02, 2025 [...] BE BASED ON THE PRIMARY CLINICAL RECORDS. [employer] [facility]. provides no warranty or guarantee of the accuracy or completeness of information in this document.
--- NOTE | 2025-05-28 07:04 | CON.PCM.CA_ITS ---
Assessment & Plan Assessment/Plan (1) Acute non-ST elevation myocardial infarction (NSTEMI): PLAN: Patient presents for chest discomfort and EKG changes and abnormal troponin suggestive of a non-ST elevation myocardial infarction. Patient agreeable to undergoing a left heart catheterization this morning. Continue aspirin Continue Repatha Start beta-estela with metoprolol 25 mg twice a day Patient has categorically said that she does not want coronary bypass surgery if that is an option. She would prefer medical therapy and/or stenting. (2) Family history of sudden cardiac : PLAN: Patient does have a family history of sudden cardiac . Likely evidenced by the significant family history. (3) Hyperlipidemia: QUALIFIERS: Hyperlipidemia type: pure hypercholesterolemia Q ualified Code(s): E78.00 - Pure hypercholesterolemia, unspecified PLAN: Patient with familial hyperlipidemia and currently on PCSK9 2 inhibitor. Will continue risk factor modification (4) Hypertension: QUALIFIERS: Hypertension type: primary hypertension Qualified Code(s): I10 - Essential (primary) hypertension PLAN: Will currently continue with the JAIMIE inhibitor and beta-estela Lopressor 25 mg twice a day. HPI Consult Data Date of Consult: 05/28/25 HPI Narrative HPI Narrative: FATOUMATA NUNEZ, is a 75 F who presents with chest pain. She presented to the emergency room with chest discomfort which she said initially started on 1119. It was described as a heaviness associated with mild nausea and diaphoresis. The following day she went on a walk and she experienced similar discomfort and so decided to abort her walk. She had similar discomfort yesterday as well and so presented to the emergency room. In the emergency room her initial EKG did demonstrate mild changes but then subsequently resolved. She has not had any further chest discomfort. She has a very strong family history of coronary disease and she states she is the only one of her siblings who has not had a myocardial infarction. Both of her parents also had coronary disease. Two of her brothers in her 60s from coronary disease and her father at 58 from coronary artery disease. She also has a sister who had coronary bypass surgery. She previously has not tolerated statins due to myalgias. At the time my evaluation her chest pain had resolved. She stated was substernal and burning in nature. She had no radiation but did have associated shortness of breath. No associated diaphoresis or nausea/vomiting. She has no previous cardiac history. She does take aspirin 81 mg daily. Vital signs on presentation showed temperature of 97.0, heart rate was 92, respiratory rate was 20, blood pressure was 174/76 with a repeat of 143/72 and pulse ox was 98% on room air. CBC was unremarkable. Coags were normal. Chemistry panel showed just a mildly elevated BUN at 23 and normal electrolytes. Creatinine was normal at 0.87. Glucose is 118 nonfasting. Magnesium was normal 2.0. Her initial troponin was 406. Chest x-ray was unremarkable for acute findings. EKG showed ST depression in a greater than 0.5 mm in the anterior lateral leads most notably V3 through V6. This appears to have normalized. She is currently pain-free. [facility], LAT[facility] Medical History Colon polyp Hyperlipidemia Hypertension Giant cell tumor of tendon sheath Hearing problem Breast cancer Breast lump Bone fracture Home Medications ?Medication ?Instructions ?Recorded ?Last Taken ?Type hydrochlorothiazide 25 mg tablet 25 mg PO DAILY 01/19/19 History aspirin 81 mg tablet,delayed 81 mg PO QDAY 11/13/24 Un known History release (Adult Low Dose Aspirin) glucosamine-chondroitin 250 mg-200 2 tab PO QDAY 11/13 Unknown History mg tablet (Osteo Bi-Flex) lisinopril 40 mg tablet 40 mg PO QDAY 11/13/24 Unkno wn History melatonin 10 mg capsule 10 mg PO HS PRN sleep Unknown History zolpidem 10 mg tablet (Ambien) 10 mg PO QHS 11/13/24 U nknown History evolocumab 140 mg/mL subcutaneous 140 mg subcut Q2W #2 mL 11/22/24 Unknown Rx pen injector (Repatha SureClick) Allergy/AdvReac Type Severity Reaction Status Date / Time [id number] Reductase AdvReac myalgia Verified 05/27/25 23:21 Inhibitor Family History Father , age 58 Hypertension CAD (coronary artery disease) Mother Diabetes Myocardial infarction Brother , age 62 CAD (coronary artery disease) Brother , age 64 CAD (coronary artery disease) Sister CAD (coronary artery disease) Sister Hx of CABG CAD (coronary artery disease) Brother Myocardial infarction Brother Myocardial infarction Surgical History History of lumpectomy of left breast Social History Smoking Status: Never smoker alcohol intake: never substance use type: does not use additional social history: DOES TAKE ASPIRIN NEEDED DOES TAKE IBUPROFEN NEEDED ROS Constitutional Constitutional: Denies fever(s) or weight loss Eyes Eyes: Reports systems reviewed and no addt'l complaints, except as documented ENT HEENT: Reports systems reviewed and no addt'l complaints, except as documented Cardiovascular Cardiovascular: Reports chest pain at rest, chest pain with activity, dyspnea at rest and dyspnea on exertion; Denies edema, palpitations or paroxysmal nocturnal dyspnea Respiratory/Chest Respiratory/Chest: Reports dyspnea on exertion, shortness of breath at rest and shortness of breath with exertion; Denies productive cough Gastrointestinal Gastrointestinal: Denies change in bowel habits, nausea, vomiting or weight changes Genitourinary Genitourinary: Denies difficulty urinating Musculoskeletal Musculoskeletal: Denies joint stiffness or muscle weakness Integumentary Integumentary: Denies lesions Neurologic Neurologic: Denies dizziness or syncope Psychiatric Psychiatric: Denies anxiety Endocrine Endocrinology: Denies excessive sweating or fatigue Hematologic/Lymphatic Hematologic/Lymphatic: Denies anemia Allergic/Immunologic Allergic/Immunologic: Denies seasonal rhinorrhea Physical Exam Const alert and oriented x3 Orientation / Consciousness: awake HEENT normocephalic Neck full ROM Carotids: normal carotid upstroke Chest inspection of chest normal Cardio regular rate and regular rhythm Heart Sounds: S1 normal, S2 normal and murmur systolic Extremity no clubbing, cyanosis or edema Objective Data Vital Signs: Vital Signs Temp Pulse Resp BP Pulse Ox O2 Del Method 98.3 F 74 17 146/74 H 96 Room Air 05/28/25 01:59 05/28/25 02:30 05/28/25 02:30 05/28/25 07:00 05/28/25 02:30 05/28/25 02:30 Oxygen Delivery Method Room Air Weight: 124 lb 12.506 oz Body Mass Index (BMI) 23.6 Intake & Output: Intake and Output for Last 24 Hours 05/26/25 05/27/25 05/28/25 23:59 23:59 23:59 Intake Total 14.85 / 14.85 Balance 14.85 / 14.85 Lab / Micro Data 05/28/25 03:29 05/28/25 03:29 Labs: Laboratory Results - last 24 hr 05/27/25 23:38: WBC 8.9, RBC 4.16 L, Hgb 12.9, Hct 38.3, MCV 92.1, MCH 31.0, MCHC 33.7, RDW Std Deviation 41.8, RDW Coeff of Sanjay 12.2, Plt Count 297, MPV 9.3, Immature Gran % (Auto) 0.200, Neut % (Auto) 56.1, Lymph % (Auto) 31.5, Meriwether % (Auto) 8.4, Eos % (Auto) 3.0, Baso % (Auto) 0.8, Absolute Neuts (auto) 5.0, Absolute Lymphs (auto) 2.80, Nucleated RBC % 0, PT 13.0, INR 1.0, APTT 29.4, Sodium 140, Potassium 3.5, Chloride 101, Carbon Dioxide 24.3, Anion Gap 15, BUN 23 H, Creatinine 0.87, Estim Creat Clear Calc 42.16 L, Est GFR (MDRD) Non-Af 70, BUN/Creatinine Ratio 26.9 H, Glucose 118 H, Calcium 10.0, Magnesium 2.0, T roponin T High Sens 406 H* 05/28/25 01:52: Troponin T Hi Sens 2 Hr 486 H* 05/28/25 03:29: WBC 8.3, RBC 3.82 L, Hgb 11.9 L, Hct 34.7 L, MCV 90.8, MCH 31.2, MCHC 34.3, RDW Std Deviation 40.3, RDW Coeff of Sanjay 12.2, Plt Count 277, MPV 9.4, Sodium 140, Potassium 3.8, Chloride 103, Carbon Dioxide 21.9, Anion Gap 15, BUN 23 H, Creatinine 0.68 L, Estim Creat Clear Calc 45.85 L, Est GFR (MDRD) Non- Af 91, BUN/Creatinine Ratio 33.4 H, Glucose 125 H, Calcium 9.9, Phosphorus 4.4, Magnesium 2.0, Total Bilirubin 0.31, AST 64 H, ALT 33, Alkaline Phosphatase 112 H, Troponin T Hi Sens 4Hr 494 H*, Total Protein 7.1, Albumin 4.3, Globulin 2.8, Albumin/Globulin Ratio 1.6, Triglycerides 73, Cholesterol 300 H, LDL Cholesterol, Calc 234, VLDL Cholesterol 15, HDL Cholesterol 55, Cholesterol/HDL Ratio 5.49, TSH 3.670 Cardiology Labs/Tests 05/27/25 23:38: WBC 8.9, RBC 4.16 L, Hgb 12.9, Hct 38.3, MCV 92.1, MCH 31.0, MCHC 33.7, Plt Count 297, MPV 9.3, Immature Gran % (Auto) 0.200, Neut % (Auto) 56.1, Lymph % (Auto) 31.5, Meriwether % (Auto) 8.4, Eos % (Auto) 3.0, Baso % (Auto) 0.8, Absolute Neuts (auto) 5.0, Nucleated RBC % 0, PT 13.0, INR 1.0, APTT 29.4, Sodium 140, Potassium 3.5, Chloride 101, Carbon Dioxide 24.3, Anion Gap 15, BUN 23 H, Creatinine 0.87, Est GFR (MDRD) Non-Af 70, BUN/Creatinine Ratio 26.9 H, G lucose 118 H, Calcium 10.0, Magnesium 2.0 05/28/25 03:29: WBC 8.3, RBC 3.82 L, Hgb 11.9 L, Hct 34.7 L, MCV 90.8, MCH 31.2, MCHC 34.3, Plt Count 277, MPV 9.4, Sodium 140, Potassium 3.8, Chloride 103, Carbon Dioxide 21.9, Anion Gap 15, BUN 23 H, Creatinine 0.68 L, Est GFR (MDRD) Non-Af 91, BUN/Creatinine Ratio 33.4 H, Glucose 125 H, Calcium 9.9, Phosphorus 4.4, Magnesium 2.0, Total Bilirubin 0.31, Triglycerides 73, Cholesterol 300 H, VLDL Cholesterol 15, HDL Cholesterol 55, Cholesterol/HDL Ratio 5.49 Rhythm: EKG: ECHO: Stress Test: Cardiac Cath: PCI: CT Surgery: Holter monitor: EPS: PPM: CXR: Chest CT Scan: Radiography Diagnostic Testing: Radiology Impression Chest X-Ray 05/27/25 00:15 IMPRESSION: As above. Reading Location: [facility] JEREMY Risk Score for UA/STEMI Assesmment (YES = 1) Risk Stratification Applicable: Yes Age > or = 65: Yes > or = 3 CAD risk factors (HTN, Hypercholesterolemia, Diabetes, family hx, current smoker): Yes Known CAD (Stenosis > or = 50%): No ASA used in past 7 days: No Severe angina (> or = 2 episodes in 24 hrs): No EKG ST change > or = 0.5mm: Yes Positive cardiac markers: Yes Score JEREMY Risk Score of mortality/ recurrent ischemic event over the next 14 days: 4 = 19.9% - Intermediate
[2025-05-28] MEDS: 0.9% Saline Lock 10 ML Syringe IV ×2 (07:34→08:12)
[2025-05-28] MEDS: Aspirin E.C. 81 MG Tablet PO (07:35)
[2025-05-28 08:03] LABS: Partial Thromboplast Time 65.3 Seconds (24.1-36.2)
--- NOTE | 2025-05-28 11:12 | PN_ITS ---
Subjective Subjective Patient seen and examined with her nurse by her bedside. She had no active complaints. Her sister, and daughter were by her bedside. She denied any recurrence of her chest pain since admission. She was admitted to the alcohol. She had cardiac cath today and per cardiology she had severe triple- vessel disease. Ferry Captain told me that patient says she did not want to have any surgical intervention. Plan is for medical management. She has remained hemodynamically stable. Objective Data Objective Data Vital Signs: Vital Signs Temp Pulse Resp BP Pulse Ox O2 Del Method 97.5 F L 72 17 121/67 H 96 Room Air 05/28/25 07:40 05/28/25 10:00 05/28/25 10:00 05/28/25 10:00 05/28/25 10:00 05/28/25 10:00 Oxygen Delivery Method Room Air Weight: 124 lb 12.506 oz Body Mass Index (BMI) 23.6 Intake & Output: Intake and Output for Last 24 Hours 05/26/25 05/27/25 05/28/25 23:59 23:59 23:59 Intake Total 61.25 / 61.25 Balance 61.25 / 61.25 Lab / Micro Data 05/28/25 03:29 05/28/25 03:29 Labs: Laboratory Results - last 24 hr 05/27/25 23:38: WBC 8.9, RBC 4.16 L, Hgb 12.9, Hct 38.3, MCV 92.1, MCH 31.0, MCHC 33.7, RDW Std Deviation 41.8, RDW Coeff of Sanjay 12.2, Plt Count 297, MPV 9.3, Immature Gran % (Auto) 0.200, Neut % (Auto) 56.1, Lymph % (Auto) 31.5, Bracken % (Auto) 8.4, Eos % (Auto) 3.0, Baso % (Auto) 0.8, Absolute Neuts (auto) 5.0, Absolute Lymphs (auto) 2.80, Nucleated RBC % 0, PT 13.0, INR 1.0, APTT 29.4, Sodium 140, Potassium 3.5, Chloride 101, Carbon Dioxide 24.3, Anion Gap 15, BUN 23 H, Creatinine 0.87, Estim Creat Clear Calc 42.16 L, Est GFR (MDRD) Non-Af 70, BUN/Creatinine Ratio 26.9 H, Glucose 118 H, Calcium 10.0, Magnesium 2.0, T roponin T High Sens 406 H* 05/28/25 01:52: Troponin T Hi Sens 2 Hr 486 H* 05/28/25 03:29: WBC 8.3, RBC 3.82 L, Hgb 11.9 L, Hct 34.7 L, MCV 90.8, MCH 31.2, MCHC 34.3, RDW Std Deviation 40.3, RDW Coeff of Sanjay 12.2, Plt Count 277, MPV 9.4, Sodium 140, Potassium 3.8, Chloride 103, Carbon Dioxide 21.9, Anion Gap 15, BUN 23 H, Creatinine 0.68 L, Estim Creat Clear Calc 45.85 L, Est GFR (MDRD) Non- Af 91, BUN/Creatinine Ratio 33.4 H, Glucose 125 H, Calcium 9.9, Phosphorus 4.4, Magnesium 2.0, Total Bilirubin 0.31, AST 64 H, ALT 33, Alkaline Phosphatase 112 H, Troponin T Hi Sens 4Hr 494 H*, Total Protein 7.1, Albumin 4.3, Globulin 2.8, Albumin/Globulin Ratio 1.6, Triglycerides 73, Cholesterol 300 H, LDL Cholesterol, Calc 234, VLDL Cholesterol 15, HDL Cholesterol 55, Cholesterol/HDL Ratio 5.49, TSH 3.670 05/28/25 07:30: APTT 65.3 H Radiography Diagnostic Testing: Radiology Impression Chest X-Ray 05/27/25 00:15 IMPRESSION: As above. Reading Location: [facility] Echocardiogram 05/28/25 02:59 Interpretation Summary Normal LV size. The left ventricular ejection fraction is 55 %. Mild segmental systolic dysfunction (see wall motion). Stage 1 diastolic dysfunction. Mild (1+) eccentric mitral valve insufficiency. Mild focal aortic valve calcification. Mean aortic valve gradient 13 mmHg. Mild aortic stenosis. Ordering Physician: Yue Villanueva Referring Physician: Ninoska Sales Performed By: Holly Goel RCS Physical Exam Const alert, oriented x3 and no apparent distress General Appearance: cooperative HEENT normocephalic, head/scalp atraumatic, moist oral mucous membranes and oropharynx normal Eyes EOMs intact bilaterally Neck supple and no JVD Resp normal respiratory effort, normal air movement and clear to auscultation bilaterally Cardio regular rate, regular rhythm, S1 normal heart sound, S2 normal heart sound and no murmurs GI normal to inspection, nondistended, normoactive bowel sounds, soft to palpation and non-tender Extremity normal capillary refill, no clubbing, cyanosis or edema and no calf tenderness General Extremity: no tenderness to palpation of joints or extremities Skin General Skin Exam: no breakdown and turgor normal Neuro no focal motor deficits and no sensory deficits noted Motor Exam: strength 5/5 throughout Psych thought process normal, cooperative and affect normal Appearance: appropriate Assessment & Plan Assessment/Plan (1) Acute non-ST elevation myocardial infarction (NSTEMI): PLAN: Plan #Severe CAD * admitted with a complaint of chest pain and found to have nonstemi * She has a very strong family history of CAD. Troponins were elevated and EKG showed ST depression in the anterior lateral leads most notably in V3 through V6 * Was started on heparin drip and nitro drip. She was also placed on her home dose of aspirin 81 mg daily and started on high intensity statin. * 2D echo done today and read is pending. She had cardiac cath which showed severe triple-vessel disease. 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 * * #Benign essential hypertension: On hydrochlorothiazide and lisinopril. 2D echo ordered and is pending. Management as per cardiology. #Hyperlipidemia: On statin #History of insomnia: On melatonin as needed and zolpidem #History of osteoarthritis: On glucosamine/chondroitin #DVT prophylaxis: On heparin Charges/Coding Visit Charges Inpatient E&M: 97002 Subs Hosp L2
--- NOTE | 2025-05-28 11:15 | CL.D_ITS ---
Patient Name: FATOUMATA NUNEZ Study Date: 05/28/2025 Performing: Devan Flores MD Ht: 61 inches 154.94 cm : 1950 Wt: 124.78 lbs 56.6 kg Age: 75 Gender: female BSA: 1.55 PROCEDURE(S) PERFORMED DC01-(95720)LHC/COR/LV CLINICAL PROFILE AND INDICATIONS Indications: ACS <= 24 hrs Heart Failure: None Stress/Imaging Stress/Image Study Performed: No CONCLUSIONS Severe triple-vessel disease is noted with no definitive culprit lesion. Preserved ejection fraction with lateral hypokinesis noted on echocardiogram. RECOMMENDATIONS Ideally patient needs coronary bypass surgery but as she has stated categorically she does not want the above and that does not appear to be any particularly easy to fix single-vessel which may be the culprit. Will therefore maximize medical therapy and see how she does. DESCRIPTION OF PROCEDURE The patient arrived to the procedure lab. The risks and benefits of the procedure as well as a full description of our services here and current unavailability of surgical backup were fully explained to the patient and/or their significant other prior to the catheterization. The Timeout was completed, verifying the correct patient and procedure. The patient's procedural site was prepped and draped in the usual fashion. Local anesthetic was given subcutaneously to right radial region with Lidocaine 2%. Using a modified Seldinger technique, arterial access was obtained via the right radial artery, a 6Fr sheath was inserted. Left Coronary Artery selective angiography was performed in multiple views using a 5 Fr. 4.0 [place] catheter. Right Coronary Artery selective angiography was then performed in multiple views using a 5 Fr. 4.0 [place] catheter. Left Ventriculography was performed in SANTOS projection using a 5 Fr. Pigtail catheter. LV to AO pullback pressures were then recorded.The arterial sheath was pulled and a TR Band was applied for hemostasis CORONARY ANGIOGRAPHY DOMINANCE: Right Dominant LEFT HEART ASSESSMENT Left Ventricular Ejection Fraction: by LV Gram 55 % Lateral Hypokinesis - Mild Normal Left Ventricular systolic function LEFT MAIN: Mild luminal irregularities LEFT ANTERIOR DESCENDING ARTERY: Medium size vessel tortuous with proximal irregular 60% stenosis, mid 70% stenosis, mid to distal long 80% stenosis and diffuse distal disease. CIRCUMFLEX ARTERY: Nondominant medium size vessel. First obtuse marginal branch is mildly diseased the ostium of the circumflex artery has a 60% stenosis, the second obtuse marginal branch has a 70% stenosis which then bifurcates in a tortuous. RIGHT CORONARY ARTERY: Dominant right coronary artery with a proximal 80% stenosis, a proximal to mid 80% stenosis, and then after the acute marginal branch a longer 99% stenotic lesion. COMPLICATIONS No Complications PROCEDURE MEDICATIONS Versed 1 mg IV Fentanyl 50 mcg IV Versed 1 mg IV Oxygen: 2 L/min via nasal cannula Heparin given IA 05/28/2025 10:40:14 Verapamil 2.5mg, Ntg 100mcgs, 3000 units of Heparin given IA 05/28/2025 10:40:14 SUMMARY OF HEMODYNAMIC DATA Time AIR REST ECG 10:29:09 AO 106/55 (78) SA 10:52:15 LV 116/6, 14 10:59:27 LV 116/4, 10 10:59:35 LV 115/7, 13 11:00:09 LVp 111/8, 19 11:00:14 AOp 114/57 (81) 11:00:21 11:13:47 Signed By Devan Flores MD On 05/28/2025 11:14:59 Devan Flores MD
--- NOTE | 2025-05-28 13:25 | CASEMGMT ---
RN CM Face to Face with patient for initial transition planning/care coordination assessment. RN CM introduced self and role at [facility]. Patient lying in bed, alert and oriented, family at bedside. Patient willing to participate in assessment and is able to answer all questions appropriately. Care providers, pharmacy, and demographics verified. Strata: 2 PCP: Henrry Specialists: Janice, postal carrier; Preferred Pharmacy: [facility] Insurance: [employer], [facility] Prescription Benefit: yes Living Will/HPOA: yes, son Kamran Hernandez LNOK: , daughter, son Living Arrangements: Patient lives with in a single story home with 2 steps and railing to enter the home. Patient states she is independent at home. Transportation: self, DME/HHC: Patient has shower chair, raised toilet, cane, walker, wheelchair, and grab bars at home. No previous HHC or SNF. Patient wishes to discharge home, denies need for home health at this time. Patient states she has no further needs or concerns at this time. CM to follow for discharge planning needs that may arise. Disposition Plan: Patient to discharge home with family support and follow-up plans in place. Ashli WHYTE, RN, CM
--- NOTE | 2025-05-28 14:34 | CHAPLAIN ---
Type of Pastoral Visit _x__ Initial Visit ___ Follow-up Visit ___ On-call Visit ___ General Patient Visit ___ Spiritual Assessment ___ Family Conference ___ Bereavement ___ Rapid Response ___ Code Blue ___ Other (describe below) Pastoral Care Referral From _x__ Patient _x__ Family ___ Nurse ___ Physician ___ Brusher Operator ___ Zig Zag Spring Machine Operator ___ Other (describe below) Sacrament/Intervention _x__ Active listening ___ Anointing ___ Restorationist ___ Bereavement ___ Communion _x__ Lynne exploration ___ ___ Life review _x__ Prayer _x__ Reconciliation ___ Sacrament of Sick _x__ Supportive presence ___ Wedding ___ Other (describe below) Pastoral Comments patient is welcoming and she is surrounded by family members; pt says that what would I do without lynne in God; pt had heart cath earlier and is waiting results; pt is looking forward to getting answers; family members are pleasant and engaging as well; told about future hopes; prayer requested and given
[2025-05-28] MEDS: MELATONIN 10 MG TABLET PO (21:14)
[2025-05-28] MEDS: Isosorbide DN 10 MG Tablet PO (21:15)
[2025-05-29 02:00] VITALS: BP 100/60; PULSE 74; RESP 14; TEMP 36.6; O2SAT 98
[2025-05-29 06:00] VITALS: BMI 24.6
[2025-05-29 06:31] LABS: Hematocrit 35.2 % (37-47); Hemoglobin 11.7 g/dL (12.0-15.0); Immature Granulocytes Count 0.030 X10^3/uL (0.0-0.0); Mean Corp Hgb Conc 33.2 g/dL (32-36); Mean Corpuscular Volume 92.4 fL (81-99); Mean Platelet Vol. 9.5 fl (6.2-12.0); NRBC Flagged by Analyzer 0 % (0-5); Platelet Count 282 K/mm3 (150-450); RBC Distribution Width CV 12.5 % (11.6-14.6); RBC Distribution Width SD 42.8 fl (35.1-43.9); Red Blood Count 3.81 M/mm3 (4.2-5.4); White Blood Count 6.8 K/mm3 (4.4-11.0)
[2025-05-29 07:11] LABS: Anion Gap 13 (5-15); BUN 31 mg/dL (4-19); BUN/Creat Ratio 24.4 RATIO (10-20); Calcium,Total 9.7 mg/dL (7.6-11.0); Carbon Dioxide 22.7 mmol/L (21.0-32.0); Chloride 104 mmol/L (98-108); Estimated Creatinine Clearance 31.89 ml/min (50-250); Glucose 147 mg/dL (70-99); Potassium 4.5 mmol/L (3.3-5.1)
--- NOTE | 2025-05-29 07:52 | PN.CARD_ITS ---
Subjective Subjective Patient seen and evaluated Objective Data Vital Signs: Vital Signs Temp Pulse Resp BP Pulse Ox O2 Del Method 97.9 F 74 14 100/60 98 Room Air 05/29/25 02:00 05/29/25 02:00 05/29/25 02:00 05/29/25 02:00 05/29/25 02:00 05/29/25 07:48 Oxygen Delivery Method Room Air Weight: 130 lb 8.218 oz Body Mass Index (BMI) 24.6 Intake & Output: Intake and Output for Last 24 Hours 05/27/25 05/28/25 05/29/25 23:59 23:59 23:59 Intake Total 65.45 / 65.45 Balance 65.45 / 65.45 Lab / Micro Data 05/29/25 05:51 05/29/25 05:51 Labs: Laboratory Results - last 24 hr 05/28/25 07:30: APTT 65.3 H 05/29/25 05:51: WBC 6.8, RBC 3.81 L, Hgb 11.7 L, Hct 35.2 L, MCV 92.4, MCH 30.7, MCHC 33.2, RDW Std Deviation 42.8, RDW Coeff of Sanjay 12.5, Plt Count 282, MPV 9.5, Immature Gran % (Auto) 0.400, Neut % (Auto) 70.4 H, Lymph % (Auto) 20.1, [place] % (Auto) 6.8, Eos % (Auto) 1.6, Baso % (Auto) 0.7, Absolute Neuts (auto) 4.8, Absolute Lymphs (auto) 1.36, Nucleated RBC % 0, Sodium 140, Potassium 4.5, Chloride 104, Carbon Dioxide 22.7, Anion Gap 13, BUN 31 H, Creatinine 1.26 H, E stim Creat Clear Calc 31.89 L, Est GFR (MDRD) Non-Af 45 L, BUN/Creatinine Ratio 24.4 H, Glucose 147 H, Calcium 9.7 Cardiology Labs/Tests 05/28/25 07:30: APTT 65.3 H 05/29/25 05:51: WBC 6.8, RBC 3.81 L, Hgb 11.7 L, Hct 35.2 L, MCV 92.4, MCH 30.7, MCHC 33.2, Plt Count 282, MPV 9.5, Immature Gran % (Auto) 0.400, Neut % (Auto) 70.4 H, Lymph % (Auto) 20.1, [place] % (Auto) 6.8, Eos % (Auto) 1.6, Baso % (Auto) 0.7, Absolute Neuts (auto) 4.8, Nucleated RBC % 0, Sodium 140, Potassium 4.5, Chloride 104, Carbon Dioxide 22.7, Anion Gap 13, BUN 31 H, Creatinine 1.26 H, E st GFR (MDRD) Non-Af 45 L, BUN/Creatinine Ratio 24.4 H, Glucose 147 H, Calcium 9.7 Rhythm: EKG: ECHO: Stress Test: Cardiac Cath: PCI: CT Surgery: Holter monitor: EPS: PPM: CXR: Chest CT Scan: Radiography Diagnostic Testing: Radiology Impression Echocardiogram 05/28/25 02:59 Interpretation Summary Normal LV size. The left ventricular ejection fraction is 55 %. Mild segmental systolic dysfunction (see wall motion). Stage 1 diastolic dysfunction. Mild (1+) eccentric mitral valve insufficiency. Mild focal aortic valve calcification. Mean aortic valve gradient 13 mmHg. Mild aortic stenosis. Ordering Physician: Yue Villanueva Referring Physician: Ninoska Sales Performed By: Holly Goel RCS Physical Exam Const alert and oriented x3 Orientation / Consciousness: awake HEENT normocephalic Neck full ROM Carotids: normal carotid upstroke Chest inspection of chest normal Cardio regular rate and regular rhythm Heart Sounds: S1 normal, S2 normal and murmur systolic Extremity no clubbing, cyanosis or edema Assessment & Plan Assessment/Plan (1) Acute non-ST elevation myocardial infarction (NSTEMI): PLAN: Patient presents for chest discomfort and EKG changes and abnormal troponin suggestive of a non-ST elevation myocardial infarction. Patient agreeable Cardiac catheterization demonstrated severe triple-vessel disease. As you know she says that she does not want bypass surgery so we will continue medical therapy Continue aspirin Continue Repatha Start beta-estela with metoprolol 25 mg twice a day Continue Plavix Patient has categorically said that she does not want coronary bypass surgery if that is an option. She would prefer medical therapy and/or stenting. (2) Family history of sudden cardiac : PLAN: Patient does have a family history of sudden cardiac . Likely evidenced by the significant family history. (3) Hyperlipidemia: QUALIFIERS: Hyperlipidemia type: pure hypercholesterolemia Q ualified Code(s): E78.00 - Pure hypercholesterolemia, unspecified PLAN: Patient with familial hyperlipidemia and currently on PCSK9 2 inhibitor. Will continue risk factor modification (4) Hypertension: QUALIFIERS: Hypertension type: primary hypertension Qualified Code(s): I10 - Essential (primary) hypertension PLAN: Will currently continue with the JAIMIE inhibitor and beta-estela Lopressor 25 mg twice a day. PLAN: Plan Patient to be discharged today for outpatient follow-up.
[2025-05-29 08:34] VITALS: BP 108/75; PULSE 71; RESP 18; TEMP 36.4; O2SAT 100
[2025-05-29 08:36] VITALS: PULSE 71
[2025-05-29] MEDS: Aspirin E.C. 81 MG Tablet PO (08:36)
[2025-05-29] MEDS: Isosorbide DN 10 MG Tablet PO (08:36)
[2025-05-29 10:16] VITALS: BP 92/58
--- NOTE | 2025-05-29 13:25 | DS.PCM_ITS ---
Providers Date of Admission: 05/28/25 Date of Discharge: 05/29/25 Primary Care Physician: Ninoska Sales MD Consultations 05/28/25 02:59 Consult: Cardiology Routine Consulting Provider: Rubi Moreno Reason for Consult: Chest Pain EMERGENT Consult: No MD Notified: Yes Date Notified: 05/28/25 Time Notified: 01:40 Method of Notification: ED Physician Initiated Reason For Visit: NSTEMI Diagnosis Discharge Diagnosis (1) Acute non-ST elevation myocardial infarction (NSTEMI): Status: Acute Code(s): I21.4 - Non-ST elevation (NSTEMI) myocardial infarction (2) Family history of sudden cardiac : Status: Acute Code(s): Z82.41 - Family history of sudden cardiac (3) Hyperlipidemia: Status: Acute Code(s): E78.5 - Hyperlipidemia, unspecified Qualifiers: Hyperlipidemia type: pure hypercholesterolemia Qualified Code(s): E 78.00 - Pure hypercholesterolemia, unspecified (4) Hypertension: Status: Chronic Code(s): I10 - Essential (primary) hypertension Qualifiers: Hypertension type: primary hypertension Qualified Code(s): I10 - Essential (primary) hypertension Plan #Severe CAD * admitted with a complaint of chest pain and found to have nonstemi * She has a very strong family history of CAD. Troponins were elevated and EKG showed ST depression in the anterior lateral leads most notably in V3 through V6 * Was started on heparin drip and nitro drip. She was also placed on her home dose of aspirin 81 mg daily and started on high intensity statin. * 2D echo done today and read is pending. She had cardiac cath which showed severe triple-vessel disease. 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 * * #Benign essential hypertension: On hydrochlorothiazide and lisinopril. 2D echo ordered and is pending. Management as per cardiology. #Hyperlipidemia: On statin #History of insomnia: On melatonin as needed and zolpidem #History of osteoarthritis: On glucosamine/chondroitin #DVT prophylaxis: On heparin Medications at Discharge Home Medications aspirin 81 mg tablet,delayed release (Adult Low Dose Aspirin) 81 mg PO QDAY heart Flowgear 11/13/24 glucosamine-chondroitin 250 mg-200 mg tablet (Osteo Bi-Flex) 2 tab PO QDAY supplement 05/12/25 melatonin 10 mg capsule 10 mg PO HS PRN sleep 11/13/24 zolpidem 10 mg tablet (Ambien) 10 mg PO QHS sleep 11/13/24 evolocumab 140 mg/mL subcutaneous pen injector (Repatha SureClick) 140 mg subcut Q2W cholesterol #2 mL 11/22/24 clopidogrel 75 mg tablet 75 mg PO DAILY #30 tabs 05/29/25 isosorbide dinitrate 10 mg tablet 10 mg PO BID #60 tabs 05/29/25 lisinopril 40 mg tablet 40 mg PO DAILY #30 tabs 05/29/25 metoprolol tartrate 25 mg tablet 25 mg PO BID #60 tabs 05/29/25 ranolazine 500 mg tablet,extended release,12 hr 500 mg PO BID #60 tabs 05/29/25 Hospital Course Operations None Procedures 2-D Echocardiogram and Cardiac catheterization Summary of Care Provided Minutes Spent on Discharge: 45 Hospital Course: Patient is a 75-year-old female with past medical history as outlined was admitted to the ED on 05/28/2025 with a chief complaint of chest pain. And lasted about 10 minutes.. Chest pain recurred again later in the especially with exertion and resolved with rest. Her symptoms that started about 4 days prior to admission. The chest pain initially worsened with exertion and relieved with rest. However on the day before admission the chest pain is worsened and became recurrent so she decided to come into the ED. She had 2 brothers and her father 60s and 50s respectively from coronary artery disease. EKG showed no acute ST changes and EKG showed ST depression in the anterior leads mainly V3 through V6. Chest x-ray showed no acute cardiopulmonary findings. She had a strong history of severe coronary artery disease and said both her parents and several of her siblings that had coronary artery disease. initial troponin was 406 and trended upwards to a peak of 494. She was admitted to be managed for non-STEMI. She was started on heparin drip and nitro drip and cardiology was consulted. She was also started on aspirin. He was started on high intensity statin but she had a history of not tolerating the high intensity statin due to myalgia and had been on Repatha. 2D echo showed EF of 55% with stage I diastolic dysfunction and mild aortic stenosis as well as mild segmental systolic dysfunction. She had cardiac cath which showed severe triple-vessel disease. Patient did not want any surgical intervention and opted for medical management. She was therefore placed on aspirin and Plavix as well as continued on the Repatha. She was placed on p.o. metoprolol and Imdur as well as ranolazine. Her blood pressure was running low on the day of discharge so her hydrochlorothiazide was discontinued. She was discharged home on 05/29/2025 and is to follow up with her PCP and cardiology. Patient seen and examined prior to discharge. She had no active complaints and felt well. Review of systems is otherwise negative. Labs and vitals reviewed. Home meds reviewed and reconciled. Physical Exam Const alert, oriented x3, no apparent distress, average body habitus and well nourished General Appearance: cooperative and comfortable HEENT normocephalic, head/scalp atraumatic, hearing grossly normal bilaterally, moist oral mucous membranes and oropharynx normal Eyes EOMs intact bilaterally and conjunctivae normal Neck supple and no JVD Neck Narrative: Trachea midline Resp normal respiratory effort, normal air movement, no retractions, no use of accessory muscles and clear to auscultation bilaterally Cardio regular rate, regular rhythm, S1 normal heart sound, S2 normal heart sound, no murmurs and no rub Cardio Narrative: Systolic murmur 3 out of 6 loudest at left lower sternal border GI normal to inspection, nondistended, normoactive bowel sounds, soft to palpation and non-tender Extremity normal capillary refill, no clubbing, cyanosis or edema and no calf tenderness Extremity Narrative: 2+ radial and pedal pulses General Extremity: no tenderness to palpation of joints or extremities Skin General Skin Exam: no breakdown and turgor normal Neuro oriented x3, CN's II-XII intact bilaterally, moves all extremities, no focal motor deficits and no sensory deficits noted Speech: speech normal Motor Exam: strength 5/5 throughout Psych thought process normal, cooperative and affect normal Appearance: appropriate Weight / BMI Weight Weight: 130 lb 8.218 oz Body Mass Index (BMI) 24.6 ABG / Lab / Microbiology Data 05/29/25 05:51 05/29/25 05:51 Laboratory: Laboratory Results - last 24 hr 05/29/25 05:51: WBC 6.8, RBC 3.81 L, Hgb 11.7 L, Hct 35.2 L, MCV 92.4, MCH 30.7, MCHC 33.2, RDW Std Deviation 42.8, RDW Coeff of Sanjay 12.5, Plt Count 282, MPV 9.5, Immature Gran % (Auto) 0.400, Neut % (Auto) 70.4 H, Lymph % (Auto) 20.1, [place] % (Auto) 6.8, Eos % (Auto) 1.6, Baso % (Auto) 0.7, Absolute Neuts (auto) 4.8, Absolute Lymphs (auto) 1.36, Nucleated RBC % 0, Sodium 140, Potassium 4.5, Chloride 104, Carbon Dioxide 22.7, Anion Gap 13, BUN 31 H, Creatinine 1.26 H, E stim Creat Clear Calc 31.89 L, Est GFR (MDRD) Non-Af 45 L, BUN/Creatinine Ratio 24.4 H, Glucose 147 H, Calcium 9.7 D/C Instructions Discharge Activity: Return to Normal Activity Weight Bearing Status: Weight bearing as tolerated Call your doctor if you observe: Fever of 101 or Higher, Shortness of breath, Dizziness, Swelling in the ankles, Chest pain and Increased palpitations (irregular heartbeat) DC O2, CPAP, BIPAP Needs Home O2 Discharge instructions: No DC home with Oxygen: No Meaningful Use Info Meaningful Use Meaningful Use Diagnoses (Choose all that apply): AMI AMI/Post PCI/Angioplasty Aspirin given w/in 24hrs of arrival?: Yes ASA at discharge?: Yes Antiplatelet Therapy at Discharge:: Yes Statins at discharge?: No Reason statins not ordered:: Allergy Prashant/ARB at discharge?: Yes Beta Nia at discharge?: Yes Done w/ Acute MN measure.: Yes Documented LVEF (%): 55 Discharge Plan Admission Admit Date/Time: 05/28/25 01:39 Primary Reason for Your Visit: nonstemi Attending Provider: Michell Calix Primary Care Provider: Ninoska Sales Consulting Providers: Rubi Moreno; Yue Villanueva Instructions Patient Instructions: Heart Attack Discharge Orders/Prescriptions Prescriptions: New clopidogrel 75 mg Tablet 75 mg PO DAILY Qty: 30 2RF isosorbide dinitrate 10 mg Tablet 10 mg PO BID Qty: 60 2RF lisinopril 40 mg Tablet 40 mg PO DAILY Qty: 30 2RF metoprolol tartrate 25 mg Tablet 25 mg PO BID Qty: 60 2RF ranolazine 500 mg Tablet Extended Release 12 Hr 500 mg PO BID Qty: 60 2RF Continued melatonin 10 mg capsule 10 mg PO HS PRN (Reason: sleep) zolpidem [Ambien] 10 mg tablet 10 mg PO QHS aspirin [Adult Low Dose Aspirin] 81 mg tablet,delayed release (DR/EC) 81 mg PO QDAY glucosamine-chondroitin [Osteo Bi-Flex] 250-200 mg tablet 2 tab PO QDAY Repatha SureClick 140 mg/mL pen injector 140 mg subcut Q2W Qty: 2 11RF Discontinued lisinopril 40 mg tablet 40 mg PO QDAY hydrochlorothiazide 25 MG tablet 25 mg PO DAILY Referrals / Follow Up: Ninoska Sales MD [Primary Care Provider, Family Practice] - Within 1 Week Devan Flores MD [Med Staff - Active Staff, Cardiology] - Within 2 Weeks Disposition Disposition (needs filled in before D/C Order can be placed): Home, Self Care Charges/Coding Visit Charges Inpatient E&M: 45219 Disch Hosp >30min
--- NOTE | 2025-05-29 13:49 | CASEMGMT ---
MAJOR MENDOZA NOTE: Discharge order is in. Ranexa has been e-scribed to [facility]. Call to [facility]. Sanchez for Ranexa is $21.78. RN CM to room. Pt resting in bed. Pt made aware of cost of Ranexa and is aware there are several other Rx's sent to [facility] as well. She voices appreciation for obtaining cost of Ranexa, stating she is aware it can be high in cost. She states, though she has met her deductible this year and is aware her deductible will start over in Jul, so cost may be higher for it then. She denies having any further discharge needs. Eh PALACIOSN RN CM
[2025-05-29 14:28] VITALS: BP 93/59; PULSE 70; RESP 18; TEMP 36.4; O2SAT 96
[2025-05-29] MEDS: 0.9% Normal Saline (1000mL) 1,000 ML 999 ML IV (14:49)
== END 2025-05-29 16:14 | disposition home or self-care (01) | DRG 282 ==
LOC: ED 05-28 01:31 → PCU 05-28 07:08
PROVIDERS: Admitting Provider Internal Medicine; Emergency Provider Emergency Medicine; PCP Family Medicine; Visit Provider Student in an Organized Health Care Education/Training Program
DX: I21.4 Non-ST elevation (NSTEMI) myocardial infarction (principal); E78.00 Pure hypercholesterolemia, unspecified; I10 Essential (primary) hypertension; I25.10 Atherosclerotic heart disease of native coronary artery without angina pectoris; M19.90 Unspecified osteoarthritis, unspecified site; G47.00 Insomnia, unspecified; Z79.02 Long term (current) use of antithrombotics/antiplatelets; Z79.82 Long term (current) use of aspirin; Z79.899 Other long term (current) drug therapy; Z82.49 Family history of ischemic heart disease and other diseases of the circulatory system
CPT/HCPCS: 36415; 71046; 80048; 80053; 80061; 83735; 84100; 84443; 84484; 85025; 85027; 85610; 85730; 93005; 93306; 93458; 99152; 99153; 99284; Q9967; A4216; C1769; C1894

== ENCOUNTER → 2025-06-15 | Outpatient (CLI) | payer MEDICARE, OTHER, SELFPAY ==
--- NOTE | 2025-06-15 08:06 | PCM.CR.HP2 ---
CR - History & Physical General Arrival date:: 06/15/25 Arrival time:: 08:06 Date of Referral:: 06/04/25 Date of CR Evaluation:: 06/15/25 Referring Physician: Dr. Flores Primary Diagnosis: [place]-NonSTEMI<12 months History of Present Cardiac Event Onset Date Acute Myocardial Infarction within 12 months:: Yes (onset05/28/25) Medications Ambulatory Orders ?Medication ?Instructions ?Recorded aspirin 81 mg tablet,delayed 81 mg PO QDAY heart health 11/13/24 release (Adult Low Dose Aspirin) glucosamine-chondroitin 250 mg-200 2 tab PO QDAY supplement 11/13/24 mg tablet (Osteo Bi-Flex) melatonin 10 mg capsule 10 mg PO HS PRN sleep 11/13/24 zolpidem 10 mg tablet (Ambien) 10 mg PO QHS sleep 11/13/24 evolocumab 140 mg/mL subcutaneous 140 mg subcut Q2W cholesterol #2 mL 11/22/24 pen injector (Repatha SureClick) clopidogrel 75 mg tablet 75 mg PO DAILY #30 tabs 05/29/25 isosorbide dinitrate 10 mg tablet 10 mg PO BID #60 tabs 05/29/25 lisinopril 40 mg tablet 40 mg PO DAILY #30 tabs 05/29/25 metoprolol tartrate 25 mg tablet 25 mg PO BID #60 tabs 05/29/25 ranolazine 500 mg tablet,extended 500 mg PO BID #60 tabs 05/29/25 release,12 hr Allergies Allergies Ucsyewr-USD-SgM Reductase Inhibitor Adverse Reaction (Verified 05/27/25 23:21) myalgia Sleep Disorder Evaluation Hx of Sleep Apnea: No Do you snore loudly (louder than talking or can be heard through closed doors)?: No Do you often feel tired/ fatigued/ sleepy during daytime?: No Has anyone observed you stop breathing during sleep?: No History of Hypertension (for STOP score): Yes STOP Results: Negative Advanced Directives Advanced Directives Do you have a Healthcare Power of Operations Forester?: Yes Living Will: Yes Advance Directives Information Provided: No Advance Directives on File: Yes DNR Order?:: No Past Medical History Covid-19 Screening Physicial Symptoms Other Clinical Concerns Exposure Risk Pertinent Comorbidities 65 years or older:: Yes Has a serious heart condition:: Yes Past Medical Illness Medical History Colon polyp Hyperlipidemia Hypertension Giant cell tumor of tendon sheath Hearing problem Breast cancer Breast lump Bone fracture Past Surgical History Surgical History History of lumpectomy of left breast Family History Summary Family History Father , age 58 Hypertension CAD (coronary artery disease) Mother Diabetes Myocardial infarction Brother , age 62 CAD (coronary artery disease) Brother , age 64 CAD (coronary artery disease) Sister CAD (coronary artery disease) Sister Hx of CABG CAD (coronary artery disease) Brother Myocardial infarction Brother Myocardial infarction Social History Smoking History Smoking Status: Never smoker Alcohol Use Alcohol Usage: Yes (rare) Substance Abuse Hx Substance Use: No Occupation Occupation (List type of work in comments):: Retired Social Environment Status Marital Status: Current Living Arrangements Living Environment:: Spouse Children How many children do you have?: 3 Do any of your children live nearby?: Yes Safety Do you feel safe in your surroundings?: Yes Assistance Do you need any assistance at home?: no Review of Systems Review of Systems Hints Review of Present Symptoms: Reports Dizziness/Lightheadedness, Appetite - Normal, Appetite - Special Diet and Sleep - Normal; Denies Shortness of Breath at Rest, Shortness of Breath with Exertion, PVD, Operative Discomfort, Angina, Wound Healing, Fatigue, Heart Arrhythmia/Irregularities or Sexual Changes Pain Is Patient Pain Free?: Yes Risk Factor Assessment Chief Complaint Chief Complaint: WV-NonSTEMI<12 months Vital Signs Pulse Ox: 98 Blood Pressure: 96/50 Pulse Pulse Rate: 58 Pulse Rhythm: Regular Hypertension How long have you been treated?: 20 years Blood Pressure Sitting - Left Arm: 96/50 Stress Stress: Home/Family ( had a stroke) Obesity Height: 5 ft 1 in Weight:: 125 lb Weight in Pounds: 125.0 lbs Body Mass Index (BMI): 23.6 Nutritional Referral for Obesity: No Physical Inactivity Physical Inactivity: Reg Exercise 30 min/day Risk Stratification Risk Guidelines: Lowest Risk: Risk Factor for Smoking, Moderate Risk: Risk Factor for Diabetes, Risk Factor for Obesity, Risk Factor for Sedentary Lifestyle and Risk Factor for Depression and Highest Risk: Risk Factor for Dyslipidemia and Risk Factor for Hypertension For Smoking Smoking Risk Guidelines For Dyslipidemia Dyslipidemia Risk Guidelines For Diabetes Mellitus Diabetes Risk Guidelines For Obesity/Overweight Obesity/Overweight Risk Guidelines For Hypertension Hypertension Risk Guidelines For Sedentary Lifestyle Sedentary Lifestyle Risk Guidelines For Depression Depression Risk Guidelines Family History Family History Father , age 58 Hypertension CAD (coronary artery disease) Mother Diabetes Myocardial infarction Brother , age 62 CAD (coronary artery disease) Brother , age 64 CAD (coronary artery disease) Sister CAD (coronary artery disease) Sister Hx of CABG CAD (coronary artery disease) Brother Myocardial infarction Brother Myocardial infarction Motivation Motivation to Participate On a scale of 1 to 10, how prepared are you to commit to attending program?: 10 What do you see as barriers to successfully being able to complete the program?: [place] What do you see as the benefits of succesfully completing the program? In other words, what do you hope to get out of participating in the program?: energy Are there issues you are dealing with that will interfere with completing the program?: no Do you have a spouse or signficant other, family or friends who will help support you to complete the program?: yes
--- NOTE | 2025-06-15 08:11 | CR.ITP_ITS ---
Diagnosis General Information Admitting Diagnosis: PR-NonSTEMI<12 months Personal Learning Style:: Audio/Visual Barriers to Learning: No Barriers Stage of change r/t lifestyle modifications:: Contemplation Gave educational material for:: Treating Heart Disease, How The Heart Works, What it means to have Heart Disease, How Coronary Artery Disease is Diagnosed, Heart Procedures, What Heart Medications Do, Risk Factors & Modifications, Living an Active Life, Nutrition, Emotions & Heart Disease, Stress Management & Relaxation and Sleep Disorders & Heart Disease Education/Goals Cardiac Rehabilitation Goals Personal Goals: Initial Assessment: Improve management of stress and emotions, Improve energy level, Participate in home exercise program, Improve knowledge of cardiac disease, Improve muscle strength and endurance, Improve diet and eating habits (eat healthier) and Control risk factors (learn risk factor modification) Scale for measuring improvement of personal goals Diagnosis & Disease Process Outcomes/Goals: Pt IDs own risk factors & lifestyle modifications by Session 10, Verbalizes symptoms of angina & response by session 3., Pt independently manages and Other Additional Outcomes/Goals: Plan/Interventions: Assist Pt to ID & engage in lifestyle modification to reduce CVD risk, Instruct on individual risk factors, Review symptoms of angina & emergency actions, Review secondary diagnosis & identify educational needs. and Other see comment 30 day Reassessments:: Not Met 30 day Reassessments:: Not Met 30 day Reassessments:: Not Met 30 day Reassessments:: Not Met Final Reassessments:: Not Met Safety Referral to Physical Therapy: No Referral to [facility] Case Management: No Fall Risk Assessed:: Yes Assistive Devices:: None Exercise - Initial Assessment Visit Date of Eval: 06/15/25 (initial eval) Mets: Pre-: >5 METS for 30 minutes by discharge Physician Prescribed Exercise Modalities: Treadmill, Rower, Schwinn Airdyne AD-7, SciFit Stepper, SciFit Pro- II Ergometer and SciFit Lateral [place] Frequency: 3x/week for 12 weeks [36 sessions] Intensity: 60-80% of age predicted maximum heart rate reserve Duration: 30 - 45 minutes Current METSs:: 3 Target Heart Rate:: 87-109 Resting Blood Pressure: 96/50 EKG Type: NSR Outcomes & Goals Goals:: Verbalizes understanding of THR, RPE & goal METS by session 6, Documents in home exercise log/reports 30 min aerobic 5 day/wk by DC, Demonstrates accurate pulse taking by DC and Other additional outcome/goals: see below Intervention & Plan Exercise Program Goals: Instruct on personal THR & RPE, Instruct on MET level & personal MET goal, Show patient to take own pulse /validate performance until accurate, Instruct on home exercise and Other additional plan/int Physical Activity Home Exercise Physical Activity - Home Exercise: Safe Exercise, Warm-up, Self-monitoring, Cool-Down, Home Exercise > 30 min Daily and Sitting Time <3 hours/daily Outcomes & Goals Outcomes/Goals: Demonstrates correct Warm-up/exercise Cool-Down (S3) if = 2.5 METs, Verbalizes symptoms of exercise intolerance by Session 3 (S3), Demonstrate safe equipment use (S3) & follows exercise prescrition (6) and Other: See below Intervention & Plan Plan/Intervention: Instruct warm-up & cool-down if exercising at > 2 METs, Instruct on symptoms of exercise intolerance & actions to take, Instruct & monitor on saf, Assess intial functional capacity & safety risk and Other See below Nutrition - Initial Assessment Program Goals Nutrition Program Goals Patient has diagnosis of Hyperlipidemia (ICD E78)?: Yes Visit Date of Eval: 06/15/25 (initial eval, Nutrition score of 4) Cholesterol/Lipids (Other Core Measures) Determine presence & major risk factors that modify LDL goal: Cigarette smoking, Hypertension or hypertensive medication, Low HDL cholesterol <40 mg/dL*, Family history of premature CHD in Male < 55 years: female <65 yearsFa and Age men > 45 years; women >/= 55 years Outcomes/Goals: Pt IDs own risk factors & lifestyle modifications by Session 10, Verbalizes symptoms of angina & response by session 3., Pt independently manages and Other Additional Outcomes/Goals: Intervention/Plan: Advocate for lipid panel cholesterol medication if applicable, Instruct on personal lipid levels & lipid goals/NCEP guidelines, Instruct on cholesterol and Other additional plan/int Referral to dietitian:: No Diabetes (Other Core Measures) Diabetes Type: Not Applicable Weight Mgt (Other Care) Height: 5 ft 1 in Weight:: 125 lb BMI: 23.6 Diagnosis Overweight/Obesity BMI> 30% ICD-10 E66: No Diagnosis High BMI/Morbid Obesity BMI> 35% ICD-10 Z68: No Outcomes/Goals: Pt sets, maintains & shows weight loss goal & trend during rehab and Other additional outcomes/goals Intervention/Plan: Instruct on ideal BMI & set weight loss goal w/patient, Assist pt to ID & incorporate diet changes for weight loss by S9, Refer to Structured Weight Loss program as appropriate, Encourage goal of using 250- 300dcal per session for weight loss and Other additional plan/interventions Healthy Eating Habits Will attend diet classes:: Yes Outcomes/Goals:: Consume diet rich in vegs,fruits,whole grain/high fiber,fish,lean meat, Limit sat/trans fats,cholesterol & added salts & sugars and Other additional outcome/goals: Intervention/Plan:: Assess current eating habits and Other Additional plan/interventions Education Gave educational materials for:: Signs & symptoms of hypoglycemia, Signs & symptoms of hyperglycemia, Relate diabetes to coronary artery disease and Healthy eating Core - Initial Assessment Visit Date of Eval: 06/15/25 (intial eval) Medication Compliance Preventative Medication(s):: Aspirin, JAIMIE inhibitor and Clopidogrel/P2Y12 inhibit H/O mental health issues: depression, anxiety, or addiction?: No Doesn?t believe in the benefits of treatment?: No Believes medications are unnecessary or harmful?: No Has a concern about medication side effects?: No Expresses concern over the cost of medications?: No Outcomes/Goals: Verbalizes medications,desired effect & common side effects @ DC, Pt self-reports following medication regimen, Keeps card in wallet w/medications listed by DC and Other additional outcome/goals: Interventions/plans: Instruct on medication effects & side effects, Review medication list w/patient every two weeks, Instruct importance of taking meds as ordered & assist problem solving and Other additional Tobacco Use Tobacco Use: Non-smoker Hypertension Hypertension Diagnosis:: Hypertension ICD-10 I10 Resting Blood Pressure:: 96/50 [employer] Hypertension Guidelines Outcomes/Goals: Able to verbalize/achieve optimal blood pressure <130/80, Incorporates diet changes & exercise for blood pressure control by DC and Other additional outcomes/goals Interventions/plan: Instruct on optimal blood pressure, hypertension & medications, Instruct on effects of sodium, alcohol, stress, exercise &hypertension and Other additional plan/interventions Tobacco Cessation Referral Smoking Cessation Referral:: No Individual Education/Counseling:: No Education Schedule Given:: Yes Psychosocial - Initial Assess VIsit Date of Eval: 06/15/25 (initial eval) History of previous Mental disease:: No Psychosocial Test Tool Used:: [employer] QOL Cardiac and PHQ-9 Questionnaire phq-9 Severity See PHQ-9 Score: 0 Referral to Behavioral Health PS - Interventions: Yes: Attend Stress Management Classes Outcomes/Goals: See list Psychosocial Outcomes/Goals:: ID's personal stressors & 2 strategies to manage stress by discharge and Other Additional outcome/goals: Intervention/Plan: See List Interventions/Plan:: Assess stressors,coping strategies & signs of derpression on admission, Instruct/assist pt to develop coping & personal stress Mgt strategies, Refer to Behavioral Health if appropriate, Refer to Physician if appropriate, Instruct patient to recognize signs & symptoms of depression, Instruct patient to recog and Other additional plan/intervention Exercise - 30-day Assessment Physician Prescribed Exercise Modalities: Treadmill, Rower, Schwinn Airdyne AD-7, SciFit Stepper, SciFit Pro- II Ergometer and SciFit Lateral [place] Exercise - 60-day Assessment Physician Prescribed Exercise Modalities: Treadmill, Rower, [employer]inn Airdyne AD-7, SciFit Stepper, SciFit Pro- II Ergometer and SciFit Lateral Family Practice Nurse Practitioner Exercise - 90-day Assessment Physician Prescribed Exercise Modalities: Treadmill, Rower, Schwinn Airdyne AD-7, SciFit Stepper, SciFit Pro- II Ergometer and SciFit Lateral [place] Exercise - Final/Discharge Physician Prescribed Exercise Modalities: Treadmill, Rower, Schwinn Airdyne AD-7, SciFit Stepper, SciFit Pro- II Ergometer and SciFit Lateral Family Practice Nurse Practitioner Frequency: 3x/week for 12 weeks [36 sessions] Intensity: 60-80% of age predicted maximum heart rate reserve Current METSs:: 3 Target Heart Rate:: 87-109 Nutrition - 30-Day Assessment Weight Mgt (Other Care) Height: 5 ft 1 in Weight:: 125 lb BMI: 23.6 Nutrition - 60-Day Assessment Weight Mgt (Other Care) Height: 5 ft 1 in Weight:: 125 lb BMI: 23.6 Core - Final Assessment Hypertension Resting Blood Pressure:: 96/50 [employer] Hypertension Guidelines Core - 60-Day Assessment Hypertension Resting Blood Pressure:: 96/50 [employer] Hypertension Guidelines Psychosocial - 30-Day Assess Referral to Behavioral Health PS - Interventions: Yes: Attend Stress Management Classes Psychosocial - 60-Day Assess Referral to Behavioral Health PS - Interventions: Yes: Attend Stress Management Classes Psychosocial - 90-Day Assess Referral to Behavioral Health PS - Interventions: Yes: Attend Stress Management Classes Psychosocial - Final Assessmen Psychosocial Test phq-9 Severity See PHQ-9 Score: 0 Referral to Behavioral Health PS - Interventions: Yes: Attend Stress Management Classes Nutrition - 90-Day Assessment Weight Mgt (Other Care) Height: 5 ft 1 in Weight:: 125 lb BMI: 23.6 Nutrition - Final Assessment Program Goals Patient has diagnosis of Hyperlipidemia (ICD E78)?: Yes Weight Mgt (Other Care) Height: 5 ft 1 in Weight:: 125 lb BMI: 23.6
[2025-06-15 08:25] VITALS: BP 96/50; PULSE 58; O2SAT 98; BMI 23.6
[2025-06-15 08:49] VITALS: BP 96/50; BMI 23.6
== END | disposition home or self-care (01) ==
PROVIDERS: PCP Family Medicine; Referring Provider Internal Medicine Cardiovascular Disease; Visit Provider Internal Medicine Cardiovascular Disease
DX: I10 Essential (primary) hypertension (principal); I25.2 Old myocardial infarction; E78.00 Pure hypercholesterolemia, unspecified

== ENCOUNTER → 2025-06-22 | Outpatient (CLI) | payer MEDICARE, OTHER, SELFPAY ==
[2025-06-15 08:49] VITALS: BMI 23.6
[2025-06-22 10:15] LABS: Hematocrit 33.9 % (37-47); Hemoglobin 11.0 g/dL (12.0-15.0); Immature Granulocytes Count 0.020 X10^3/uL (0.0-0.0); Mean Corp Hgb Conc 32.4 g/dL (32-36); Mean Corpuscular Volume 93.4 fL (81-99); Mean Platelet Vol. 9.8 fl (6.2-12.0); NRBC Flagged by Analyzer 0 % (0-5); Platelet Count 300 K/mm3 (150-450); RBC Distribution Width CV 12.1 % (11.6-14.6); RBC Distribution Width SD 41.8 fl (35.1-43.9); Red Blood Count 3.63 M/mm3 (4.2-5.4); White Blood Count 7.6 K/mm3 (4.4-11.0)
[2025-06-22 11:09] LABS: AST(SGOT) 24 U/L (<=31); Alanine Aminotransfer ALT/SGPT 38 U/L (<=34); Albumin, Serum 4.1 g/dL (3.4-4.8); Alkaline Phosphatase 126 U/L (35-104); Anion Gap 11 (5-15); BUN 16 mg/dL (4-19); BUN/Creat Ratio 18.1 RATIO (10-20); Calcium,Total 9.7 mg/dL (7.6-11.0); Carbon Dioxide 24.1 mmol/L (21.0-32.0); Chloride 101 mmol/L (98-108); Globulin 2.8 g/dL (2.2-4.2); Glucose 106 mg/dL (70-99); Potassium 4.7 mmol/L (3.3-5.1)
== END | disposition home or self-care (01) ==
PROVIDERS: PCP Family Medicine; Referring Provider Family Medicine; Visit Provider Family Medicine
DX: I10 Essential (primary) hypertension (principal)
CPT/HCPCS: 36415; 80053; 84443; 85025

== ENCOUNTER 2025-07-04 10:15 | Outpatient (RCR) | payer MEDICARE, OTHER, SELFPAY ==
[2025-06-15 08:49] VITALS: BMI 23.6
== END 2025-07-04 23:59 ==
LOC: CR 10:15
PROVIDERS: PCP Family Medicine; Referring Provider Internal Medicine Cardiovascular Disease; Visit Provider Internal Medicine Cardiovascular Disease
DX: I21.4 Non-ST elevation (NSTEMI) myocardial infarction (principal); E78.00 Pure hypercholesterolemia, unspecified; I10 Essential (primary) hypertension
CPT/HCPCS: 93798